=== PATIENT | male | born 1940 | race Caucasian/White ===

== ENCOUNTER 2023-07-14 10:01 | Outpatient (OUT) | payer MEDICARE, SELFPAY ==
[2023-07-14 07:49] LABS: Basophils Absolute Auto 0.1 10^3/uL (0.0-0.1); Basophils Percent Auto 1.2 % (0.2-2.0); Eosinophils Absolute Auto 0.4 10^3/uL (0.0-0.7); Eosinophils Percent Auto 7.3 % (0.9-7.0); Hematocrit 48.8 % (42.0-54.0); Hemoglobin 16.7 g/dL (14.0-18.0); Immature Granulocytes Abs Auto 0.01 10^3/uL (0.00-0.03); Immature Granulocytes Pct Auto 0.2 % (0.0-0.5); Lymphocytes Absolute Auto 1.7 10^3/uL (1.2-3.8); Lymphocytes Percent Auto 33.6 % (20.5-60.0); Mean Corpuscular HGB Conc 34.2 g/dL (29.9-35.2); Mean Corpuscular Hemoglobin 31.6 pg (25.9-34.0); Mean Corpuscular Volume 92.2 fL (80.0-94.0); Mean Platelet Volume 9.9 fL (9.5-13.5); Monocytes Absolute Auto 0.6 10^3/uL (0.3-0.8); Monocytes Percent Auto 11.4 % (1.7-12.0); Neutrophils Absolute Auto 2.3 10^3/uL (1.4-6.5); Neutrophils Percent Auto 46.3 % (43.0-75.0); Platelet Count 163 10^3/uL (150-450); Red Blood Count 5.29 10^6/uL (4.70-6.10); Red Cell Distribution Width 13.3 % (11.0-15.0); White Blood Count 4.9 10^3/uL (4.0-11.0)
[2023-07-14 07:59] LABS: Estimated Average Glucose 103 mg/dL; Glycohemoglobin A1C 5.2 % (4.5-6.2)
[2023-07-14 08:16] LABS: Alanine Aminotransferase 38 U/L (16-63); Albumin Globulin Ratio 1.3; Alkaline Phosphatase 100 U/L (46-116); Anion Gap 11.5; Aspartate Amino Transferase 21 U/L (15-37); BUN Creatinine Ratio 16.5; Bilirubin Total 0.7 mg/dL (0.2-1.0); Calcium 8.4 mg/dL (8.5-10.1); Carbon Dioxide 27.4 mmol/L (21.0-32.0); Chloride 105 mmol/L (98-107); Chol HDL Ratio 5.8; Cholesterol 145 mg/dL (<=200); Estimated GFR (African America >60 (>=60); Estimated GFR (Non-African Ame >60 (>=60); Globulin 3.1 g/dL; Glucose 104 mg/dL (74-106); HDL Cholesterol 25 mg/dL (40-60); Potassium 3.9 mmol/L (3.5-5.1); Sodium 140 mmol/L (136-145); Thyroid Stimulating Hormone 4.319 uIU/mL (0.358-3.740); Total Protein 7.1 g/dL (6.4-8.2); Triglycerides 718 mg/dL (<=150); VLDL CHOLESTEROL 143.6 mg/dL
[2023-07-14 08:45] LABS: LDL Cholesterol Direct 52 mg/dL
== END 2023-07-14 10:02 | disposition home or self-care (01) ==
LOC: LAB 07-20 10:02
PROVIDERS: PCP Family Medicine; Visit Provider Family Medicine
DX: E03.9 Hypothyroidism, unspecified (principal); Z79.899 Other long term (current) drug therapy; R53.83 Other fatigue; E78.1 Pure hyperglyceridemia; E78.5 Hyperlipidemia, unspecified; R73.09 Other abnormal glucose
CPT/HCPCS: 36415; 80053; 80061; 83036; 83721; 84439; 84443; 85025

== ENCOUNTER 2023-09-12 10:38 | Outpatient (OUT) | payer MEDICARE, SELFPAY ==
[2023-09-12 10:57] LABS: Basophils Absolute Auto 0.1 10^3/uL (0.0-0.1); Basophils Percent Auto 0.9 % (0.2-2.0); Eosinophils Absolute Auto 0.3 10^3/uL (0.0-0.7); Eosinophils Percent Auto 5.2 % (0.9-7.0); Hematocrit 46.6 % (42.0-54.0); Hemoglobin 15.7 g/dL (14.0-18.0); Immature Granulocytes Abs Auto 0.03 10^3/uL (0.00-0.03); Immature Granulocytes Pct Auto 0.5 % (0.0-0.5); Lymphocytes Absolute Auto 1.7 10^3/uL (1.2-3.8); Lymphocytes Percent Auto 25.4 % (20.5-60.0); Mean Corpuscular HGB Conc 33.7 g/dL (29.9-35.2); Mean Corpuscular Hemoglobin 31.3 pg (25.9-34.0); Mean Platelet Volume 9.5 fL (9.5-13.5); Monocytes Absolute Auto 0.8 10^3/uL (0.3-0.8); Monocytes Percent Auto 12.5 % (1.7-12.0); Neutrophils Absolute Auto 3.6 10^3/uL (1.4-6.5); Neutrophils Percent Auto 55.5 % (43.0-75.0); Platelet Count 199 10^3/uL (150-450); Red Blood Count 5.01 10^6/uL (4.70-6.10); Red Cell Distribution Width 12.9 % (11.0-15.0); White Blood Count 6.5 10^3/uL (4.0-11.0)
[2023-09-12 11:33] LABS: Alanine Aminotransferase 26 U/L (16-63); Albumin Globulin Ratio 1.1; Albumin Level 3.6 g/dL (3.4-5.0); Alkaline Phosphatase 107 U/L (46-116); Anion Gap 9.8; Aspartate Amino Transferase 16 U/L (15-37); BUN Creatinine Ratio 15.4; Bilirubin Total 0.6 mg/dL (0.2-1.0); Calcium 8.7 mg/dL (8.5-10.1); Carbon Dioxide 28.5 mmol/L (21.0-32.0); Chloride 105 mmol/L (98-107); Estimated GFR (African America >60 (>=60); Estimated GFR (Non-African Ame 59 (>=60); Globulin 3.4 g/dL; Glucose 89 mg/dL (74-106); Potassium 4.3 mmol/L (3.5-5.1); Sodium 139 mmol/L (136-145)
== END 2023-09-12 10:39 | disposition home or self-care (01) ==
LOC: LAB 10:41
PROVIDERS: PCP Family Medicine; Visit Provider Family Medicine
DX: R41.3 Other amnesia (principal); Z23 Encounter for immunization; E78.5 Hyperlipidemia, unspecified; R06.00 Dyspnea, unspecified; E03.9 Hypothyroidism, unspecified; I11.0 Hypertensive heart disease with heart failure
CPT/HCPCS: 36415; 80053; 83880; 85025

== ENCOUNTER 2023-09-26 12:47 | Outpatient (OUT) | payer MEDICARE, SELFPAY ==
--- NOTE | 2023-09-26 13:37 | CA_ITS ---
Patient Name: ESPERANZA POLANCO MR#: [id number] : 1940 Exam Date: 09/26/2023 Ordering Doctor: DR Wicho Dominguez . ECHOCARDIOGRAM REPORT PROCEDURE: CA ECHO DOPPLER COMPLETE INDICATIONS: Dyspnea, hypertension COMPARISON: None. DESCRIPTION: COMPLETE ECHOCARDIOGRAM Real-time transthoracic echocardiography with 2D, M-mode, spectral and color flow Doppler performed. QUALITY: Technical quality was good. LEFT VENTRICLE: Normal chamber size. Proximal septal hypertrophy (sigmoid septum). LV EF: Global left ventricular systolic function is normal; visually estimated ejection fraction is 55 to 60%. No obvious wall motion abnormalities. DIASTOLIC: Normal diastolic function. ATRIAL SEPTUM: Inadequately seen. LEFT ATRIUM: Normal chamber size. RIGHT ATRIUM: Normal chamber size. RIGHT VENTRICLE: Normal chamber size. Normal right ventricular systolic function. TRICUSPID VALVE: Normal mobility and thickness. Mild regurgitation. Doppler studies reveal mildly (35-45) elevated right sided pressures. RVSP 37 mmHg MITRAL VALVE: Normal mobility and thickness. No evidence of mitral valve stenosis. There is no mitral annular calcification. No mitral regurgitation. AORTIC VALVE: Normal trileaflet appearance. No visible sclerosis. Normal leaflet mobility. No evidence of aortic valve stenosis. No aortic regurgitation. AORTIC ROOT: Normal diameter and appearance. PULMONIC VALVE: Normal thickness and mobility. No stenosis. Trivial regurgitation. PERICARDIUM: No evidence of pericardial effusion. IVC: Collapses with inspirations. IVC is normal in size. CONCLUSION: 1. Global left ventricular systolic function is normal; visually estimated ejection fraction is 55 to 60% 2. The right ventricle is normal in size and systolic function 3. Normal diastolic function 4. Mild tricuspid regurgitation 5. Mildly elevated right ventricular systolic pressure Adult Echocardiography Procedure Report Left Ventricle LVEDD (3.7 - 5.6 cm): 3.66 cm LVESD (2.2 - 4.0 cm): 2.95 cm LVIVS thickness (0.6 - 1.2 cm): 1.27 cm LVPW thickness (0.5 - 1.0 cm): 1.00 cm e': 0.07 m/s E - e': 8.56 LVOT Max Gradient: 4.58 mm[Hg] LVOT Area (cm2): 1.07 m/s Peak Velocity (LVOT): 1.07 m/s Mean Velocity (LVOT): LVOT Diameter 2.90 cm Left Ventricular Ejection Fraction: Left Atrium LA Volume Index (2D A2C): 25.99 ml/m2 Left Atrium Systolic Dimension: 2.02 cm Mitral Valve MV E to A Ratio: 0.68 MV Max Gradient: MV Mean Gradient: Mitral Valve A-Wave Peak Velocity: 0.94 m/s Mitral Valve E-Wave Peak Velocity: 0.64 m/s Cardiovascular Orifice Area: Right Ventricle RV Internal Diastolic Dimension: Aorta AO Root Diam: 3.48 cm Ascending Ao Diam: 3.57 cm Aortic Valve AoV Area (Peak Yogi): 5.42 cm2, 5.42 cm2 AoV Area (VTI): Deceleration Moca: Pressure Half-Time: Peak Velocity(Antegrade Flow): 1.30 m/s Peak Gradient(Antegrade Flow): 6.78 mm[Hg] Mean Velocity(Antegrade Flow): Mean Gradient(Antegrade Flow): Velocity Time Integral: Tricuspid Valve Peak Velocity (Regurgitant Flow): 2.41 m/s, 2.91 m/s, 2.29 m/s Peak Velocity: Pulmonic Valve Mean Gradient: Mean Velocity: Peak Velocity: 1.22 m/s Peak Gradient: 5.21 mm[Hg], 6.67 mm[Hg] Right Atrium Right Atrium Systolic Pressure: 48.53 ml, 48.53 ml Dictated by: Dhruv Guo M.D. on 09/28/2023 at 14:11 Approved by: Dhruv Guo M.D. on 09/28/2023 at 14:17
== END 2023-09-26 12:48 | disposition home or self-care (01) ==
LOC: CARD 12:47
PROVIDERS: PCP Family Medicine; Visit Provider Family Medicine
DX: R06.00 Dyspnea, unspecified (principal)
CPT/HCPCS: 93306

== ENCOUNTER 2023-10-09 06:56 | Outpatient (OUT) | payer MEDICARE, SELFPAY ==
--- NOTE | 2023-10-09 06:15 | NM_ITS ---
Patient Name: ESPERANZA POLANCO MR#: [id number] : 1940 Exam Date: 10/09/2023 Ordering Doctor: DR Wicho Dominguez . RADIOLOGY REPORT PROCEDURE: NM OLAF PERF SPECT REST STR COMPARISON: None. INDICATIONS: DYSPNEA TECHNIQUE: Exam Description: Stress/Rest one day protocol gated SPECT Rest Imagin.4 mCi Tc-99m Cardiolite IV on 10/09/2023 Stress Imaging 30.6 mCi Tc-99m Cardiolite IV on 10/09/2023 Exercise Protocol: 0.4 mg Lexiscan given IV Heart Rate (bpm): Rest: 54 Max: 80 PMHR: 58 Blood Pressure: Rest: 170/104 Max: 198/118 Symptoms: Rest and peak stress ECG findings were normal and the exercise portion of the study was normal per attending physician Dr. Johnson . For more details please see separate cardiac stress test report. FINDINGS: QUALITY OF STUDY: Excellent. PERFUSION DEFECT: None. LOCATION: N/A SIZE: N/A. SEVERITY: N/A. TYPE: N/A. WALL MOTION: Normal. LV SIZE: Normal. 84 mL. TID / TCD: None; 0.8 LVEF: Normal. Calculated EF 79%. SUMMARY: Myocardial perfusion imaging study is NORMAL. CONCLUSION: 1. Normal nuclear medicine myocardial perfusion scan. Dictated by: Oswaldo Grigsby M.D. on 10/09/2023 at 15:14 Approved by: Oswaldo Grigsby M.D. on 10/09/2023 at 15:29
[2023-10-09] MEDS: REGADENOSON 0.4 MG/5 ML SYRINGE IV (08:24)
--- NOTE | 2023-10-09 11:20 | P.STRESS_ITS ---
Stress Test Stress Test Requesting physician: Wicho Dominguez Procedure: Lexiscan Cardiolite stress test General Information: Reason for Stress Test: Dyspnea Cardiac History and Risk Factors: History of CAD. Brother has rheumatic heart disease. Resting 12 - Lead Electrocardiogram: Rate & rhythm: Sinus bradycardia at a rate of 53. [place]: Normal T-waves: Normal orientation ST-segments: Slight depression/downsloping in II & aVF, and V5 & V6 Stress Test: Protocol: Lexiscan protocol was initiated with injection of 0.4mg Lexiscan IV push followed by Cardiolite. Blood pressure: Initial: 170/104, Maximum: 198/118 Rate & rhythm: Patient remained in sinus rhythm during the exercise and recovery portions of the study.? The maximum heart rate was 80, which was 58% of the maximum predicted heart rate 136. Occasional PAC & PVC noted. ST-segments & T-waves: There were no T-wave changes and no ST-segment changes when compared to the baseline EKG. Patient response/symptoms: There were no symptoms similar to the chief complain t. Interpretation: Normal Lexiscan Cardiolite stress test. Asymptomatic. Cardiolite imaging interpretation will be reported separately. Clinical correlation required.?
== END 2023-10-09 06:57 | disposition home or self-care (01) ==
LOC: NM 06:56
PROVIDERS: PCP Family Medicine; Visit Provider Family Medicine
DX: R06.00 Dyspnea, unspecified (principal)
CPT/HCPCS: 78452; 93017; A9500; J2785

== ENCOUNTER 2024-05-09 22:23 | Observation (INO) | payer MEDICARE, SELFPAY ==
[2024-05-09] VITALS (12 sets, daily range): BP systolic 173–202; BP diastolic 116–122; PULSE 63–84; TEMP 36.6; O2SAT 95–98; BMI 28.3
--- OUTSIDE RECORDS SUMMARY | 2024-05-09 22:32 | XMS_ITS | CCD ---
Author Organization [facility] Care Team Providers Care Baggagemaster Name Role Phone PHYSICIAN, DEFAULT Unavailable Unavailable PHYSICIAN, DEFAULT Unavailable Unavailable SERINA, DR CALDERÓN Primary Care Unavailable HAY, DR HAMMER Admitting Unavailable HAY, DR HAMMER Attending Unavailable SERINA, DR CALDERÓN Admitting Unavailable SERINA, DR CALDERÓN Attending Unavailable SERINA, DR CALDERÓN Primary Care Unavailable SERINA, DR CALDERÓN Consulting Unavailable ZIEBER, DR BERNIE Jacobs Consulting Unavailable SERINA, DR CALDERÓN Admitting Unavailable SERINA, DR CALDERÓN Attending Unavailable SERINA, DR CALDERÓN Primary Care Unavailable SERINA, DR CALDERÓN Consulting Unavailable SERINA, DR CALDERÓN Primary Care Unavailable SERINA, DR CALDERÓN Admitting Unavailable SERINA, DR CALDERÓN Attending Unavailable SERINA, DR CALDERÓN Consulting Unavailable HOWARD QIU Consulting Unavailable TATO, KAIDEN Consulting Unavailable CEFERINO VALDOVINOS Consulting Unavailable Allergies Allergy Classification Reported Allergen(s) Allergy Type Date of Onset Reaction(s) Facility (1 source) Colestipol Drug Allergy [facility] Repository Problems Problem Classification Problem Date Documented Date Episodic/Chronic Calculus of urinary tract (2 sources) Calculus of kidney; Translations: [Personal history of urinary calculi] Onset: 2 Episodic Cardiac dysrhythmias (1 source) Bradycardia, unspecified; Translations: [BRADYCARDIA UNSPECIFIED] Onset: 2 Episodic Coronary atherosclerosis and other heart disease (2 sources) Atherosclerotic heart disease of jena coronary artery without angina pectoris; 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] Onset: 2 Chronic Disorders of lipid metabolism (1 source) Pure hypercholesterolemia, unspecified; Translations: [PURE HYPERCHOLESTEROLEMIA UNSPEC] Onset: 2 Chronic Essential hypertension (1 source) Essential (primary) hypertension; Translations: [ESSENTIAL PRIMARY HYPERTENSION] Onset: 2 Chronic Genitourinary symptoms and ill-defined conditions (4 sources) Hematuria, unspecified; Translations: [HEMATURIA UNSPECIFIED] Onset: 2 Episodic Hyperplasia of prostate (1 source) Benign prostatic hyperplasia without lower urinary tract symptoms; Translations: [BENIGN PROSTATIC HYPRPLASIA WO LUTS] Onset: 2 Chronic Malaise and fatigue (1 source) Other fatigue; Translations: [OTHER FATIGUE] Onset: 2 Episodic Nonspecific chest pain (4 sources) Chest pain, unspecified; Translations: [Other chest pain] Onset: 2 Episodic Other aftercare (1 source) Other shelter (current) drug therapy; Translations: [OTH INTERMEDIATE CURRENT DRUG THERAPY] Onset: 2 Episodic Other aftercare (1 source) 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; 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] Onset: 2 Episodic Other ear and sense organ disorders (1 source) Unspecified hearing loss, unspecified ear; Translations: [UNS HEARING LOSS UNSPECIFIED EAR] Onset: 2 Chronic Other lower respiratory disease (1 source) Dyspnea, unspecified; Translations: [DYSPNEA UNSPECIFIED] Onset: 2 Episodic Residual codes; unclassified (4 sources) Procedure and treatment not carried out for other reasons; Translations: [PROC AND TX NOT CARRIED OUT OTH REASONS] Onset: 2 Episodic Thyroid disorders (1 source) Hypothyroidism, unspecified; Translations: [HYPOTHYROIDISM UNSPECIFIED] Onset: 2 Chronic Unclassified (1 source) CONTACT W/AND (SUSP) EXPOS COVID-19; Translations: [CONTACT W/AND (SUSP) EXPOS COVID-19] Onset: 2 Results Test Name Value Interpretation Reference Range Facil ity US KIDNEYS BLADDERon 022 US KIDNEYS BLADDER EXAMINATION: US KIDNEYS BLADDER HISTORY: Blood in urine COMPARISON: No relevant comparison available. TECHNIQUE: Ultrasound examination was performed of the kidneys and urinary bladder. FINDINGS: RIGHT KIDNEY: Contain several small nonobstructing stones. Mild cortical thinning. No hydronephrosis or mass. Kidney: 10.2 x 5.2 x 5.4 cm LEFT KIDNEY: Contain several small nonobstructing stones, a few benign-appearing cysts, largest is 3.5 cm. Mild cortical thinning. Kidney: 12.3 x 4.9 x 4.7 cm BLADDER: Enlarged heterogeneous prostate protruding into base of bladder, 8.0 x 4.8 x 5.8 cm (115 cc). No focal bladder wall thickening or stones. URETERAL JETS: Visualized bilaterally. IMPRESSION: 1. Bilateral nonobstructing nephrolithiasis. No appreciable renal mass. 2. Enlarged prostate protruding into base of bladder. No appreciable bladder mass. Electronically authenticated by: BERNIE COLINDRES Date: 2022-09-12 10:13 Normal [facility] PSA, FREE AND TOTAL RATIOon 09-10-2022 % Free PSA 44.1 % Normal [facility] Comment on above: Result Comment: The table below lists the probability of prostate cancer for men with non-suspicious FIDEL results and total PSA between 4 and 10 ng/mL, by patient age (Aida et al, LOLI 1998, 279:1542). % Free PSA 50-64 yr 65-75 yr 0.00-10.00% 56% 55% 10.01-15.00% 24% 35% 15.01-20.00% 17% 23% 20.01-25.00% 10% 20% >25.00% 5% 9% Please note: Aida et al did not make specific recommendations regarding the use of percent free PSA for any other population of men. Performed By: #### C MP, BNP #### [facility] [address] [place] [address] Dr. Yaz Nur Prostate specific Ag [Mass/Vol] 2.7 ng/mL Normal 0.0-4.0 [facility] Comment on above: Result Comment: Cooper MAY methodology. . According to the [place] [employer], Serum PSA should decrease and remain at undetectable levels after radical prostatectomy. The AUA defines biochemical recurrence as an initial PSA value 0.2 ng/mL or greater followed by a subsequent confirmatory PSA value 0.2 ng/mL or greater. Values obtained with different assay methods or kits cannot be used interchangeably. Results cannot be interpreted as absolute evidence of the presence or absence of malignant disease. Performed By: #### C MP, BNP #### [facility] [address], [place] [address] Dr. Yaz Nur PSA, Free 1.19 ng/mL Normal N/A [facility] Comment on above: Result Comment: Cooper MAY methodology. Performed By: #### C MP, BNP #### [facility] [address] [place] [address] Dr. Yaz Nur CBC AUTO DIFFon 09-09-2022 BASO # 0.1 103/ul Normal 0.0-0.1 [facility] Comment on above: Performed By: #### C MP, BNP #### [facility] [address] [place] [address] Dr. Yaz Nur Basophils/100 WBC (Bld) 1.0 % Normal 0.2-2.0 [facility] Comment on above: Performed By: #### C MP, BNP #### [facility] [address] [place] [address] Dr. Yaz Nur EO # 0.5 103/ul Normal 0.0-0.7 [facility] Comment on above: Performed By: #### C MP, BNP #### [facility] [address] [place] [address] Dr. Yaz Nur Eosinophils/100 WBC (Bld) 8.8 % Critically high 0.9-7.0 [facility] Comment on above: Performed By: #### C MP, BNP #### [facility] [address] [place] [address] Dr. Yaz Nur Erythrocyte distribution width (RBC) [Ratio] 13.4 % Normal 11.0-15.0 [facility] Comment on above: Performed By: #### C MP, BNP #### [facility] [address] [place] [address] Dr. Yaz Nur Hematocrit (Bld) [Volume fraction] 46.8 % Normal 42.0-54.0 [facility] Comment on above: Performed By: #### C MP, BNP #### [facility] [address] [place] [address] Dr. Yaz Nur Hemoglobin (Bld) [Mass/Vol] 16.2 g/dL Normal 14.0-18.0 [facility] Comment on above: Performed By: #### C MP, BNP #### [facility] [address] [place] [address] Dr. Yaz Nur IG # 0.01 10e3/ul Normal 0.00-0.03 [facility] Comment on above: Performed By: #### C MP, BNP #### [facility] [address] [place] [address] Dr. Yaz Nur IG % 0.2 % Normal 0.0-0.5 [facility] Comment on above: Performed By: #### C MP, BNP #### [facility] [address] [place] [address] Dr. Yaz Nur LYMPH # 1.5 103/ul Normal 1.2-3.8 [facility] Comment on above: Performed By: #### C MP, BNP #### [facility] [address] [place] [address] Dr. Yaz Nur Lymphocytes/100 WBC (Bld) 29.2 % Normal 20.5-60.0 [facility] Comment on above: Performed By: #### C MP, BNP #### [facility] [address] [place] [address] Dr. Yaz Nur MANUAL DIFF REQ NO Normal [facility] Comment on above: Performed By: #### C MP, BNP #### [facility] [address] [place] [address] Dr. Yaz Nur MCH (RBC) [Entitic mass] 31.4 pg Normal 25.9-34.0 [facility] Comment on above: Performed By: #### C MP, BNP #### [facility] [address] [place] [address] Dr. Yaz Nur MCHC (RBC) [Mass/Vol] 34.6 g/dL Normal 29.9-35.2 [facility] Comment on above: Performed By: #### C MP, BNP #### [facility] [address] [place] [address] Dr. Yaz Nur MCV (RBC) [Entitic vol] 90.7 fL Normal 80.0-94.0 [facility] Comment on above: Performed By: #### C MP, BNP #### [facility] [address] [place] [address] Dr. Yaz Nur MONO # 0.6 103/ul Normal 0.3-0.8 [facility] Comment on above: Performed By: #### C MP, BNP #### [facility] [address] [place] [address] Dr. Yaz Nur Monocytes/100 WBC (Bld) 11.2 % Normal 1.7-12.0 [facility] Comment on above: Performed By: #### C MP, BNP #### [facility] [address] [place] [address] Dr. Yaz Nur NEUT # 2.5 103/ul Normal 1.4-6.5 [facility] Comment on above: Performed By: #### C MP, BNP #### [facility] [address] [place] [address] Dr. Yaz Nur Neutrophils/100 WBC (Bld) 49.6 % Normal 43.0-75.0 [facility] Comment on above: Performed By: #### C MP, BNP #### [facility] [address] [place] [address] Dr. Yaz Nur Platelet mean volume (Bld) [Entitic vol] 9.9 fL Normal 9.5-13.5 [facility] Comment on above: Performed By: #### C MP, BNP #### [facility] [address] [place] [address] Dr. Yaz Nur PLT 157 103/ul Normal 150-450 [facility] Comment on above: Performed By: #### C MP, BNP #### [facility] [address] [place] [address] Dr. Yaz Nur RBC 5.16 106/ul Normal 4.70-6.10 [facility] Comment on above: Performed By: #### C MP, BNP #### [facility] [address] [place] [address] Dr. Yaz Nur WBC 5.1 103/ul Normal 4.0-11.0 [facility] Comment on above: Performed By: #### C MP, BNP #### [facility] [address] [place] [address] Dr. Yaz Nur CULTURE URINEon 09-09-2022 CULTURE URINE Culture Observations : LIGHT GROWTH OF MIXED SKIN COCO. NO POTENTIAL PATHOGENS SEEN. Normal [facility] Comment on above: Performed By: #### C MP, BNP #### [facility] [address] [place] [address] Dr. Yaz Nur PROTIMEon 09-09-2022 INR Coag (PPP) [Relative time] 1.06 {INR} Normal [facility] Comment on above: Performed By: #### C MP, BNP #### [facility] [address] [place] [address] Dr. Yaz Nur INR GUIDELINES SEE BELOW Normal [facility] Comment on above: Result Comment: DAMON RED INR: 2.0 - 3.0 CONDITIONS NOT LISTED BELOW 2.5 - 3.5 FOR PROSTHETIC HEART VALVE REPLACEMENT 2.5 - 3.5 RECURRENT THROMBOSIS Performed By: #### C MP, BNP #### [facility] [address] [place] [address] Dr. Yaz Nur PT Coag (PPP) [Time] 11.4 s Normal 9.0-11.6 [facility] Comment on above: Performed By: #### C MP, BNP #### [facility] [address] [place] [address] Dr. Yaz Nur PTTon 09-09-2022 aPTT Coag (Bld) [Time] 30.0 s Normal 22.3-36.2 [facility] Comment on above: Performed By: #### C MP, BNP #### [facility] [address] [place] [address] Dr. Yaz Nur UA RANDOM W/MICROSCOPICon BACTERIA NONE SEEN Normal NONE SEEN [facility] Comment on above: Performed By: #### C MP, BNP #### [facility] [address] [place] [address] Dr. Yaz Nur Bilirubin Ql (U) Negative Normal NEGATIVE [facility] Comment on above: Performed By: #### C MP, BNP #### [facility] [address] [place] [address] Dr. Yaz Nur CAST NONE SEEN Normal NONE SEEN [facility] Comment on above: Performed By: #### C MP, BNP #### [facility] [address] [place] [address] Dr. Yaz Nur Clarity (U) CLEAR Normal CLEAR [facility] Comment on above: Performed By: #### C MP, BNP #### [facility] [address] [place] [address] Dr. Yaz Nur Color (U) YELLOW Normal YELLOW [facility] Comment on above: Performed By: #### C MP, BNP #### [facility] [address] [place] [address] Dr. Yaz Nur Crystals LM Nom (Urine sed) NONE SEEN Normal NONE SEEN [facility] Comment on above: Performed By: #### C MP, BNP #### [facility] [address] [place] [address] Dr. Yaz Nur Epithelial cells LM Ql (Urine sed) RARE Normal NONE SEEN /RARE [facility] Comment on above: Performed By: #### C MP, BNP #### [facility] [address] [place] [address] Dr. Yaz Nur Glucose Ql (U) Negative Normal NEGATIVE [facility] Comment on above: Performed By: #### C MP, BNP #### [facility] [address] [place] [address] Dr. Yaz Nur Hemoglobin Ql (U) Negative Normal NEGATIVE [facility] Comment on above: Performed By: #### C MP, BNP #### [facility] [address] [place] [address] Dr. Yaz Nur Ketones Ql (U) Negative Normal NEGATIVE [facility] Comment on above: Performed By: #### C MP, BNP #### [facility] [address] [place] [address] Dr. Yaz Nur LEUKOCYTES Negative Normal NEGATIVE [facility] Comment on above: Performed By: #### C MP, BNP #### [facility] [address] [place] [address] Dr. Yaz Nur MUCOUS NONE SEEN Normal NONE SEEN [facility] Comment on above: Performed By: #### C MP, BNP #### [facility] [address] [place] [address] Dr. Yaz Nur Nitrite Ql (U) Negative Normal NEGATIVE [facility] Comment on above: Performed By: #### C MP, BNP #### [facility] [address] [place] [address] Dr. Yaz Nur pH (U) 5.5 [pH] Normal 5-9 [facility] Comment on above: Performed By: #### C MP, BNP #### [facility] [address] [place] [address] Dr. Yaz Nur RBC 0-2 Normal 0-2 [facility] Comment on above: Performed By: #### C MP, BNP #### [facility] [address] [place] [address] Dr. Yaz Nur SPEC GRAVITY >=1.030 Abnormal 1.005-<=1.025 [facility] Comment on above: Performed By: #### C MP, BNP #### [facility] [address] [place] [address] Dr. Yaz Nur UA PROTEIN Negative Normal NEGATIVE/ TRACE [facility] Comment on above: Performed By: #### C MP, BNP #### [facility] [address] [place] [address] Dr. Yza Nur Urobilinogen Qn (U) 0.2 {Joseph'U}/dL Normal 0.2 - 1. 0 [facility] Comment on above: Performed By: #### C MP, BNP #### [facility] [address] [place] [address] Dr. Yaz Nur WBC 0-2 Abnormal NONE SEEN [facility] Comment on above: Performed By: #### C MP, BNP #### [facility] [address] [place] [address] Dr. Yaz Nur BNPon 08-18-2022 Natriuretic peptide B (Bld) [Mass/Vol] 228.0 pg/mL Normal <=1,800.0 [facility] Comment on above: Performed By: #### C MP, BNP #### [facility] [address] [place] [address] Dr. Yaz Nur CARDIAC KANDIS 3-6on 2 CK [Catalytic activity/Vol] 165 U/L Normal 39-308 [facility] Comment on above: Performed By: #### C MREP #### [facility] [address] [place] [address] Dr. Yaz Nur CK.MB [Mass/Vol] 2.85 ng/mL Normal <=3.[address] [facility] Comment on above: Performed By: #### C MREP #### [facility] [address] [place] [address] Dr. Yaz Nur HSTROP 6.7 pg/mL Normal 4.0-76.1 [facility] Comment on above: Result Comment: CUT- OFF POINTS HAVE BEEN ESTABLISHED BASED ON THE FOURTH UNIVERSAL DEFINITIONS OF MYOCARDIAL INFARCTION. THE UPPER REFERENCE LIMIT (URL) OF TROPONIN, DEFINED THE 99TH PERCENTILE OF cTnI DISTRIBUTION IN A REFERENCE POPULATION, HAS BEEN CONFIRMED THE DECISION THRESHOLD FOR CA DIAGNOSIS. Performed By: #### C MREP #### [facility] [address] [place] [address] Dr. Yaz Nur CBC AUTO DIFFon 08-18-2022 BASO # 0.1 103/ul Normal 0.0-0.1 [facility] Comment on above: Performed By: #### C BC #### [facility] [address] [place] [address] Dr. Yaz Nur Basophils/100 WBC (Bld) 1.3 % Normal 0.2-2.0 [facility] Comment on above: Performed By: #### C BC #### [facility] [address] [place] [address] Dr. Yaz Nur EO # 0.6 103/ul Normal 0.0-0.7 [facility] Comment on above: Performed By: #### C BC #### [facility] [address] [place] [address] Dr. Yaz Nur Eosinophils/100 WBC (Bld) 9.9 % Critically high 0.9-7.0 [facility] Comment on above: Performed By: #### C BC #### [facility] [address] [place] [address] Dr. Yaz Nur Erythrocyte distribution width (RBC) [Ratio] 13.2 % Normal 11.0-15.0 [facility] Comment on above: Performed By: #### C BC #### [facility] [address] [place] [address] Dr. Yaz Nur Hematocrit (Bld) [Volume fraction] 47.0 % Normal 42.0-54.0 [facility] Comment on above: Performed By: #### C BC #### [facility] [address] [place] [address] Dr. Yaz Nur Hemoglobin (Bld) [Mass/Vol] 15.8 g/dL Normal 14.0-18.0 [facility] Comment on above: Performed By: #### C BC #### [facility] [address] [place] [address] Dr. Yaz Nur IG # 0.02 10e3/ul Normal 0.00-0.03 [facility] Comment on above: Performed By: #### C BC #### [facility] [address] [place] [address] Dr. Yaz Nur IG % 0.3 % Normal 0.0-0.5 [facility] Comment on above: Performed By: #### C BC #### [facility] [address] [place] [address] Dr. Yaz Nur LYMPH # 1.8 103/ul Normal 1.2-3.8 [facility] Comment on above: Performed By: #### C BC #### [facility] [address] [place] [address] Dr. Yaz Nur Lymphocytes/100 WBC (Bld) 28.1 % Normal 20.5-60.0 [facility] Comment on above: Performed By: #### C BC #### [facility] [address] [place] [address] Dr. Yaz Nur MANUAL DIFF REQ NO Normal [facility] Comment on above: Performed By: #### C BC #### [facility] [address] [place] [address] Dr. Yaz Nur MCH (RBC) [Entitic mass] 31.3 pg Normal 25.9-34.0 [facility] Comment on above: Performed By: #### C BC #### [facility] [address] [place] [address] [address] Yaz Nur MCHC (RBC) [Mass/Vol] 33.6 g/dL Normal 29.9-35.2 [facility] Comment on above: Performed By: #### C BC #### [facility] [address] [address] [address] Yaz Nur MCV (RBC) [Entitic vol] 93.1 fL Normal 80.0-94.0 [facility] Comment on above: Performed By: #### C BC #### [facility] [address] [place] [address] Dr. Yaz Nur MONO # 0.6 103/ul Normal 0.3-0.8 [facility] Comment on above: Performed By: #### C BC #### [facility] [address] [place] [address] Dr. Yaz Nur Monocytes/100 WBC (Bld) 9.7 % Normal 1.7-12.0 [facility] Comment on above: Performed By: #### C BC #### [facility] [address] [place] [address] Dr. Yaz Nur NEUT # 3.2 103/ul Normal 1.4-6.5 [facility] Comment on above: Performed By: #### C BC #### [facility] [address] [place] [address] Dr. Yaz Nur Neutrophils/100 WBC (Bld) 50.7 % Normal 43.0-75.0 [facility] Comment on above: Performed By: #### C BC #### [facility] [address] [address] [address] Yaz Nur Platelet mean volume (Bld) [Entitic vol] 9.9 fL Normal 9.5-13.5 [facility] Comment on above: Performed By: #### C BC #### [facility] [address] [address] [address] Yaz Nur PLT 144 103/ul Critically low 150-450 [facility] Comment on above: Performed By: #### C BC #### [facility] [address] [address] [address] Yaz Nur RBC 5.05 106/ul Normal 4.70-6.10 [facility] Comment on above: Performed By: #### C BC #### [facility] [id number] Yaz Nur WBC 6.4 103/ul Normal 4.0-11.0 [facility] Comment on above: Performed By: #### C BC #### [facility] [id number] Yaz Nur ECHOCARDIO M/2D COMPLETEon 1 ECHOCARDIO M/2D COMPLETE Patient: ESPERANZA POLANCO Exam Date: 08/18/2022 : 1940 Gender:M Ordering : DR STEPHANE SMALLS . Admission #: [id number] Family : Order #: [id number] CLICK HERE TO VIEW EXAM ECHOCARDIOGRAM REPORT PROCEDURE: CARDIO PULMONARY ECHOCARDIO M/2D COMP INDICATIONS: Chest pain COMPARISON: None. DESCRIPTION: COMPLETE ECHOCARDIOGRAM Real-time transthoracic echocardiography with 2D, M-mode, spectral and color flow Doppler performed. QUALITY: Technical quality was good. LEFT VENTRICLE: Normal chamber size. Borderline left ventricular hypertrophy. Global left ventricular systolic function is normal. LV EF: Estimated left ventricular ejection fraction is 60-65%. DIASTOLIC: Diastolic function is indeterminate. ATRIAL SEPTUM: Intact by color Doppler. LEFT ATRIUM: Normal chamber size. RIGHT ATRIUM: Moderate dilatation. RIGHT VENTRICLE: Mildly dilated. Normal right ventricular systolic function. TRICUSPID VALVE: Normal mobility and thickness. No stenosis with mild to moderate regurgitation. No evidence of pulmonary hypertension. RVSP is 30 mmHg. MITRAL VALVE: Normal mobility and thickness. No mitral valve prolapse. No evidence of mitral valve stenosis. There is no mitral annular calcification. No mitral regurgitation. AORTIC VALVE: Normal trileaflet appearance. No visible sclerosis. Normal leaflet mobility. No evidence of aortic valve stenosis. Trivial aortic regurgitation. AORTIC ROOT: Normal diameter (3.2 cm) and appearance. Moderate dilatation of the ascending aorta, measuring 4.3 x 4.8 cm. PULMONIC VALVE: Normal thickness and mobility. No stenosis. Trivial regurgitation. PERICARDIUM: No evidence of pericardial effusion. IVC: Collapses with inspirations. Normal size. PLEURA: CONCLUSION: 1. Left ventricular systolic function is normal. LVEF is 60 to 65%. 2. Mildly dilated right ventricle with normal systolic function. 3. Moderate right atrial dilatation. 4. Mild to moderate tricuspid regurgitation. 5. Normal right-sided pressures. 6. Moderate dilatation of the ascending aorta (up to 4.8 cm). Adult Echocardiography Procedure Report Left Ventricle LVEDD (3.7 - 5.6 cm): 4.42 cm LVESD (2.2 - 4.0 cm): 3.03 cm LVIVS thickness (0.6 - 1.2 cm): 1.08 cm LVPW thickness (0.5 - 1.0 cm): 0.97 cm e': 0.08 m/s E - e': 7.03 LVOT Max Gradient: 3.19 mm[Hg] Peak Velocity (LVOT): 0.89 m/s LVOT Diameter 2.18 cm Left Ventricular Ejection Fraction: 60-65% Left Atrium LA Volume Index (2D A2C): 62.80 ml, 62.80 ml Left Atrium Systolic Dimension: 3.12 cm Mitral Valve MV E to A Ratio: 0.68 Mitral Valve A-Wave Peak Velocity: 0.84 m/s Mitral Valve E-Wave Peak Velocity: 0.57 m/s Right Ventricle RV Internal Diastolic Dimension: 3.80 cm Aorta AO Root Diam: 3.19 cm Ascending Ao Diam: 4.14 cm Aortic Valve AoV Area (Peak Yogi): 3.41 cm2, 3.41 cm2 Peak Velocity(Antegrade Flow): 0.98 m/s Peak Gradient(Antegrade Flow): 3.81 mm[Hg] Mean Velocity(Antegrade Flow): 0.61 m/s Mean Gradient(Antegrade Flow): 1.78 mm[Hg] Velocity Time Integral: 25.03 cm Tricuspid Valve Peak Velocity (Regurgitant Flow): 2.28 m/s, 2.34 m/s, 2.61 m/s Peak Velocity: 0.55 m/s Pulmonic Valve Peak Velocity: 1.09 m/s, 1.07 m/s Peak Gradient: 4.76 mm[Hg], 4.56 mm[Hg] Right Atrium Right Atrium Systolic Pressure: 55.78 ml, 55.78 ml Dictated by: Miguel Jaimes M.D. on 08/22/2022 at 07:44 Approved by: Miguel Jaimes M.D. on 08/22/2022 at 07:53 Normal [facility] PROF 14(COMP METB)on 08-18- 022 Albumin [Mass/Vol] 3.9 g/dL Normal 3.4-5.0 [facility] Comment on above: Performed By: #### C MP, BNP #### [facility] [address] [address] [address] Yaz Nur Albumin/Globulin [Mass ratio] 1.3 {ratio} [facility] Comment on above: Performed By: #### C MP, BNP #### [facility] [address] [place] [address] Dr. Yaz Nur ALP [Catalytic activity/Vol] 94 U/L Normal 46-116 [facility] Comment on above: Performed By: #### C MP, BNP #### [facility] [address] [address] [address] Yaz Nur ALT [Catalytic activity/Vol] 21 U/L Normal 16-63 [facility] Comment on above: Performed By: #### C MP, BNP #### [facility] [address] [address] [address] Yaz Nur Anion gap [Moles/Vol] 8.8 mmol/L Normal [facility] Comment on above: Performed By: #### C MP, BNP #### [facility] [address] [address] [address] Yaz Nur AST [Catalytic activity/Vol] 16 U/L Normal 15-37 [facility] Comment on above: Performed By: #### C MP, BNP #### [facility] [address] [address] [address] Yaz Nur Bilirubin [Mass/Vol] 1.0 mg/dL Normal 0.2-1.0 [facility] Comment on above: Performed By: #### C MP, BNP #### [facility] [address] [address] [address] Yaz Nur Calcium [Mass/Vol] 8.6 mg/dL Normal 8.5-10.1 [facility] Comment on above: Performed By: #### C MP, BNP #### [facility] [address] [place] [address] Dr. Yaz Nur Chloride [Moles/Vol] 106 mmol/L Normal 98-107 [facility] Comment on above: Performed By: #### C MP, BNP #### [facility] [address] [place] [address] Dr. Yaz Nur CO2 [Moles/Vol] 28.5 mmol/L Normal 21.0-32.0 [facility] Comment on above: Performed By: #### C MP, BNP #### [facility] [address] [place] [address] Dr. Yaz Nur Creatinine [Mass/Vol] 1.14 mg/dL Normal 0.70-1.30 [facility] Comment on above: Performed By: #### C MP, BNP #### [facility] [address] [place] [address] Dr. Yaz Nur EGFR-AF FAROESE >60 Normal >=60 [facility] Comment on above: Performed By: #### C MP, BNP #### [facility] [address] [place] [address] Dr. Yaz Nur EGFR-NON AF FAROESE >60 Normal >=60 [facility] Comment on above: Performed By: #### C MP, BNP #### [facility] [address] [place] [address] Dr. Yaz Nur Globulin (S) [Mass/Vol] 2.9 g/dL Normal [facility] Comment on above: Performed By: #### C MP, BNP #### [facility] [address] [place] [address] Dr. Yaz Nur Glucose [Mass/Vol] 82 mg/dL Normal 74-106 [facility] Comment on above: Performed By: #### C MP, BNP #### [facility] [address] [place] [address] Dr. Yaz Nur Potassium [Moles/Vol] 4.3 mmol/L Normal 3.5-5.1 [facility] Comment on above: Performed By: #### C MP, BNP #### [facility] [address] [place] [address] Dr. Yaz Nur Protein [Mass/Vol] 6.8 g/dL Normal 6.4-8.2 [facility] Comment on above: Performed By: #### C MP, BNP #### [facility] [address] [place] [address] Dr. Yaz Nur Sodium [Moles/Vol] 139 mmol/L Normal 136-145 [facility] Comment on above: Performed By: #### C MP, BNP #### [facility] [address] [place] [address] Dr. Yaz Nur Urea nitrogen [Mass/Vol] 15.0 mg/dL Normal 7.0-18.0 [facility] Comment on above: Performed By: #### C MP, BNP #### [facility] [address] [place] [address] Dr. Yaz Nur Urea nitrogen/Creatinine [Mass ratio] 13.2 mg/mg Normal [facility] Comment on above: Performed By: #### C MP, BNP #### [facility] [address] [place] [address] Dr. Yaz Nur BNPon 08-17-2022 Natriuretic peptide B (Bld) [Mass/Vol] 274.0 pg/mL Normal <=1,800.0 [facility] Comment on above: Performed By: #### B MEDICAL RESEARCH ASSISTANT, CMP, HSTROPN #### [facility] [address] [place] [address] Dr. Yaz Nur CARDIAC KANDIS 3-6on 2 CK [Catalytic activity/Vol] 190 U/L Normal 39-308 [facility] Comment on above: Performed By: #### C MP, BNP #### [facility] [address] [place] [address] Dr. Yaz Nur CK.MB [Mass/Vol] 3.22 ng/mL Normal <=3.[address] [facility] Comment on above: Performed By: #### C MP, BNP #### [facility] [address] [place] [address] Dr. Yaz Nur HSTROP 7.3 pg/mL Normal 4.0-76.1 [facility] Comment on above: Result Comment: CUT- OFF POINTS HAVE BEEN ESTABLISHED BASED ON THE FOURTH UNIVERSAL DEFINITIONS OF MYOCARDIAL INFARCTION. THE UPPER REFERENCE LIMIT (URL) OF TROPONIN, DEFINED THE 99TH PERCENTILE OF cTnI DISTRIBUTION IN A REFERENCE POPULATION, HAS BEEN CONFIRMED THE DECISION THRESHOLD FOR CA DIAGNOSIS. Performed By: #### C MP, BNP #### [facility] [address] [place] [address] Dr. Yaz Nru CBC AUTO DIFFon 08-17-2022 BASO # 0.1 103/ul Normal 0.0-0.1 [facility] Comment on above: Performed By: #### C BC #### [facility] [address] [place] [address] Dr. Yaz Nur Basophils/100 WBC (Bld) 1.5 % Normal 0.2-2.0 [facility] Comment on above: Performed By: #### C BC #### [facility] [address] [place] [address] Dr. Yaz Nur EO # 0.6 103/ul Normal 0.0-0.7 [facility] Comment on above: Performed By: #### C BC #### [facility] [address] [place] [address] Dr. Yaz Nur Eosinophils/100 WBC (Bld) 9.1 % Critically high 0.9-7.0 [facility] Comment on above: Performed By: #### C BC #### [facility] [address] [place] [address] Dr. Yaz Nur Erythrocyte distribution width (RBC) [Ratio] 13.2 % Normal 11.0-15.0 [facility] Comment on above: Performed By: #### C BC #### [facility] [address] [place] [address] Dr. Yaz Nur Hematocrit (Bld) [Volume fraction] 47.2 % Normal 42.0-54.0 [facility] Comment on above: Performed By: #### C BC #### [facility] [address] [place] [address] Dr. Yaz Nur Hemoglobin (Bld) [Mass/Vol] 16.2 g/dL Normal 14.0-18.0 [facility] Comment on above: Performed By: #### C BC #### [facility] [address] [place] [address] Dr. Yaz Nur IG # 0.02 10e3/ul Normal 0.00-0.03 [facility] Comment on above: Performed By: #### C BC #### [facility] [address] [place] [address] Dr. Yaz Nur IG % 0.3 % Normal 0.0-0.5 [facility] Comment on above: Performed By: #### C BC #### [facility] [address] [place] [address] Dr. Yaz Nur LYMPH # 1.7 103/ul Normal 1.2-3.8 [facility] Comment on above: Performed By: #### C BC #### [facility] [address] [place] [address] Dr. Yaz Nur Lymphocytes/100 WBC (Bld) 27.1 % Normal 20.5-60.0 [facility] Comment on above: Performed By: #### C BC #### [facility] [address] [place] [address] Dr. Yaz Nur MANUAL DIFF REQ NO Normal [facility] Comment on above: Performed By: #### C BC #### [facility] [address] [place] [address] Dr. Yaz Nur MCH (RBC) [Entitic mass] 31.3 pg Normal 25.9-34.0 [facility] Comment on above: Performed By: #### C BC #### [facility] [address] [place] [address] Dr. Yaz Nur MCHC (RBC) [Mass/Vol] 34.3 g/dL Normal 29.9-35.2 [facility] Comment on above: Performed By: #### C BC #### [facility] [address] [address] [address] Yaz Nur MCV (RBC) [Entitic vol] 91.1 fL Normal 80.0-94.0 [facility] Comment on above: Performed By: #### C BC #### [facility] [address] [address] [address] Yaz Nur MONO # 0.6 103/ul Normal 0.3-0.8 [facility] Comment on above: Performed By: #### C BC #### [facility] [address] [place] [address] Dr. Yaz Nur Monocytes/100 WBC (Bld) 10.2 % Normal 1.7-12.0 [facility] Comment on above: Performed By: #### C BC #### [facility] [address] [place] [address] Dr. Yaz Nur NEUT # 3.2 103/ul Normal 1.4-6.5 [facility] Comment on above: Performed By: #### C BC #### [facility] [address] [place] [address] Dr. Yaz Nur Neutrophils/100 WBC (Bld) 51.8 % Normal 43.0-75.0 [facility] Comment on above: Performed By: #### C BC #### [facility] [address] [place] [address] Dr. Yaz Nur Platelet mean volume (Bld) [Entitic vol] 10.7 fL Normal 9.5-13.5 [facility] Comment on above: Performed By: #### C BC #### [facility] [address] [place] [address] Dr. Yaz Nur PLT 174 103/ul Normal 150-450 [facility] Comment on above: Performed By: #### C BC #### [facility] [address] [place] [address] Dr. Yaz Nur RBC 5.18 106/ul Normal 4.70-6.10 [facility] Comment on above: Performed By: #### C BC #### [facility] [address] [place] [address] Dr. Yaz Nur WBC 6.2 103/ul Normal 4.0-11.0 [facility] Comment on above: Performed By: #### C BC #### [facility] [address] [place] [address] Dr. Yaz Nur Covid-19 PCR ([facility])on SARS-CoV-2 (COVID-19) RNA SHIRLENE+probe Ql (Unsp spec) Not detected Normal NOT DETECTED [facility] Comment on above: Result Comment: When diagnostic testing is negative, the possibility of a false negative should be considered in the context of a patient's recent exposures and the presence of clinical signs and symptoms consistent with SARS-CoV-2. This test is not yet approved or cleared by the [place] FDA. When there are no FDA-approved or cleared tests available, and other criteria are met, FDA can make tests available under an emergency access mechanism called an Emergency Use Authorization (EUA). The EUA for this test is supported by the [place] of Health and Human Service's declaration that circumstances exist to justify the emergency use of in vitro diagnostics for the detection and/or diagnosis of the virus that causes COVID-19. This EUA will remain in effect for the duration of the COVID-19 declaration justifying emergency of IVDs, unless it is terminated or revoked by the FDA (after which the test may no longer be used). Performed By: #### C MP, BNP #### [facility] [address] [place] [address] Dr. Yaz Nur PROF 14(COMP METB)on 022 Albumin [Mass/Vol] 4.3 g/dL Normal 3.4-5.0 [facility] Comment on above: Performed By: #### B MEDICAL RESEARCH ASSISTANT, CMP, HSTROPN #### [facility] [address] [place] [address] Dr. Yaz Nur Albumin/Globulin [Mass ratio] 1.7 {ratio} Normal [facility] Comment on above: Performed By: #### B MEDICAL RESEARCH ASSISTANT, CMP, HSTROPN #### [facility] [address] [address] [address] Yaz Nur ALP [Catalytic activity/Vol] 102 U/L Normal 46-116 [facility] Comment on above: Performed By: #### B MEDICAL RESEARCH ASSISTANT, CMP, HSTROPN #### [facility] [address] [address] [address] Yaz Nur ALT [Catalytic activity/Vol] 27 U/L Normal 16-63 [facility] Comment on above: Performed By: #### B MEDICAL RESEARCH ASSISTANT, CMP, HSTROPN #### [facility] [address] [address] [address] Yaz Nur Anion gap [Moles/Vol] 10.8 mmol/L Normal [facility] Comment on above: Performed By: #### B MEDICAL RESEARCH ASSISTANT, CMP, HSTROPN #### [facility] [address] [place] [address] Dr. Yaz Nur AST [Catalytic activity/Vol] 33 U/L Normal 15-37 [facility] Comment on above: Performed By: #### B MEDICAL RESEARCH ASSISTANT, CMP, HSTROPN #### [facility] [address] [address] [address] Yaz Nur Bilirubin [Mass/Vol] 1.0 mg/dL Normal 0.2-1.0 [facility] Comment on above: Performed By: #### B MEDICAL RESEARCH ASSISTANT, CMP, HSTROPN #### [facility] [address] [address] [address] Yaz Nur Calcium [Mass/Vol] 9.0 mg/dL Normal 8.5-10.1 [facility] Comment on above: Performed By: #### B MEDICAL RESEARCH ASSISTANT, CMP, HSTROPN #### [facility] [address] [address] [address] Yaz Nur Chloride [Moles/Vol] 105 mmol/L Normal 98-107 [facility] Comment on above: Performed By: #### B MEDICAL RESEARCH ASSISTANT, CMP, HSTROPN #### [facility] [address] [address] [address] Yaz Nur CO2 [Moles/Vol] 28.5 mmol/L Normal 21.0-32.0 [facility] Comment on above: Performed By: #### B MEDICAL RESEARCH ASSISTANT, CMP, HSTROPN #### [facility] [address] [place] [address] Dr. Yaz Nur Creatinine [Mass/Vol] 0.92 mg/dL Normal 0.70-1.30 [facility] Comment on above: Performed By: #### B MEDICAL RESEARCH ASSISTANT, CMP, HSTROPN #### [facility] [address] [address] [address] Yaz Nur EGFR-AF FAROESE >60 Normal >=60 [facility] Comment on above: Performed By: #### B MEDICAL RESEARCH ASSISTANT, CMP, HSTROPN #### [facility] [address] [place] [address] Dr. Yaz Nur EGFR-NON AF FAROESE >60 Normal >=60 [facility] Comment on above: Performed By: #### B MEDICAL RESEARCH ASSISTANT, CMP, HSTROPN #### [facility] [address] [place] [address] Dr. Yaz Nur Globulin (S) [Mass/Vol] 2.6 g/dL Normal [facility] Comment on above: Performed By: #### B MEDICAL RESEARCH ASSISTANT, CMP, HSTROPN #### [facility] [address] [place] [address] Dr. Yaz Nur Glucose [Mass/Vol] 108 mg/dL Critically high 74-106 [facility] Comment on above: Performed By: #### B MEDICAL RESEARCH ASSISTANT, CMP, HSTROPN #### [facility] [address] [place] [address] Dr. Yaz Nur Potassium [Moles/Vol] 4.3 mmol/L Normal 3.5-5.1 [facility] Comment on above: Result Comment: spec imen hemolysed Performed By: #### B MEDICAL RESEARCH ASSISTANT, CMP, HSTROPN #### [facility] [address] [place] [address] Dr. Yaz Nur Protein [Mass/Vol] 6.9 g/dL Normal 6.4-8.2 [facility] Comment on above: Performed By: #### B MEDICAL RESEARCH ASSISTANT, CMP, HSTROPN #### [facility] [address] [place] [address] Dr. Yaz Nur Sodium [Moles/Vol] 140 mmol/L Normal 136-145 [facility] Comment on above: Performed By: #### B MEDICAL RESEARCH ASSISTANT, CMP, HSTROPN #### [facility] [address] [place] [address] Dr. Yaz Nur Urea nitrogen [Mass/Vol] 16.0 mg/dL Normal 7.0-18.0 [facility] Comment on above: Performed By: #### B MEDICAL RESEARCH ASSISTANT, CMP, HSTROPN #### [facility] [address] [place] [address] Dr. Yaz Nur Urea nitrogen/Creatinine [Mass ratio] 17.4 mg/mg Normal [facility] Comment on above: Performed By: #### B MEDICAL RESEARCH ASSISTANT, CMP, HSTROPN #### [facility] [address] [place] [address] Dr. Yaz Nur PROTIMEon 08-17-2022 INR Coag (PPP) [Relative time] 1.03 {INR} Normal [facility] Comment on above: Performed By: #### P T, PTT #### [facility] [address] [place] [address] Dr. Yaz Nur INR GUIDELINES SEE BELOW Normal [facility] Comment on above: Result Comment: DAMON RED INR: 2.0 - 3.0 CONDITIONS NOT LISTED BELOW 2.5 - 3.5 FOR PROSTHETIC HEART VALVE REPLACEMENT 2.5 - 3.5 RECURRENT THROMBOSIS Performed By: #### P T, PTT #### [facility] [address] [place] [address] Dr. Yaz Nur PT Coag (PPP) [Time] 11.1 s Normal 9.0-11.6 [facility] Comment on above: Performed By: #### P T, PTT #### [facility] [address] [place] [address] Dr. Yaz Nur PTTon 08-17-2022 aPTT Coag (Bld) [Time] 27.7 s Normal 22.3-36.2 [facility] Comment on above: Performed By: #### P T, PTT #### [facility] [address] [place], [place] [address] Dr. Yaz Nur TROPONIN, HIGH SENSITIVITYon 08-17-2022 HSTROP 7.5 pg/mL Normal 4.0-76.1 [facility] Comment on above: Result Comment: CUT- OFF POINTS HAVE BEEN ESTABLISHED BASED ON THE FOURTH UNIVERSAL DEFINITIONS OF MYOCARDIAL INFARCTION. THE UPPER REFERENCE LIMIT (URL) OF TROPONIN, DEFINED THE 99TH PERCENTILE OF cTnI DISTRIBUTION IN A REFERENCE POPULATION, HAS BEEN CONFIRMED THE DECISION THRESHOLD FOR CA DIAGNOSIS. Performed By: #### B MEDICAL RESEARCH ASSISTANT, CMP, HSTROPN #### [facility] [address] [place], [place] [address] Dr. Yaz Nur XR CHEST 1 Von 08-17-2022 XR CHEST 1 V CXR HISTORY: Complaining of left shoulder pain after vaccine booster 2 weeks ago. COMPARISON: None. TECHNIQUE: 1 view chest submitted for review. FINDINGS: The lungs are adequately expanded without evidence of acute infiltrate or effusion. The cardiac silhouette measures within normal. Pulmonary vascularity is unremarkable. Osseous structures are within normal limits for age although the shoulders are incompletely imaged. IMPRESSION: No plain film evidence for acute cardiopulmonary disease. Electronically authenticated by: CEFERINO VALDOVINOS Date: 2022-08-17 17:22 Normal [facility] Encounters Encounter Date Encounter Type Care Provider Facility Start: 09-12-2022 End: 09-13-[address] STEPHANE SMALLS Facility:[facility] Start: 09-09-2022 End: 09-10-[address] STEPHANE SMALLS Facility:[facility] Start: 08-19-2022 End: 08-19-[address] STEPHANE SMALLS Facility:[facility] Start: 08-17-2022 End: 08-18-[address] STEPHANE SMALLS Facility:[facility] Start: 02-08-2018 End: 02-09-2018 Ambulatory DEFAULT PHYSICIAN Facility:[facility] Payers Date Payer Category Payer Medicare [id number] 1940 Unknown [id number] 1940 Unknown [id number] 1940 Unknown [id number] 1940 Unknown [id number] Unknown Summary Purpose Family History No Family History Records FoundNo Family History Records Found Advance Directives No Advanced Directives Records FoundNo Advanced Directives Records Found Additional Source Comments (unrecognized sect ion and content) No Status Records FoundNo Status Records Found INFORMATION SOURCE (unrecogn ized section and content) DATE CREATED AUTHOR 05/02/2018 [facility] [place] [facility] DATE CREATED AUTHOR AUTHOR'S ORGANIZ ATION 09/16/2022 [facility] FOR RECORDS PERTAINING TO PATIENTS WHO ARE OR HAVE BEEN ENROLLED IN A CHEMICAL DEPENDENCY/SUBSTANCEABUSE PROGRAM, SOME INFORMATION MAY BE OMITTED. This clinical summary was aggregated from multiple sources. Caution should be exercised in using it in the provision of clinical care. This summary normalizes information from multiple sources, and as a consequence, information in this document may materially change the coding, format and clinical context of patient data. In addition, data may be omitted in some cases. CLINICAL DECISIONS SHOULD BE BASED ON THE PRIMARY CLINICAL RECORDS. [employer] provides no warranty or guarantee of the accuracy or completeness of information in this document.
--- NOTE | 2024-05-09 22:43 | ECG_ITS ---
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
--- NOTE | 2024-05-09 22:53 | XR_ITS ---
[facility] [id number] Patient Name: ESPERANZA POLANCO MRN: [id number] date: 1940 Sex: M Assigned Patient Location: ER Current Patient Location: ER Accession/Order Number: [id number] Exam Date: 05/09/2024 23:10 Report Date: 05/10/2024 00:09 At the request of: KENA ARMIJO Procedure: XR chest 1V EXAMINATION:XR chest 1V INDICATION:chest pain COMPARISON:08/17/2022 TECHNIQUE:A single frontal view of the chest is submitted. FINDINGS: Cardiac silhouette is enlarged. The pulmonary vascularity is within normal limits. No acute airspace disease is present in the lungs. There is no costophrenic angle blunting. XR/XR chest 1V IMPRESSION: No definitive acute cardiopulmonary process in the chest. Electronically authenticated by: SAMMY HERMAN Date: 05/10/2024 00:09
--- NOTE | 2024-05-09 22:54 | ED_ITS ---
HPI - Chest Pain General Chief Complaint: Chest Pain Stated Complaint: Chest Pain Time Seen by Provider: 05/09/24 22:44 Source: patient Mode of arrival: walk-in Limitations: no limitations History of Present Illness HPI narrative: past history of MS. presents complaining of chest pain that started about one hour ago. pain radiated to left shoulder. Pain ongoing for about an hour but has now decreased to a pressure discomfort. no dyspnea , nausea or diaphoresis. He only takes ASA daily Related Data Allergies Allergy/AdvReac Type Severity Reaction Status Date / Time No Known Drug Allergies Allergy Verified 05/09/24 22:42 Review of Systems ROS Status of ROS 10 or more systems reviewed and unremark able except as noted in history and below Exam Constitutional Vital Signs, click to edit/add: Last Vital Signs Temp 98 F 05/09/24 22:36 Pulse 69 05/10/24 00:40 Resp 17 05/10/24 00:40 BP 125/86 05/10/24 00:41 Pulse Ox 93 L 05/10/24 00:20 O2 Del Method Room Air 05/09/24 22:36 Common normals: no apparent distress, average body habitus, oriented x3, no limitations, healthy appearing, alert and well nourished [facility] Common normals: normocephalic and head/scalp atraumatic Eye Common normals: PERRL, EOMs intact bilaterally and conjunctivae normal Respiratory Common normals: normal respiratory effort, no retractions, no use of accessory muscles and clear to auscultation bilaterally Cardio Common normals: regular rate, regular rhythm, S1 normal heart sound and S2 normal heart sound GI Common normals: Normal to inspection, nondistended, normoactive bowel sounds present, soft to palpation and non-tender Extremity Common normals: normal to inspection and full ROM Neuro Common normals: oriented x3, CN's II-XII intact bilaterally, moves all extremities and no focal motor deficits Psych Appearance: grossly normal Course Vital Signs Vital signs: Vital Signs Pulse Rate 69 05/09/24 22:33 Respiratory Rate 15 05/09/24 22:33 Temperature 98 F 05/09/24 22:36 Pulse Rate 69 05/10/24 00:40 Respiratory Rate 17 05/10/24 00:40 Blood Pressure 125/86 05/10/24 00:41 Pulse Oximetry 93 L 05/10/24 00:20 Oxygen Delivery Method Room Air 05/09/24 22:36 MDM - Chest Pain MDM Narrative Medical decision making narrative: presents with chest pain radiating to the left arm. Decreased by the time he arrived here. Still has pressure sensation in his chest that resolved after nitro SL. EKG with incomplete RBBB NSR. Discussed with hospitalist and patient accepted for admission. neg troponin Lab Data Labs: Lab Results 05/09/24 Range/Units 23:23 WBC 6.4 (4.0-11.0) 10^3/uL RBC 5.40 (4.70-6.10) 10^6/uL Hgb 16.2 (14.0-18.0) g/dL Hct 49.2 (42.0-54.0) % MCV 91.1 (80.0-94.0) fL MCH 30.0 (25.9-34.0) pg MCHC 32.9 (29.9-35.2) g/dL RDW 13.2 (11.0-15.0) % Plt Count 178 (150-450) 10^3/uL MPV 10.0 (9.5-13.5) fL Neut % (Auto) 68.9 (43.0-75.0) % Lymph % (Auto) 16.6 L (20.5-60.0) % [place] % (Auto) 8.8 (1.7-12.0) % Eos % (Auto) 4.4 (0.9-7.0) % Baso % (Auto) 0.8 (0.2-2.0) % Neut # (Auto) 4.4 (1.4-6.5) 10^3/uL Lymph # (Auto) 1.1 L (1.2-3.8) 10^3/uL [place] # (Auto) 0.6 (0.3-0.8) 10^3/uL Eos # (Auto) 0.3 (0.0-0.7) 10^3/uL Baso # (Auto) 0.1 (0.0-0.1) 10^3/uL Abs Immat Gran (auto) 0.03 (0.00-0.03) 10^3/uL Imm/Tot Granulo (auto) 0.5 (0.0-0.5) % Sodium 143 (136-145) mmol/L Potassium 3.9 (3.5-5.1) mmol/L Chloride 106 (98-107) mmol/L Carbon Dioxide 28.0 (21.0-32.0) mmol/L Anion Gap 12.9 BUN 16.0 (7.0-18.0) mg/dL Creatinine 1.24 (0.70-1.30) mg/dL Est GFR ( Amer) >60 (>=60) Est GFR (Non-Af Amer) 56 L (>=60) BUN/Creatinine Ratio 12.9 Glucose 126 H (74-106) mg/dL Calcium 9.0 (8.5-10.1) mg/dL Troponin I High Sens 11.8 (4.0-76.1) pg/mL NT-Pro-B Natriuret Pep 190.0 (<=1800.0) pg/mL Discharge Plan Discharge Chief Complaint: Chest Pain Clinical Impression: Chest pain, rule out acute myocardial infarction Patient Disposition: Admitted as Observation Print Language: Grenadian Referrals: Wicho Dominguez MD [Primary Care Provider] - 1 week
[2024-05-09 23:29] LABS: Basophils Absolute Auto 0.1 10^3/uL (0.0-0.1); Basophils Percent Auto 0.8 % (0.2-2.0); Eosinophils Absolute Auto 0.3 10^3/uL (0.0-0.7); Eosinophils Percent Auto 4.4 % (0.9-7.0); Hematocrit 49.2 % (42.0-54.0); Hemoglobin 16.2 g/dL (14.0-18.0); Immature Granulocytes Abs Auto 0.03 10^3/uL (0.00-0.03); Immature Granulocytes Pct Auto 0.5 % (0.0-0.5); Lymphocytes Absolute Auto 1.1 10^3/uL (1.2-3.8); Lymphocytes Percent Auto 16.6 % (20.5-60.0); Mean Corpuscular HGB Conc 32.9 g/dL (29.9-35.2); Mean Corpuscular Volume 91.1 fL (80.0-94.0); Monocytes Absolute Auto 0.6 10^3/uL (0.3-0.8); Monocytes Percent Auto 8.8 % (1.7-12.0); Neutrophils Absolute Auto 4.4 10^3/uL (1.4-6.5); Neutrophils Percent Auto 68.9 % (43.0-75.0); Platelet Count 178 10^3/uL (150-450); Red Cell Distribution Width 13.2 % (11.0-15.0); White Blood Count 6.4 10^3/uL (4.0-11.0)
[2024-05-09] MEDS: NITROGLYCERIN 0.4 MG BOTTLE 0.400000000000000022 MG PO (23:33)
[2024-05-09 23:52] LABS: Anion Gap 12.9; BUN Creatinine Ratio 12.9; Chloride 106 mmol/L (98-107); Estimated GFR (African America >60 (>=60); Estimated GFR (Non-African Ame 56 (>=60); Glucose 126 mg/dL (74-106); Potassium 3.9 mmol/L (3.5-5.1); Sodium 143 mmol/L (136-145); Troponin I High Sensitivity 11.8 pg/mL (4.0-76.1)
[2024-05-10] VITALS (27 sets, daily range): BP systolic 123–159; BP diastolic 82–100; PULSE 49–107; O2SAT 93–97; BMI 28.5
[2024-05-10 01:02] LABS: Troponin I High Sensitivity 11.3 pg/mL (4.0-76.1)
--- OUTSIDE RECORDS SUMMARY | 2024-05-10 01:49 | XMS_ITS ---
Patient Summarization (C-CDA 2.1 CCD) Created on: May 10, 2024 SHERRI GERMAN, ESPERANZA Jacobs : 1940 Sex: Male Author Organization Sample organization Care Team Providers Care Sound Technician Supervisor Name Role Phone PHYSICIAN, DEFAULT Unavailable Unavailable PHYSICIAN, DEFAULT Unavailable Unavailable SERINA, DR CALDERÓN Primary Care Unavailable HAY, DR HAMMER Admitting Unavailable HAY, DR HAMMER Attending Unavailable HOY, DR CALDERÓN Admitting Unavailable HOY, DR CALDERÓN Attending Unavailable HOY, DR CALDERÓN Primary Care Unavailable HOY, DR CALDERÓN Consulting Unavailable ZIEBER, DR BERNIE Jacobs Consulting Unavailable HOY, DR CALDERÓN Admitting Unavailable HOY, DR CALDERÓN Attending Unavailable HOY, DR CALDERÓN Primary Care Unavailable HOY, DR CALDERÓN Consulting Unavailable HOY, DR CALDERÓN Primary Care Unavailable HOY, DR CALDERÓN Admitting Unavailable HOY, DR CALDERÓN Attending Unavailable HOY, DR CALDERÓN Consulting Unavailable HOWARD QIU Consulting Unavailable TATO, KAIDEN Consulting Unavailable BONIFACIO, CEFERINO Consulting Unavailable Allergies Allergy Classification Reported Allergen(s) Allergy Type Date of Onset Reaction(s) Facility (1 source) Colestipol Drug Allergy [facility] Repository Encounters Encounter Date Encounter Type Care Provider Facility Start: 09-12-2022 End: 09-13-[address] STEPHANE SMALLS Facility:[facility] Start: 09-09-2022 End: 09-10-[address] STEPHANE SMALLS Facility:[facility] Start: 08-19-2022 End: 08-19-[address] STEPHANE SMALLS Facility:[facility] Start: 08-17-2022 End: 08-18-[address] STEPHANE SMALLS Facility:[facility] Start: 02-08-2018 End: 02-09-2018 Ambulatory DEFAULT PHYSICIAN Facility:[facility] Payers Date Payer Category Payer Medicare [id number] 1940 Unknown [id number] [id number] [id number] 1940 Unknown [id number] [id number] [id number] 1940 Unknown [id number] [id number] [id number] 1940 Unknown [id number] [id number] [id number] Unknown Problems Problem Classification Problem Date Documented Date Episodic/Chronic Calculus of urinary tract (2 sources) Calculus of kidney; Translations: [Personal history of urinary calculi] Onset: 2 Episodic Cardiac dysrhythmias (1 source) Bradycardia, unspecified; Translations: [BRADYCARDIA UNSPECIFIED] Onset: 2 Episodic 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; Translations: [Old [...] 2 Episodic Other aftercare (1 source) Other fdc (current) drug therapy; Translations: [OTH SENIOR LIVING CURRENT DRUG THERAPY] Onset: 2 Episodic Other aftercare (1 source) halfway (current) use of aspirin; Translations: [SENIOR LIVING CURRENT USE OF ASPIRIN] Onset: 2 Episodic [...] by: BERNIE COLINDRES Date: 2022-09-12 10:13 Normal [facility] PSA, FREE AND TOTAL RATIOon 09-10-2022 % Free PSA 44.1 % Normal [facility] Comment on above: Result Comment: The table [...] Performed By: #### C MP, BNP #### [facility] [address] [place] [address] Dr. Yaz Nur Prostate specific Ag [Mass/Vol] 2.7 ng/mL Normal 0.0-4.0 [facility] Comment on above: Result Comment: Cooper MAY methodology. . According to the [place] [employer], Serum PSA should decrease and [...] Performed By: #### C MP, BNP #### [facility] [address] [place] [address] Dr. Yaz Nur PSA, Free 1.19 ng/mL Normal N/A [facility] Comment on above: Result Comment: Cooper MAY methodology. Performed By: #### C MP, BNP #### [facility] [address] [place] [address] Dr. Yaz Nur CBC AUTO DIFFon 09-09-2022 BASO # 0.1 103/ul Normal 0.0-0.1 [facility] Comment on above: Performed By: #### C MP, BNP #### [facility] [address] [place] [address] Dr. Yaz Nur Basophils/100 WBC (Bld) 1.0 % Normal 0.2-2.0 [facility] Comment on above: Performed By: #### C MP, BNP #### [facility] [address] [place] [address] Dr. Yaz Nur EO # 0.5 103/ul Normal 0.0-0.7 [facility] Comment on above: Performed By: #### C MP, BNP #### [facility] [address] [place] [address] Dr. Yaz Nur Eosinophils/100 WBC (Bld) 8.8 % Critically high 0.9-7.0 [facility] Comment on above: Performed By: #### C MP, BNP #### [facility] [address] [place] [address] Dr. Yaz Nur Erythrocyte distribution width (RBC) [Ratio] 13.4 % Normal 11.0-15.0 [facility] Comment on above: Performed By: #### C MP, BNP #### [facility] [address] [place] [address] Dr. Yaz Nur Hematocrit (Bld) [Volume fraction] 46.8 % Normal 42.0-54.0 [facility] Comment on above: Performed By: #### C MP, BNP #### [facility] [address] [place] [address] Dr. Yaz Nur Hemoglobin (Bld) [Mass/Vol] 16.2 g/dL Normal 14.0-18.0 [facility] Comment on above: Performed By: #### C MP, BNP #### [facility] [address] [place] [address] Dr. Yaz Nur IG # 0.01 10e3/ul Normal 0.00-0.03 [facility] Comment on above: Performed By: #### C MP, BNP #### [facility] [address] [place] [address] Dr. Yaz Nur IG % 0.2 % Normal 0.0-0.5 [facility] Comment on above: Performed By: #### C MP, BNP #### [facility] [address] [place] [address] Dr. Yaz Nur LYMPH # 1.5 103/ul Normal 1.2-3.8 [facility] Comment on above: Performed By: #### C MP, BNP #### [facility] [address] [place] [address] Dr. Yaz Nur Lymphocytes/100 WBC (Bld) 29.2 % Normal 20.5-60.0 [facility] Comment on above: Performed By: #### C MP, BNP #### [facility] [address] [place] [address] Dr. Yaz Nur MANUAL DIFF REQ NO Normal [facility] [place] Comment on above: Performed By: #### C MP, BNP #### [facility] [address] [place] [address] Dr. Yaz Nur MCH (RBC) [Entitic mass] 31.4 pg Normal 25.9-34.0 [facility] Comment on above: Performed By: #### C MP, BNP #### [facility] [address] [place] [address] Dr. Yaz Nur MCHC (RBC) [Mass/Vol] 34.6 g/dL Normal 29.9-35.2 [facility] Comment on above: Performed By: #### C MP, BNP #### [facility] [address] [place] [address] Dr. Yaz Nur MCV (RBC) [Entitic vol] 90.7 fL Normal 80.0-94.0 [facility] Comment on above: Performed By: #### C MP, BNP #### [facility] [address] [place] [address] Dr. Yaz Nur MONO # 0.6 103/ul Normal 0.3-0.8 [facility] Comment on above: Performed By: #### C MP, BNP #### [facility] [address] [place] [address] Dr. Yaz Nur Monocytes/100 WBC (Bld) 11.2 % Normal 1.7-12.0 [facility] Comment on above: Performed By: #### C MP, BNP #### [facility] [address] [place] [address] Dr. Yaz Nur NEUT # 2.5 103/ul Normal 1.4-6.5 [facility] Comment on above: Performed By: #### C MP, BNP #### [facility] [address] [place] [address] Dr. Yaz Nur Neutrophils/100 WBC (Bld) 49.6 % Normal 43.0-75.0 [facility] Comment on above: Performed By: #### C MP, BNP #### [facility] [address] [address] [address] Yaz Nur Platelet mean volume (Bld) [Entitic vol] 9.9 fL Normal 9.5-13.5 [facility] Comment on above: Performed By: #### C MP, BNP #### [facility] [address] [address] [address] Yaz Nur PLT 157 103/ul Normal 150-450 [facility] Comment on above: Performed By: #### C MP, BNP #### [facility] [address] [place] [address] Dr. Yaz Nur RBC 5.16 106/ul Normal 4.70-6.10 [facility] Comment on above: Performed By: #### C MP, BNP #### [facility] [address] [place] [address] Dr. Yaz Nur WBC 5.1 103/ul Normal 4.0-11.0 [facility] Comment on above: Performed By: #### C MP, BNP #### [facility] [address] [place] [address] Dr. Yaz Nur CULTURE URINEon 09-09-2022 CULTURE URINE Culture Observations : LIGHT GROWTH OF MIXED SKIN COCO. NO POTENTIAL PATHOGENS SEEN. Normal [facility] Comment on above: Performed By: #### C MP, BNP #### [facility] [address] [place] [address] Dr. Yaz Nur PROTIMEon 09-09-2022 INR Coag (PPP) [Relative time] 1.06 {INR} Normal [facility] Comment on above: Performed By: #### C MP, BNP #### [facility] [address] [place] [address] Dr. Yaz Nur INR GUIDELINES SEE BELOW Normal [facility] Comment on above: Result Comment: DAMON RED INR: 2.0 - 3.0 CONDITIONS NOT LISTED BELOW 2.5 - 3.5 FOR PROSTHETIC HEART VALVE REPLACEMENT 2.5 - 3.5 RECURRENT THROMBOSIS Performed By: #### C MP, BNP #### [facility] [address] [place] [address] Dr. Yaz Nur PT Coag (PPP) [Time] 11.4 s Normal 9.0-11.6 [facility] Comment on above: Performed By: #### C MP, BNP #### [facility] [address] [place] [address] Dr. Yaz Nur PTTon 09-09-2022 aPTT Coag (Bld) [Time] 30.0 s Normal 22.3-36.2 [facility] Comment on above: Performed By: #### C MP, BNP #### [facility] [address] [place] [address] Dr. Yaz Nur UA RANDOM W/MICROSCOPICon BACTERIA NONE SEEN Normal NONE SEEN [facility] Comment on above: Performed By: #### C MP, BNP #### [facility] [address] [place] [address] Dr. Yaz Nur Bilirubin Ql (U) Negative Normal NEGATIVE [facility] Comment on above: Performed By: #### C MP, BNP #### [facility] [address] [place] [address] Dr. Yaz Nur CAST NONE SEEN Normal NONE SEEN [facility] Comment on above: Performed By: #### C MP, BNP #### [facility] [address] [place] [address] Dr. Yaz Nur Clarity (U) CLEAR Normal CLEAR [facility] Comment on above: Performed By: #### C MP, BNP #### [facility] [address] [place] [address] Dr. Yaz Nur Color (U) YELLOW Normal YELLOW [facility] Comment on above: Performed By: #### C MP, BNP #### [facility] [address] [place] [address] Dr. Yaz Nur Crystals LM Nom (Urine sed) NONE SEEN Normal NONE SEEN [facility] Comment on above: Performed By: #### C MP, BNP #### [facility] [address] [place] [address] Dr. Yaz Nur Epithelial cells LM Ql (Urine sed) RARE Normal NONE SEEN /RARE [facility] Comment on above: Performed By: #### C MP, BNP #### [facility] [address] [address] [address] Yaz Nur Glucose Ql (U) Negative Normal NEGATIVE [facility] Comment on above: Performed By: #### C MP, BNP #### [facility] [address] [address] [address] Yaz Nur Hemoglobin Ql (U) Negative Normal NEGATIVE [facility] Comment on above: Performed By: #### C MP, BNP #### [facility] [address] [address] [address] Yaz Nur Ketones Ql (U) Negative Normal NEGATIVE [facility] Comment on above: Performed By: #### C MP, BNP #### [facility] [address] [place] [address] Dr. Yaz Nur LEUKOCYTES Negative Normal NEGATIVE [facility] Comment on above: Performed By: #### C MP, BNP #### [facility] [address] [place] [address] Dr. Yaz Nur MUCOUS NONE SEEN Normal NONE SEEN [facility] Comment on above: Performed By: #### C MP, BNP #### [facility] [address] [place] [address] Dr. Yaz Nur Nitrite Ql (U) Negative Normal NEGATIVE [facility] Comment on above: Performed By: #### C MP, BNP #### [facility] [address] [place] [address] Dr. Yaz Nur pH (U) 5.5 [pH] Normal 5-9 [facility] Comment on above: Performed By: #### C MP, BNP #### [facility] [address] [place] [address] Dr. Yaz Nur RBC 0-2 Normal 0-2 [facility] Comment on above: Performed By: #### C MP, BNP #### [facility] [address] [place] [address] Dr. Yaz Nur SPEC GRAVITY >=1.030 Abnormal 1.005-<=1.025 [facility] [place] Comment on above: Performed By: #### C MP, BNP #### [facility] [address] [place] [address] Dr. Yaz Nur UA PROTEIN Negative Normal NEGATIVE/ TRACE [facility] Comment on above: Performed By: #### C MP, BNP #### [facility] [address] [place] [address] Dr. Yaz Nur Urobilinogen Qn (U) 0.2 {Joseph'U}/dL Normal 0.2 - 1. 0 [facility] Comment on above: Performed By: #### C MP, BNP #### [facility] [address] [place] [address] Dr. Yaz Nur WBC 0-2 Abnormal NONE SEEN [facility] Comment on above: Performed By: #### C MP, BNP #### [facility] [address] [place] [address] Dr. Yaz Nur BNPon 08-18-2022 Natriuretic peptide B (Bld) [Mass/Vol] 228.0 pg/mL Normal <=1,800.0 [facility] Comment on above: Performed By: #### C MP, BNP #### [facility] [address] [place] [address] Dr. Yaz Nur CARDIAC KANDIS 3-6on 2 CK [Catalytic activity/Vol] 165 U/L Normal 39-308 [facility] Comment on above: Performed By: #### C MREP #### [facility] [address] [place] [address] Dr. Yaz Nur CK.MB [Mass/Vol] 2.85 ng/mL Normal <=3.60 [facility] Comment on above: Performed By: #### C MREP #### [facility] [address] [place] [address] Dr. Yaz Nur HSTROP 6.7 pg/mL Normal 4.0-76.1 [facility] Comment on above: Result Comment: CUT- OFF POINTS HAVE BEEN ESTABLISHED BASED ON THE FOURTH UNIVERSAL DEFINITIONS OF MYOCARDIAL INFARCTION. THE UPPER REFERENCE LIMIT (URL) OF TROPONIN, DEFINED THE 99TH PERCENTILE OF cTnI DISTRIBUTION IN A REFERENCE POPULATION, HAS BEEN CONFIRMED THE DECISION THRESHOLD FOR HI DIAGNOSIS. Performed By: #### C MREP #### [facility] [address] [place] [address] Dr. Yaz Nur CBC AUTO DIFFon 08-18-2022 BASO # 0.1 103/ul Normal 0.0-0.1 [facility] Comment on above: Performed By: #### C BC #### [facility] [address] [place] [address] Dr. Yaz Nur Basophils/100 WBC (Bld) 1.3 % Normal 0.2-2.0 [facility] Comment on above: Performed By: #### C BC #### [facility] [address] [place] [address] Dr. Yaz Nur EO # 0.6 103/ul Normal 0.0-0.7 [facility] Comment on above: Performed By: #### C BC #### [facility] [address] [place] [address] Dr. Yaz Nur Eosinophils/100 WBC (Bld) 9.9 % Critically high 0.9-7.0 [facility] Comment on above: Performed By: #### C BC #### [facility] [address] [place] [address] Dr. Yaz Nur Erythrocyte distribution width (RBC) [Ratio] 13.2 % Normal 11.0-15.0 [facility] Comment on above: Performed By: #### C BC #### [facility] [address] [place] [address] Dr. Yaz Nur Hematocrit (Bld) [Volume fraction] 47.0 % Normal 42.0-54.0 [facility] Comment on above: Performed By: #### C BC #### [facility] [address] [place] [address] Dr. Yaz Nur Hemoglobin (Bld) [Mass/Vol] 15.8 g/dL Normal 14.0-18.0 [facility] Comment on above: Performed By: #### C BC #### [facility] [address] [place] [address] Dr. Yaz Nur IG # 0.02 10e3/ul Normal 0.00-0.03 [facility] Comment on above: Performed By: #### C BC #### [facility] [address] [place] [address] Dr. Yaz Nur IG % 0.3 % Normal 0.0-0.5 [facility] Comment on above: Performed By: #### C BC #### [facility] [address] [place] [address] Dr. Yaz Nur LYMPH # 1.8 103/ul Normal 1.2-3.8 [facility] Comment on above: Performed By: #### C BC #### [facility] [address] [place] [address] Dr. Yaz Nur Lymphocytes/100 WBC (Bld) 28.1 % Normal 20.5-60.0 [facility] Comment on above: Performed By: #### C BC #### [facility] [address] [place] [address] Dr. Yaz Nur MANUAL DIFF REQ NO Normal [facility] [place] Comment on above: Performed By: #### C BC #### [facility] [address] [place] [address] Dr. Yaz Nur MCH (RBC) [Entitic mass] 31.3 pg Normal 25.9-34.0 [facility] Comment on above: Performed By: #### C BC #### [facility] [address] [place] [address] Dr. Yaz Nur MCHC (RBC) [Mass/Vol] 33.6 g/dL Normal 29.9-35.2 [facility] Comment on above: Performed By: #### C BC #### [facility] [address] [place] [address] Dr. Yaz Nur MCV (RBC) [Entitic vol] 93.1 fL Normal 80.0-94.0 [facility] Comment on above: Performed By: #### C BC #### [facility] [address] [place] [address] Dr. Yaz Nur MONO # 0.6 103/ul Normal 0.3-0.8 [facility] Comment on above: Performed By: #### C BC #### [facility] [address] [address] [address] Yaz Nur Monocytes/100 WBC (Bld) 9.7 % Normal 1.7-12.0 [facility] Comment on above: Performed By: #### C BC #### [facility] [address] [address] [address] Yaz Nur NEUT # 3.2 103/ul Normal 1.4-6.5 [facility] Comment on above: Performed By: #### C BC #### [facility] [address] [address] [address] Yaz Nur Neutrophils/100 WBC (Bld) 50.7 % Normal 43.0-75.0 [facility] Comment on above: Performed By: #### C BC #### [facility] [address] [place] [address] Dr. Yaz Nur Platelet mean volume (Bld) [Entitic vol] 9.9 fL Normal 9.5-13.5 [facility] Comment on above: Performed By: #### C BC #### [facility] [address] [address] [address] Yaz Nur PLT 144 103/ul Critically low 150-450 [facility] Comment on above: Performed By: #### C BC #### [facility] [address] [place] [address] Dr. Yaz Nur RBC 5.05 106/ul Normal 4.70-6.10 [facility] Comment on above: Performed By: #### C BC #### [facility] [address] [place] [address] Dr. Yaz Nur WBC 6.4 103/ul Normal 4.0-11.0 [facility] Comment on above: Performed By: #### C BC #### [facility] [address] [place] [address] Dr. Yaz Nur ECHOCARDIO M/2D COMPLETEon 1 ECHOCARDIO M/2D COMPLETE Patient: ESPERANZA POLANCO Exam Date: 08/18/2022 : 1940 Gender:M Ordering : DR STEPHANE SMALLS . Admission #: [id number] Family : Order #: [id number] CLICK HERE TO VIEW EXAM ECHOCARDIOGRAM REPORT [...] Jaimes M.D. on 08/22/2022 at 07:53 Normal [facility] PROF 14(COMP METB)on 022 Albumin [Mass/Vol] 3.9 g/dL Normal 3.4-5.0 [facility] Comment on above: Performed By: #### C MP, BNP #### [facility] [address] [place] [address] Dr. Yaz Nur Albumin/Globulin [Mass ratio] 1.3 {ratio} Normal [facility] Comment on above: Performed By: #### C MP, BNP #### [facility] [address] [place] [address] Dr. Yaz Nur ALP [Catalytic activity/Vol] 94 U/L Normal 46-116 [facility] Comment on above: Performed By: #### C MP, BNP #### [facility] [address] [place] [address] Dr. Yaz Nur ALT [Catalytic activity/Vol] 21 U/L Normal 16-63 [facility] Comment on above: Performed By: #### C MP, BNP #### [facility] [address] [place] [address] Dr. Yaz Nur Anion gap [Moles/Vol] 8.8 mmol/L Normal [facility] Comment on above: Performed By: #### C MP, BNP #### [facility] [address] [place] [address] Dr. Yaz Nur AST [Catalytic activity/Vol] 16 U/L Normal 15-37 [facility] Comment on above: Performed By: #### C MP, BNP #### [facility] [address] [place] [address] Dr. Yaz Nur Bilirubin [Mass/Vol] 1.0 mg/dL Normal 0.2-1.0 [facility] Comment on above: Performed By: #### C MP, BNP #### [facility] [address] [place] [address] Dr. Yaz Nur Calcium [Mass/Vol] 8.6 mg/dL Normal 8.5-10.1 [facility] Comment on above: Performed By: #### C MP, BNP #### [facility] [address] [place] [address] Dr. Yaz Nur Chloride [Moles/Vol] 106 mmol/L Normal 98-107 [facility] Comment on above: Performed By: #### C MP, BNP #### [facility] [address] [place] [address] Dr. Yaz Nur CO2 [Moles/Vol] 28.5 mmol/L Normal 21.0-32.0 [facility] Comment on above: Performed By: #### C MP, BNP #### [facility] [address] [place] [address] Dr. Yaz Nur Creatinine [Mass/Vol] 1.14 mg/dL Normal 0.70-1.30 [facility] Comment on above: Performed By: #### C MP, BNP #### [facility] [address] [place] [address] Dr. Yaz Nur EGFR-AF LIBYAN >60 Normal >=60 [facility] Comment on above: Performed By: #### C MP, BNP #### [facility] [address] [place] [address] Dr. Yaz Nur EGFR-NON AF LIBYAN >60 Normal >=60 [facility] Comment on above: Performed By: #### C MP, BNP #### [facility] [address] [place] [address] Dr. Yaz Nur Globulin (S) [Mass/Vol] 2.9 g/dL Normal [facility] Comment on above: Performed By: #### C MP, BNP #### [facility] [address] [place] [address] Dr. Yaz Nur Glucose [Mass/Vol] 82 mg/dL Normal 74-106 [facility] Comment on above: Performed By: #### C MP, BNP #### [facility] [address] [place] [address] Dr. Yaz Nur Potassium [Moles/Vol] 4.3 mmol/L Normal 3.5-5.1 [facility] Comment on above: Performed By: #### C MP, BNP #### [facility] [address] [place] [address] Dr. Yaz Nur Protein [Mass/Vol] 6.8 g/dL Normal 6.4-8.2 [facility] Comment on above: Performed By: #### C MP, BNP #### [facility] [address] [place] [address] Dr. Yaz Nur Sodium [Moles/Vol] 139 mmol/L Normal 136-145 [facility] Comment on above: Performed By: #### C MP, BNP #### [facility] [address] [place] [address] Dr. Yaz Nur Urea nitrogen [Mass/Vol] 15.0 mg/dL Normal 7.0-18.0 [facility] Comment on above: Performed By: #### C MP, BNP #### [facility] [address] [place] [address] Dr. Yaz Nur Urea nitrogen/Creatinine [Mass ratio] 13.2 mg/mg Normal [facility] Comment on above: Performed By: #### C MP, BNP #### [facility] [address] [place] [address] Dr. Yaz Nur BNPon 08-17-2022 Natriuretic peptide B (Bld) [Mass/Vol] 274.0 pg/mL Normal <=1,800.0 [facility] Comment on above: Performed By: #### B PAPER PATTERN FOLDER, CMP, HSTROPN #### [facility] [address] [place] [address] Dr. Yaz Nur CARDIAC KANDIS 3-6on 2 CK [Catalytic activity/Vol] 190 U/L Normal 39-308 [facility] Comment on above: Performed By: #### C MP, BNP #### [facility] [address] [place] [address] Dr. Yaz Nur CK.MB [Mass/Vol] 3.22 ng/mL Normal <=3.60 [facility] Comment on above: Performed By: #### C MP, BNP #### [facility] [address] [place] [address] Dr. Yaz Nur HSTROP 7.3 pg/mL Normal 4.0-76.1 [facility] Comment on above: Result Comment: CUT- OFF POINTS HAVE BEEN ESTABLISHED BASED ON THE FOURTH UNIVERSAL DEFINITIONS OF MYOCARDIAL INFARCTION. THE UPPER REFERENCE LIMIT (URL) OF TROPONIN, DEFINED THE 99TH PERCENTILE OF cTnI DISTRIBUTION IN A REFERENCE POPULATION, HAS BEEN CONFIRMED THE DECISION THRESHOLD FOR HI DIAGNOSIS. Performed By: #### C MP, BNP #### [facility] [address] [place] [address] Dr. Yaz Nur CBC AUTO DIFFon 08-17-2022 BASO # 0.1 103/ul Normal 0.0-0.1 [facility] Comment on above: Performed By: #### C BC #### [facility] [address] [place] [address] Dr. Yaz Nur Basophils/100 WBC (Bld) 1.5 % Normal 0.2-2.0 [facility] Comment on above: Performed By: #### C BC #### [facility] [address] [place] [address] Dr. Yaz Nur EO # 0.6 103/ul Normal 0.0-0.7 [facility] Comment on above: Performed By: #### C BC #### [facility] [address] [place] [address] Dr. Yaz Nur Eosinophils/100 WBC (Bld) 9.1 % Critically high 0.9-7.0 [facility] Comment on above: Performed By: #### C BC #### [facility] [address] [place] [address] Dr. Yaz Nur Erythrocyte distribution width (RBC) [Ratio] 13.2 % Normal 11.0-15.0 [facility] Comment on above: Performed By: #### C BC #### [facility] [address] [place] [address] Dr. Yaz Nur Hematocrit (Bld) [Volume fraction] 47.2 % Normal 42.0-54.0 [facility] Comment on above: Performed By: #### C BC #### [facility] [address] [place] [address] Dr. Yaz Nur Hemoglobin (Bld) [Mass/Vol] 16.2 g/dL Normal 14.0-18.0 [facility] Comment on above: Performed By: #### C BC #### [facility] [address] [place] [address] Dr. Yaz Nur IG # 0.02 10e3/ul Normal 0.00-0.03 [facility] Comment on above: Performed By: #### C BC #### [facility] [address] [place] [address] Dr. Yaz Nur IG % 0.3 % Normal 0.0-0.5 [facility] Comment on above: Performed By: #### C BC #### [facility] [address] [place] [address] Dr. Yaz Nur LYMPH # 1.7 103/ul Normal 1.2-3.8 [facility] Comment on above: Performed By: #### C BC #### [facility] [address] [place] [address] Dr. Yaz Nur Lymphocytes/100 WBC (Bld) 27.1 % Normal 20.5-60.0 [facility] Comment on above: Performed By: #### C BC #### [facility] [address] [place] [address] Dr. Yaz Nur MANUAL DIFF REQ NO Normal [facility] Comment on above: Performed By: #### C BC #### [facility] [address] [place] [address] Dr. Yaz Nur MCH (RBC) [Entitic mass] 31.3 pg Normal 25.9-34.0 [facility] Comment on above: Performed By: #### C BC #### [facility] [address] [place] [address] Dr. Yaz Nur MCHC (RBC) [Mass/Vol] 34.3 g/dL Normal 29.9-35.2 [facility] Comment on above: Performed By: #### C BC #### [facility] [address] [place] [address] Dr. Yaz Nur MCV (RBC) [Entitic vol] 91.1 fL Normal 80.0-94.0 [facility] Comment on above: Performed By: #### C BC #### [facility] [address] [place] [address] Dr. Yaz Nur MONO # 0.6 103/ul Normal 0.3-0.8 [facility] Comment on above: Performed By: #### C BC #### [facility] [address] [place] [address] Dr. Yaz Nur Monocytes/100 WBC (Bld) 10.2 % Normal 1.7-12.0 [facility] Comment on above: Performed By: #### C BC #### [facility] [address] [place] [address] Dr. Yaz Nur NEUT # 3.2 103/ul Normal 1.4-6.5 [facility] Comment on above: Performed By: #### C BC #### [facility] [address] [place] [address] Dr. Yaz Nur Neutrophils/100 WBC (Bld) 51.8 % Normal 43.0-75.0 [facility] Comment on above: Performed By: #### C BC #### [facility] [address] [place] [address] Dr. Yaz Nur Platelet mean volume (Bld) [Entitic vol] 10.7 fL Normal 9.5-13.5 [facility] Comment on above: Performed By: #### C BC #### [facility] [address] [place] [address] Dr. Yaz Nur PLT 174 103/ul Normal 150-450 [facility] Comment on above: Performed By: #### C BC #### [facility] [address] [place] [address] Dr. Yaz Nur RBC 5.18 106/ul Normal 4.70-6.10 [facility] Comment on above: Performed By: #### C BC #### [facility] [address] [place] [address] Dr. Yaz Nur WBC 6.2 103/ul Normal 4.0-11.0 [facility] Comment on above: Performed By: #### C BC #### [facility] [address] [place] [address] Dr. Yaz Nur Covid-19 PCR ([facility])on SARS-CoV-2 (COVID-19) RNA SHIRLENE+probe Ql (Unsp spec) Not detected Normal NOT DETECTED [facility] Comment on above: Result Comment: When diagnostic [...] for this test is supported by the [employer] of Health and Human Service's declaration that [...] Performed By: #### C MP, BNP #### [facility] [address] [place] [address] Dr. Yaz Nur PROF 14(COMP METB)on 022 Albumin [Mass/Vol] 4.3 g/dL Normal 3.4-5.0 [facility] Comment on above: Performed By: #### B PAPER PATTERN FOLDER, CMP, HSTROPN #### [facility] [address] [place] [address] Dr. Yaz Nur Albumin/Globulin [Mass ratio] 1.7 {ratio} Normal [facility] Comment on above: Performed By: #### B PAPER PATTERN FOLDER, CMP, HSTROPN #### [facility] [address] [place] [address] Dr. Yaz Nur ALP [Catalytic activity/Vol] 102 U/L Normal 46-116 [facility] Comment on above: Performed By: #### B PAPER PATTERN FOLDER, CMP, HSTROPN #### [facility] [address] [place] [address] Dr. Yaz Nur ALT [Catalytic activity/Vol] 27 U/L Normal 16-63 [facility] Comment on above: Performed By: #### B PAPER PATTERN FOLDER, CMP, HSTROPN #### [facility] [address] [place] [address] Dr. Yaz Nur Anion gap [Moles/Vol] 10.8 mmol/L Normal [facility] Comment on above: Performed By: #### B PAPER PATTERN FOLDER, CMP, HSTROPN #### [facility] [address] [place] [address] Dr. Yaz Nur AST [Catalytic activity/Vol] 33 U/L Normal 15-37 [facility] Comment on above: Performed By: #### B PAPER PATTERN FOLDER, CMP, HSTROPN #### [facility] [address] [place] [address] Dr. Yaz Nur Bilirubin [Mass/Vol] 1.0 mg/dL Normal 0.2-1.0 [facility] Comment on above: Performed By: #### B PAPER PATTERN FOLDER, CMP, HSTROPN #### [facility] [address] [place] [address] Dr. Yaz Nur Calcium [Mass/Vol] 9.0 mg/dL Normal 8.5-10.1 [facility] Comment on above: Performed By: #### B PAPER PATTERN FOLDER, CMP, HSTROPN #### [facility] [address] [place] [address] Dr. Yaz Nur Chloride [Moles/Vol] 105 mmol/L Normal 98-107 [facility] Comment on above: Performed By: #### B PAPER PATTERN FOLDER, CMP, HSTROPN #### [facility] [address] [place] [address] Dr. Yaz Nur CO2 [Moles/Vol] 28.5 mmol/L Normal 21.0-32.0 [facility] Comment on above: Performed By: #### B PAPER PATTERN FOLDER, CMP, HSTROPN #### [facility] [address] [place] [address] Dr. Yaz Nur Creatinine [Mass/Vol] 0.92 mg/dL Normal 0.70-1.30 [facility] Comment on above: Performed By: #### B PAPER PATTERN FOLDER, CMP, HSTROPN #### [facility] [address] [place] [address] Dr. Yaz Nur EGFR-AF LIBYAN >60 Normal >=60 [facility] Comment on above: Performed By: #### B PAPER PATTERN FOLDER, CMP, HSTROPN #### [facility] [address] [place] [address] Dr. Yaz Nur EGFR-NON AF LIBYAN >60 Normal >=60 [facility] Comment on above: Performed By: #### B PAPER PATTERN FOLDER, CMP, HSTROPN #### [facility] [address] [address] [address] Yaz Nur Globulin (S) [Mass/Vol] 2.6 g/dL Normal [facility] Comment on above: Performed By: #### B PAPER PATTERN FOLDER, CMP, HSTROPN #### [facility] [address] [address] [address] Yaz Nur Glucose [Mass/Vol] 108 mg/dL Critically high 74-106 [facility] Comment on above: Performed By: #### B PAPER PATTERN FOLDER, CMP, HSTROPN #### [facility] [address] [place] [address] Dr. Yaz Nur Potassium [Moles/Vol] 4.3 mmol/L Normal 3.5-5.1 [facility] Comment on above: Result Comment: spec imen hemolysed Performed By: #### B PAPER PATTERN FOLDER, CMP, HSTROPN #### [facility] [address] [place] [address] Dr. Yaz Nur Protein [Mass/Vol] 6.9 g/dL Normal 6.4-8.2 [facility] Comment on above: Performed By: #### B PAPER PATTERN FOLDER, CMP, HSTROPN #### [facility] [address] [place] [address] Dr. Yaz Nur Sodium [Moles/Vol] 140 mmol/L Normal 136-145 [facility] Comment on above: Performed By: #### B PAPER PATTERN FOLDER, CMP, HSTROPN #### [facility] [address] [place] [address] Dr. Yaz Nur Urea nitrogen [Mass/Vol] 16.0 mg/dL Normal 7.0-18.0 [facility] Comment on above: Performed By: #### B PAPER PATTERN FOLDER, CMP, HSTROPN #### [facility] [address] [place] [address] Dr. Yaz Nur Urea nitrogen/Creatinine [Mass ratio] 17.4 mg/mg Normal [facility] Comment on above: Performed By: #### B PAPER PATTERN FOLDER, CMP, HSTROPN #### [facility] [address] [place] [address] Dr. Yaz Nur PROTIMEon 08-17-2022 INR Coag (PPP) [Relative time] 1.03 {INR} Normal [facility] Comment on above: Performed By: #### P T, PTT #### [facility] [address] [place] [address] Dr. Yaz Nur INR GUIDELINES SEE BELOW Normal [facility] Comment on above: Result Comment: DAMON RED INR: 2.0 - 3.0 CONDITIONS NOT LISTED BELOW 2.5 - 3.5 FOR PROSTHETIC HEART VALVE REPLACEMENT 2.5 - 3.5 RECURRENT THROMBOSIS Performed By: #### P T, PTT #### [facility] [address] [place] [address] Dr. Yaz Nur PT Coag (PPP) [Time] 11.1 s Normal 9.0-11.6 [facility] Comment on above: Performed By: #### P T, PTT #### [facility] [address] [place] [address] Dr. Yaz Nur PTTon 08-17-2022 aPTT Coag (Bld) [Time] 27.7 s Normal 22.3-36.2 [facility] Comment on above: Performed By: #### P T, PTT #### [facility] [address] [place] [address] Dr. Yaz Nur TROPONIN, HIGH SENSITIVITYon 08-17-2022 HSTROP 7.5 pg/mL Normal 4.0-76.1 [facility] Comment on above: Result Comment: CUT- OFF POINTS HAVE BEEN ESTABLISHED BASED ON THE FOURTH UNIVERSAL DEFINITIONS OF MYOCARDIAL INFARCTION. THE UPPER REFERENCE LIMIT (URL) OF TROPONIN, DEFINED THE 99TH PERCENTILE OF cTnI DISTRIBUTION IN A REFERENCE POPULATION, HAS BEEN CONFIRMED THE DECISION THRESHOLD FOR HI DIAGNOSIS. Performed By: #### B PAPER PATTERN FOLDER, CMP, HSTROPN #### [facility] [address] [place] [address] Dr. Yaz Nur XR CHEST 1 Von [...] CEFERINO VALDOVINOS Date: 2022-08-17 17:22 Normal [facility] Summary Purpose Family History No Family History Records FoundNo Family History Records Found Advance Directives No Advanced Directives Records FoundNo Advanced Directives Records Found Additional Source Comments (unrecognized sect ion and content) No Status Records FoundNo Status Records Found INFORMATION SOURCE (unrecogn ized section and content) DATE CREATED AUTHOR 05/02/2018 [facility] DATE CREATED AUTHOR AUTHOR'S ORGANIZ ATION 09/16/2022 [facility] FOR RECORDS PERTAINING TO PATIENTS WHO ARE [...] BE BASED ON THE PRIMARY CLINICAL RECORDS. [employer] provides no warranty or guarantee of the accuracy or completeness of information in this document.
[2024-05-10 05:19] LABS: Hematocrit 46.2 % (42.0-54.0); Mean Corpuscular HGB Conc 32.5 g/dL (29.9-35.2); Mean Corpuscular Hemoglobin 29.8 pg (25.9-34.0); Mean Corpuscular Volume 91.7 fL (80.0-94.0); Mean Platelet Volume 10.1 fL (9.5-13.5); Platelet Count 180 10^3/uL (150-450); Red Blood Count 5.04 10^6/uL (4.70-6.10); Red Cell Distribution Width 13.2 % (11.0-15.0); White Blood Count 7.2 10^3/uL (4.0-11.0)
[2024-05-10 05:25] LABS: Estimated Average Glucose 103 mg/dL; Glycohemoglobin A1C 5.2 % (4.5-6.2)
[2024-05-10 05:40] LABS: Anion Gap 12.2; BUN Creatinine Ratio 15.7; Calcium 8.4 mg/dL (8.5-10.1); Carbon Dioxide 24.7 mmol/L (21.0-32.0); Chloride 109 mmol/L (98-107); Chol HDL Ratio 4.3; Cholesterol 125 mg/dL (<=200); Estimated GFR (African America >60 (>=60); Estimated GFR (Non-African Ame 57 (>=60); Glucose 111 mg/dL (74-106); HDL Cholesterol 29 mg/dL (40-60); Potassium 3.9 mmol/L (3.5-5.1); Sodium 142 mmol/L (136-145); Thyroid Stimulating Hormone 2.614 uIU/mL (0.358-3.740); Triglycerides 266 mg/dL (<=150); Troponin I High Sensitivity 11.9 pg/mL (4.0-76.1); VLDL CHOLESTEROL 53.2 mg/dL
--- NOTE | 2024-05-10 06:00 | ECG_ITS ---
The [facility] Test Date: 2024-05-10 Pat Name: ESPERANZA POLANCO Department: Room: 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1940 Requested By: STEPHANE SMALLS Order Number: [id number] Reading MD: STEPHANE SMALLS Measurements Intervals [place] Rate: 54 P: 35 DC: 216 QRS: 20 QRSD: 88 T: 43 QT: 434 QTc: 420 Interpretive Statements 1100 Sinus rhythm 2231 First degree AV block 3113 Cannot rule out anterior myocardial infarction, probably old [address] depression 7300 Indeterminate axis 9150 abnormal ECG Compared to ECG 05/09/2024 22:43:36 First degree AV block now present ST (T wave) deviation now present Incomplete right bundle-branch block no longer present Myocardial infarct finding still present Electronically Signed On 05-12-2024 6:44:43 EDT by STEPHANE SMALLS
--- NOTE | 2024-05-10 08:52 | P.DS_ITS ---
DS: Providers Provider Date of admission: 05/10/24 01:30 Primary care physician: Wicho Dominguez MD Consults: 05/10/24 08:32 Consult to Pharmacy Routine Consulting Provider: Reason for consultation: Please [place] me when Med Rec is Updated Has provider been notified: No Occupational Therapy Eval and Treat Routine Reason for consultation: Only if needed for Rehab Has provider been notified: No Physical Therapy Eval and Treat Routine Reason for consultation: Eval and Treat Has provider been notified: No DS: Diagnosis Discharge Diagnosis (1) Hypertriglyceridemia: (2) Hypercholesterolemia: (3) Coronary artery disease: (4) Chest pain, rule out acute myocardial infarction: Plan Chest pain as result of hypertensive urgency,-chest pain resolved at the time of discharge blood pressure stabilized at the time of discharge Admission status: Patient mated with hypertensive urgency, blood pressure improved, he was placed in observation status. He will be discharged home this morning. Maintain observation status DS: Summary Hospital Course Hospital Course: Patient presented to the emergency room with increasing episodes of left-sided chest pain. The last 1 lasted a couple hours. Some pain radiating to the left shoulder. No dyspnea. In the past his cardiac history was shortness of breath with his coronary artery disease exacerbations, in the ER found to have significant hypertensive urgency with a blood pressure of over 220 systolic. Blood pressure improved, his chest pain resolved, at this point patient is back to his normal self. Will maintain an aspirin a day, give sublingual nitroglyc ayana to take as needed start patient on Imdur daily and see me in the office in 2 days. Medications see list. Time Spent with Patient Time attestation: Total time spent providing and/or coordinating discharge services: Exam Constitutional Vital Signs, click to edit/add: Last Vital Signs Temp 98 F 05/09/24 22:36 Pulse 67 05/10/24 08:20 Resp 13 05/10/24 08:20 BP 123/82 05/10/24 01:49 Pulse Ox 96 05/10/24 08:10 O2 Del Method Room Air 05/10/24 08:32 Documenting provider has reviewed patient's vital signs: yes Common normals: no apparent distress Lymph Lymphatic: no lymphadenopathy noted Chest Common normals: inspection of chest normal Respiratory Common normals: normal respiratory effort and no retractions Cardio Common normals: regular rate and regular rhythm GI Common normals: Normal to inspection, nondistended, normoactive bowel sounds present, soft to palpation and non-tender Extremity Common normals: normal to inspection and no clubbing, cyanosis or edema DS: Data Data Completed and Pending Labs on day of discharge: Labs from last 24 hours 05/10/24 05/10/24 05/09/24 05:04 00:38 23:23 WBC 7.2 6.4 RBC 5.04 5.40 Hgb 15.0 16.2 Hct 46.2 49.2 MCV 91.7 91.1 MCH 29.8 30.0 MCHC 32.5 32.9 RDW 13.2 13.2 Plt Count 180 178 MPV 10.1 10.0 Neut % (Auto) 68.9 Lymph % (Auto) 16.6 L [place] % (Auto) 8.8 Eos % (Auto) 4.4 Baso % (Auto) 0.8 Neut # (Auto) 4.4 Lymph # (Auto) 1.1 L [place] # (Auto) 0.6 Eos # (Auto) 0.3 Baso # (Auto) 0.1 Abs Immat Gran (auto) 0.03 Imm/Tot Granulo (auto) 0.5 Sodium 142 143 Potassium 3.9 3.9 Chloride 109 H 106 Carbon Dioxide 24.7 28.0 Anion Gap 12.2 12.9 BUN 19.0 H 16.0 Creatinine 1.21 1.24 Est GFR ( Amer) >60 >60 Est GFR (Non-Af Amer) 57 L 56 L BUN/Creatinine Ratio 15.7 12.9 Glucose 111 H 126 H Estimat Average Glucose 103 Hemoglobin A1c 5.2 Calcium 8.4 L 9.0 Troponin I High Sens 11.9 11.3 11.8 NT-Pro-B Natriuret Pep 190.0 Triglycerides 266 H Cholesterol 125 LDL Cholesterol, Calc 43.0 VLDL Cholesterol 53.2 HDL Cholesterol 29 L Cholesterol/HDL Ratio 4.3 TSH 2.614 Discharge Plan Discharge Disposition: Home, Self-Care Discharge Medications: New isosorbide mononitrate 30 mg Tablet Extended Release 24 Hr 30 mg PO QD Qty: 30 11RF nitroglycerin 0.4 mg tablet, sublingual 0.4 mg sublingual Q5M PRN (Reason: chest pain) Qty: 20 0RF Rx Instructions: do not exceed 3 doses per episode Continued amlodipine 5 mg tablet 5 mg PO DAILY rosuvastatin 5 mg tablet 5 mg PO DAILY fenofibrate nanocrystallized 145 mg tablet 145 mg PO DAILY thyroid (pork) [[place] Thyroid] 90 mg tablet 90 mg PO DAILY aspirin [Children's Aspirin] 81 mg tablet,chewable 81 mg PO DAILY vitamin E (dl, acetate) 400 unit PO DAILY Activity: increase activity as tolerated Diet: advance to your usual diet Print Language: Yakut Patient Instructions: Isosorbide Mononitrate (By mouth) (Imdur, Imdur ER, Ismo), Chest Pain (DC) Forms: Portal Instructions Follow Up Appointments: Follow up with Dr Dominguez on Sunday
--- NOTE | 2024-05-10 08:52 | PM.HP ---
HPI H&P: HPI History of Present Illness Chief complaint: Chest Pain RULE OUT ACUTE MY OCAEDIAL INFARCTION Narrative: Patient presented to the emergency room with increasing episodes of chest pain. This was left-sided radiating into the left arm up into the neck. No significant dyspnea with it, in the past with his previous coronary artery disease symptoms it was just the shortness of breath heart. Upon presentation to the emergency room he had a blood pressure of over 220 systolic. Patient was transferred to the intensive care unit for chest pain rule out myocardial infarction with hypertensive urgency. I saw patient up on the ICU, he was resting comfortably sitting up in his chair, he has had no further chest pain. He has not been up ambulating yet. 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 He feels like he is back to his baseline currently. Opioid HPI Opioid Management Most Recent Pain and Opioid Data: Last Pain Assessment 05/10/24 08:00 Last ORT Total Score 0 05/10/24 01:49 Last ORT Risk Category Low Risk 05/10/24 01:49 PFSH PFSH Social History Within the past year, how often did you have a drink containing alcohol: never Score interpretation: A score less than 4 is consistent with normal alcohol consumption. 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 [employer] Highest level of school completed/degree received: high school graduate Are you now , , , , never or living with a partner: Little interest or pleasure in doing things: not at all Feeling down, depressed, or hopeless: not at all Feel stressed/tense/nervous/anxious/difficulty sleeping: not at all Do you think of yourself as: straight/heterosexual Gender Identity: male Meds Home Medications and Allergies Home Medications ?Medication ?Instructions ?Recorded ?Confirmed ?Type amlodipine 5 mg tablet 5 mg PO DAILY 05/10/24 05/10/24 History aspirin 81 mg chewable tablet 81 mg PO DAILY 05/10/24 05/10/24 History ([facility] Aspirin) fenofibrate nanocrystallized 145 145 mg PO DAILY 05/10/24 05/10/24 History mg tablet isosorbide mononitrate 30 mg 30 mg PO QD #30 tabs 05/10/24 Rx tablet,extended release 24 hr rosuvastatin 5 mg tablet 5 mg PO DAILY 05/10/24 05/10/24 History thyroid (pork) 90 mg tablet 90 mg PO DAILY 05/10/24 05/10/24 History ([place] Thyroid) vitamin E (dl, acetate) 400 unit PO DAILY 05/10/24 05/10/24 History Allergies Allergy/AdvReac Type Severity Reaction Status Date / Time No Known Drug Allergies Allergy Verified 05/09/24 22:42 Exam Constitutional Vital Signs, click to edit/add: Last Vital Signs Temp 98 F 05/09/24 22:36 Pulse 67 05/10/24 08:20 Resp 13 05/10/24 08:20 BP 123/82 05/10/24 01:49 Pulse Ox 96 05/10/24 08:10 O2 Del Method Room Air 05/10/24 08:32 Documenting provider has reviewed patient's vital signs: yes Common normals: no apparent distress Lymph Lymphatic: no lymphadenopathy noted Chest Common normals: inspection of chest normal Respiratory Common normals: normal respiratory effort and no retractions Cardio Common normals: regular rate and regular rhythm GI Common normals: Normal to inspection, nondistended, normoactive bowel sounds present, soft to palpation and non-tender Extremity Common normals: normal to inspection and no clubbing, cyanosis or edema Results Labs Labs: Short CBC 05/09/24 05/10/24 Range/Units 23:23 05:04 WBC 6.4 7.2 (4.0-11.0) 10^3/uL Hgb 16.2 15.0 (14.0-18.0) g/dL Hct 49.2 46.2 (42.0-54.0) % Plt Count 178 180 (150-450) 10^3/uL BMP 05/09/24 05/10/24 23:23 05:04 Sodium 143 142 Potassium 3.9 3.9 Chloride 106 109 H Carbon Dioxide 28.0 24.7 BUN 16.0 19.0 H Creatinine 1.24 1.21 Glucose 126 H 111 H Calcium 9.0 8.4 L Assessment and Plan Assessment and Plan (1) Chest pain, rule out acute myocardial infarction: Plan Chest pain as result of hypertensive urgency,-cardiac markers were cycled and were negative, BNP was negative, rest of his labs are unremarkable other than the hypertriglyceridemia. Patient feels back to his normal self. At this point we will continue with an aspirin a day, add Imdur, see me in the office in 2 days. Will give further outpatient cardiac testing. If symptoms return he is to return to the emergency room. Will also add sublingual nitroglycerin to the plan. Admission status: Patient mated with hypertensive urgency, blood pressure improved, he was placed in observation status. He will be discharged home this morning. Maintain observation status
--- NOTE | 2024-05-10 09:18 | PC.NURSE ---
pt stated he does not want to take AM meds here, will take them when he gets home. pt aware of new prescription. educated pt on taking bp daily and keeping a log, encouraged to take to dr hammond. pt verbalized understanding.
--- NOTE | 2024-05-10 09:36 | PC.NURSE ---
discharge instructions explained to pt, pt verbalized understanding. pt dressed self, ambulated to exit. discharged to private vehicle.
--- NOTE | 2024-05-12 11:24 | CM.DCFOLLOWU ---
1st attempt 05/12/24
--- NOTE | 2024-05-13 15:44 | CM.DCFOLLOWU ---
Person spoke with:patients How are you feeling? well, he is napping now How is your pain? none Did you understand your discharge instructions? yes Do you have any questions about your discharge instructions? no Were you given any prescriptions at discharge? yes Were you able to get your prescriptions filled? yes Do you understand how to take your medications as ordered? yes Do you have any questions about your follow up appointment and do you plan to keep your follow up appointment? no questions, saw Dr. Dominguez today Is there anything else that you would like to discuss? no Questions/Comments/Concerns/Other: none
== END 2024-05-10 09:32 | disposition home or self-care (01) ==
LOC: ER 05-10 01:21 → ICU 05-10 01:47
PROVIDERS: Registered Nurse; Admitting Provider Family Medicine; Emergency Provider Internal Medicine; PCP Family Medicine; Visit Provider Family Medicine
DX: I16.0 Hypertensive urgency (principal); R07.9 Chest pain, unspecified; E78.1 Pure hyperglyceridemia; E78.00 Pure hypercholesterolemia, unspecified; I25.10 Atherosclerotic heart disease of native coronary artery without angina pectoris; I25.2 Old myocardial infarction; Z79.82 Long term (current) use of aspirin; I45.10 Unspecified right bundle-branch block
CPT/HCPCS: 36415; 71045; 80048; 80061; 83036; 83880; 84443; 84484; 85025; 85027; 93005; 99285; G0378

== ENCOUNTER 2024-07-26 08:13 | Outpatient (OUT) | payer MEDICARE, SELFPAY ==
--- OUTSIDE RECORDS SUMMARY | 2024-07-26 08:15 | XMS_ITS | CCD ---
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; Translations: [Old [...] 2 Episodic Other aftercare (1 source) Other usp (current) drug therapy; Translations: [OTH SENIOR LIVING CURRENT DRUG THERAPY] Onset: 2 Episodic Other aftercare (1 source) intermediate card tender (current) use of aspirin; Translations: [SENIOR LIVING [...] by: BERNIE COLINDRES Date: 2022-09-12 10:13 Normal [facility] PSA, FREE AND TOTAL RATIOon 09-10-2022 % Free PSA 44.1 % Normal [facility] Comment on above: Result Comment: The [...] Performed By: #### C MP, BNP #### [facility] [address] [place] [address] Dr. Yaz Nur Prostate specific Ag [Mass/Vol] 2.7 ng/mL Normal 0.0-4.0 [facility] Comment on above: Result Comment: Cooper MAY methodology. . According to the [place] [employer], Serum PSA should decrease and [...] Performed By: #### C MP, BNP #### [facility] [address] [place], [place] [address] Dr. Yaz Nur PSA, Free 1.19 ng/mL Normal N/A [facility] Comment on above: Result Comment: Cooper MAY methodology. Performed By: #### C MP, BNP #### [facility] [address] [place] [address] Dr. Yaz Nur CBC AUTO DIFFon 09-09-2022 BASO # 0.1 103/ul Normal 0.0-0.1 [facility] Comment on above: Performed By: #### C MP, BNP #### [facility] [address] [place] [address] Dr. Yaz Nur Basophils/100 WBC (Bld) 1.0 % Normal 0.2-2.0 [facility] Comment on above: Performed By: #### C MP, BNP #### [facility] [address] [place] [address] Dr. Yaz Nur EO # 0.5 103/ul Normal 0.0-0.7 [facility] Comment on above: Performed By: #### C MP, BNP #### [facility] [address] [place] [address] Dr. Yaz Nur Eosinophils/100 WBC (Bld) 8.8 % Critically high 0.9-7.0 [facility] Comment on above: Performed By: #### C MP, BNP #### [facility] [address] [place] [address] Dr. Yaz Nur Erythrocyte distribution width (RBC) [Ratio] 13.4 % Normal 11.0-15.0 [facility] Comment on above: Performed By: #### C MP, BNP #### [facility] [address] [place] [address] Dr. Yaz Nur Hematocrit (Bld) [Volume fraction] 46.8 % Normal 42.0-54.0 [facility] Comment on above: Performed By: #### C MP, BNP #### [facility] [address] [place] [address] Dr. Yaz Nur Hemoglobin (Bld) [Mass/Vol] 16.2 g/dL Normal 14.0-18.0 [facility] Comment on above: Performed By: #### C MP, BNP #### [facility] [address] [place] [address] Dr. Yaz Nur IG # 0.01 10e3/ul Normal 0.00-0.03 [facility] Comment on above: Performed By: #### C MP, BNP #### [facility] [address] [place] [address] Dr. Yaz Nur IG % 0.2 % Normal 0.0-0.5 [facility] Comment on above: Performed By: #### C MP, BNP #### [facility] [address] [place] [address] Dr. Yaz Nur LYMPH # 1.5 103/ul Normal 1.2-3.8 [facility] Comment on above: Performed By: #### C MP, BNP #### [facility] [address] [place] [address] Dr. Yaz Nur Lymphocytes/100 WBC (Bld) 29.2 % Normal 20.5-60.0 [facility] Comment on above: Performed By: #### C MP, BNP #### [facility] [address] [place] [address] Dr. Yaz Nur MANUAL DIFF REQ NO Normal [facility] Comment on above: Performed By: #### C MP, BNP #### [facility] [address] [place] [address] Dr. Yaz Nur MCH (RBC) [Entitic mass] 31.4 pg Normal 25.9-34.0 [facility] Comment on above: Performed By: #### C MP, BNP #### [facility] [address] [place] [address] Dr. Yaz Nur MCHC (RBC) [Mass/Vol] 34.6 g/dL Normal 29.9-35.2 [facility] Comment on above: Performed By: #### C MP, BNP #### [facility] [address] [place] [address] Dr. Yaz Nur MCV (RBC) [Entitic vol] 90.7 fL Normal 80.0-94.0 [facility] Comment on above: Performed By: #### C MP, BNP #### [facility] [address] [place] [address] Dr. Yaz Nur MONO # 0.6 103/ul Normal 0.3-0.8 [facility] Comment on above: Performed By: #### C MP, BNP #### [facility] [address] [place] [address] Dr. Yaz Nur Monocytes/100 WBC (Bld) 11.2 % Normal 1.7-12.0 [facility] Comment on above: Performed By: #### C MP, BNP #### [facility] [address] [place] [address] Dr. Yaz Nur NEUT # 2.5 103/ul Normal 1.4-6.5 [facility] Comment on above: Performed By: #### C MP, BNP #### [facility] [address] [place] [address] Dr. Yaz Nur Neutrophils/100 WBC (Bld) 49.6 % Normal 43.0-75.0 [facility] Comment on above: Performed By: #### C MP, BNP #### [facility] [address] [place] [address] Dr. Yaz Nur Platelet mean volume (Bld) [Entitic vol] 9.9 fL Normal 9.5-13.5 [facility] Comment on above: Performed By: #### C MP, BNP #### [facility] [address] [place] [address] Dr. Yaz Nur PLT 157 103/ul Normal 150-450 [facility] Comment on above: Performed By: #### C MP, BNP #### [facility] [address] [place] [address] Dr. Yaz Nur RBC 5.16 106/ul Normal 4.70-6.10 [facility] Comment on above: Performed By: #### C MP, BNP #### [facility] [address] [place] [address] Dr. Yaz Nur WBC 5.1 103/ul Normal 4.0-11.0 [facility] Comment on above: Performed By: #### C MP, BNP #### [facility] [address] [place] [address] Dr. Yaz Nur CULTURE URINEon 09-09-2022 CULTURE URINE Culture Observations : LIGHT GROWTH OF MIXED SKIN COCO. NO POTENTIAL PATHOGENS SEEN. Normal [facility] Comment on above: Performed By: #### C MP, BNP #### [facility] [address] [place] [address] Dr. Yaz Nur PROTIMEon 09-09-2022 INR Coag (PPP) [Relative time] 1.06 {INR} Normal [facility] Comment on above: Performed By: #### C MP, BNP #### [facility] [address] [place] [address] Dr. Yaz Nur INR GUIDELINES SEE BELOW Normal [facility] Comment on above: Result Comment: DAMON RED INR: 2.0 - 3.0 CONDITIONS NOT LISTED BELOW 2.5 - 3.5 FOR PROSTHETIC HEART VALVE REPLACEMENT 2.5 - 3.5 RECURRENT THROMBOSIS Performed By: #### C MP, BNP #### [facility] [address] [place] [address] Dr. Yaz Nur PT Coag (PPP) [Time] 11.4 s Normal 9.0-11.6 [facility] Comment on above: Performed By: #### C MP, BNP #### [facility] [address] [place] [address] Dr. Yaz Nur PTTon 09-09-2022 aPTT Coag (Bld) [Time] 30.0 s Normal 22.3-36.2 [facility] Comment on above: Performed By: #### C MP, BNP #### [facility] [address] [place] [address] Dr. Yaz Nur UA RANDOM W/MICROSCOPICon BACTERIA NONE SEEN Normal NONE SEEN [facility] Comment on above: Performed By: #### C MP, BNP #### [facility] [address] [place] [address] Dr. Yaz Nur Bilirubin Ql (U) Negative Normal NEGATIVE [facility] Comment on above: Performed By: #### C MP, BNP #### [facility] [address] [place] [address] Dr. Yaz Nur CAST NONE SEEN Normal NONE SEEN [facility] Comment on above: Performed By: #### C MP, BNP #### [facility] [address] [place] [address] Dr. Yaz Nur Clarity (U) CLEAR Normal CLEAR [facility] Comment on above: Performed By: #### C MP, BNP #### [facility] [address] [place] [address] Dr. Yaz Nur Color (U) YELLOW Normal YELLOW [facility] Comment on above: Performed By: #### C MP, BNP #### [facility] [address] [place] [address] Dr. Yaz Nur Crystals LM Nom (Urine sed) NONE SEEN Normal NONE SEEN [facility] Comment on above: Performed By: #### C MP, BNP #### [facility] [address] [place] [address] Dr. Yaz Nur Epithelial cells LM Ql (Urine sed) RARE Normal NONE SEEN /RARE [facility] Comment on above: Performed By: #### C MP, BNP #### [facility] [address] [place] [address] Dr. Yaz Nur Glucose Ql (U) Negative Normal NEGATIVE [facility] Comment on above: Performed By: #### C MP, BNP #### [facility] [address] [place] [address] Dr. Yaz Nur Hemoglobin Ql (U) Negative Normal NEGATIVE [facility] Comment on above: Performed By: #### C MP, BNP #### [facility] [address] [place] [address] Dr. Yaz Nru Ketones Ql (U) Negative Normal NEGATIVE [facility] Comment on above: Performed By: #### C MP, BNP #### [facility] [address] [place] [address] Dr. Yaz Nur LEUKOCYTES Negative Normal NEGATIVE [facility] Comment on above: Performed By: #### C MP, BNP #### [facility] [address] [place] [address] Dr. Yaz Nur MUCOUS NONE SEEN Normal NONE SEEN [facility] Comment on above: Performed By: #### C MP, BNP #### [facility] [address] [place] [address] Dr. Yaz Nur Nitrite Ql (U) Negative Normal NEGATIVE [facility] Comment on above: Performed By: #### C MP, BNP #### [facility] [address] [place] [address] Dr. Yaz Nur pH (U) 5.5 [pH] Normal 5-9 [facility] Comment on above: Performed By: #### C MP, BNP #### [facility] [address] [place] [address] Dr. Yaz Nur RBC 0-2 Normal 0-2 [facility] Comment on above: Performed By: #### C MP, BNP #### [facility] [address] [place] [address] Dr. Yaz Nur SPEC GRAVITY >=1.030 Abnormal 1.005-<=1.025 [facility] Comment on above: Performed By: #### C MP, BNP #### [facility] [address] [place] [address] Dr. Yaz Nur UA PROTEIN Negative Normal NEGATIVE/ TRACE [facility] Comment on above: Performed By: #### C MP, BNP #### [facility] [address] [place] [address] Dr. Yaz Nur Urobilinogen Qn (U) 0.2 {Joseph'U}/dL Normal 0.2 - 1. 0 [facility] Comment on above: Performed By: #### C MP, BNP #### [facility] [address] [place] [address] Dr. Yaz Nur WBC 0-2 Abnormal NONE SEEN [facility] Comment on above: Performed By: #### C MP, BNP #### [facility] [address] [place] [address] Dr. Yaz Nur BNPon 08-18-2022 Natriuretic peptide B (Bld) [Mass/Vol] 228.0 pg/mL Normal <=1,800.0 [facility] Comment on above: Performed By: #### C MP, BNP #### [facility] [address] [place] [address] Dr. Yaz Nur CARDIAC KANDIS 3-6on 2 CK [Catalytic activity/Vol] 165 U/L Normal 39-308 [facility] Comment on above: Performed By: #### C MREP #### [facility] [address] [place] [address] Dr. Yaz Nur CK.MB [Mass/Vol] 2.85 ng/mL Normal <=3.60 [facility] Comment on above: Performed By: #### C MREP #### [facility] [address] [place] [address] Dr. Yaz Nur HSTROP 6.7 pg/mL Normal 4.0-76.1 [facility] Comment on above: Result Comment: CUT- OFF POINTS HAVE BEEN ESTABLISHED BASED ON THE FOURTH UNIVERSAL DEFINITIONS OF MYOCARDIAL INFARCTION. THE UPPER REFERENCE LIMIT (URL) OF TROPONIN, DEFINED THE 99TH PERCENTILE OF cTnI DISTRIBUTION IN A REFERENCE POPULATION, HAS BEEN CONFIRMED THE DECISION THRESHOLD FOR AR DIAGNOSIS. Performed By: #### C MREP #### [facility] [address] [place] [address] Dr. Yaz Nur CBC AUTO DIFFon 08-18-2022 BASO # 0.1 103/ul Normal 0.0-0.1 [facility] Comment on above: Performed By: #### C BC #### [facility] [address] [place] [address] Dr. Yaz Nur Basophils/100 WBC (Bld) 1.3 % Normal 0.2-2.0 [facility] Comment on above: Performed By: #### C BC #### [facility] [address] [place] [address] Dr. Yaz Nur EO # 0.6 103/ul Normal 0.0-0.7 [facility] Comment on above: Performed By: #### C BC #### [facility] [address] [place] [address] Dr. Yaz Nur Eosinophils/100 WBC (Bld) 9.9 % Critically high 0.9-7.0 [facility] Comment on above: Performed By: #### C BC #### [facility] [address] [place] [address] Dr. Yaz Nur Erythrocyte distribution width (RBC) [Ratio] 13.2 % Normal 11.0-15.0 [facility] Comment on above: Performed By: #### C BC #### [facility] [address] [place] [address] Dr. Yaz Nur Hematocrit (Bld) [Volume fraction] 47.0 % Normal 42.0-54.0 [facility] Comment on above: Performed By: #### C BC #### [facility] [address] [place] [address] Dr. Yaz Nru Hemoglobin (Bld) [Mass/Vol] 15.8 g/dL Normal 14.0-18.0 [facility] Comment on above: Performed By: #### C BC #### [facility] [address] [place] [address] Dr. Yaz Nur IG # 0.02 10e3/ul Normal 0.00-0.03 [facility] Comment on above: Performed By: #### C BC #### [facility] [address] [place] [address] Dr. Yaz Nur IG % 0.3 % Normal 0.0-0.5 [facility] Comment on above: Performed By: #### C BC #### [facility] [address] [place] [address] Dr. Yaz Nur LYMPH # 1.8 103/ul Normal 1.2-3.8 [facility] Comment on above: Performed By: #### C BC #### [facility] [address] [place] [address] Dr. Yaz Nur Lymphocytes/100 WBC (Bld) 28.1 % Normal 20.5-60.0 [facility] Comment on above: Performed By: #### C BC #### [facility] [address] [place] [address] Dr. Yaz Nur MANUAL DIFF REQ NO Normal [facility] Comment on above: Performed By: #### C BC #### [facility] [address] [place] [address] Dr. Yaz Nur MCH (RBC) [Entitic mass] 31.3 pg Normal 25.9-34.0 [facility] Comment on above: Performed By: #### C BC #### [facility] [address] [place] [address] [address] Yaz Nur MCHC (RBC) [Mass/Vol] 33.6 g/dL Normal 29.9-35.2 [facility] Comment on above: Performed By: #### C BC #### [facility] [address] [place] [address] [address] Yaz Nru MCV (RBC) [Entitic vol] 93.1 fL Normal 80.0-94.0 [facility] Comment on above: Performed By: #### C BC #### [facility] [address] [place] [address] Dr. Yaz Nur MONO # 0.6 103/ul Normal 0.3-0.8 [facility] Comment on above: Performed By: #### C BC #### [facility] [address] [place] [address] Dr. Yaz Nur Monocytes/100 WBC (Bld) 9.7 % Normal 1.7-12.0 [facility] Comment on above: Performed By: #### C BC #### [facility] [address] [place] [address] Dr. Yaz Nur NEUT # 3.2 103/ul Normal 1.4-6.5 [facility] Comment on above: Performed By: #### C BC #### [facility] [address] [place] [address] Dr. Yaz Nur Neutrophils/100 WBC (Bld) 50.7 % Normal 43.0-75.0 [facility] Comment on above: Performed By: #### C BC #### [facility] [address] [place] [address] [address] Yaz Nur Platelet mean volume (Bld) [Entitic vol] 9.9 fL Normal 9.5-13.5 [facility] Comment on above: Performed By: #### C BC #### [facility] [address] [place] [address] [address] Yaz Nur PLT 144 103/ul Critically low 150-450 [facility] Comment on above: Performed By: #### C BC #### [facility] [address] [place] [address] [address] Yaz Nur RBC 5.05 106/ul Normal 4.70-6.10 [facility] Comment on above: Performed By: #### C BC #### [facility] [address] [place] [id number] Yaz Nur WBC 6.4 103/ul Normal 4.0-11.0 [facility] Comment on above: Performed By: #### C BC #### [facility] [address] [place] [id number] Yaz Nur ECHOCARDIO M/2D COMPLETEon 1 ECHOCARDIO M/2D COMPLETE Patient: ESPERANZA POLANCO Exam Date: 08/18/2022 : 1940 Gender:M Ordering : DR STEPHANE SMALLS . Admission #: [id number] Family : Order #: [id number] CLICK HERE TO VIEW EXAM ECHOCARDIOGRAM REPORT [...] Jaimes M.D. on 08/22/2022 at 07:53 Normal [facility] PROF 14(COMP METB)on 08-18- 022 Albumin [Mass/Vol] 3.9 g/dL Normal 3.4-5.0 [facility] Comment on above: Performed By: #### C MP, BNP #### [facility] [address] [place] [address] [address] Yaz Nur Albumin/Globulin [Mass ratio] 1.3 {ratio} [facility] Comment on above: Performed By: #### C MP, BNP #### [facility] [address] [place] [address] Dr. Yaz Nur ALP [Catalytic activity/Vol] 94 U/L Normal 46-116 [facility] Comment on above: Performed By: #### C MP, BNP #### [facility] [address] [place] [address] [address] Yaz Nur ALT [Catalytic activity/Vol] 21 U/L Normal 16-63 [facility] Comment on above: Performed By: #### C MP, BNP #### [facility] [address] [place] [address] [address] Yaz Nur Anion gap [Moles/Vol] 8.8 mmol/L Normal [facility] Comment on above: Performed By: #### C MP, BNP #### [facility] [address] [place] [address] [address] Yaz Nur AST [Catalytic activity/Vol] 16 U/L Normal 15-37 [facility] Comment on above: Performed By: #### C MP, BNP #### [facility] [address] [place] [address] [address] Yaz Nur Bilirubin [Mass/Vol] 1.0 mg/dL Normal 0.2-1.0 [facility] Comment on above: Performed By: #### C MP, BNP #### [facility] [address] [place] [address] [address] Yaz Nur Calcium [Mass/Vol] 8.6 mg/dL Normal 8.5-10.1 [facility] Comment on above: Performed By: #### C MP, BNP #### [facility] [address] [place] [address] Dr. Yaz Nur Chloride [Moles/Vol] 106 mmol/L Normal 98-107 [facility] Comment on above: Performed By: #### C MP, BNP #### [facility] [address] [place] [address] Dr. Yaz Nur CO2 [Moles/Vol] 28.5 mmol/L Normal 21.0-32.0 [facility] Comment on above: Performed By: #### C MP, BNP #### [facility] [address] [place] [address] Dr. Yaz Nur Creatinine [Mass/Vol] 1.14 mg/dL Normal 0.70-1.30 [facility] Comment on above: Performed By: #### C MP, BNP #### [facility] [address] [place] [address] Dr. Yaz Nur EGFR-AF VENEZUELAN >60 Normal >=60 [facility] Comment on above: Performed By: #### C MP, BNP #### [facility] [address] [place] [address] Dr. Yaz Nur EGFR-NON AF VENEZUELAN >60 Normal >=60 [facility] Comment on above: Performed By: #### C MP, BNP #### [facility] [address] [place] [address] Dr. Yaz Nur Globulin (S) [Mass/Vol] 2.9 g/dL Normal [facility] Comment on above: Performed By: #### C MP, BNP #### [facility] [address] [place] [address] Dr. Yaz Nur Glucose [Mass/Vol] 82 mg/dL Normal 74-106 [facility] Comment on above: Performed By: #### C MP, BNP #### [facility] [address] [place] [address] Dr. Yaz Nur Potassium [Moles/Vol] 4.3 mmol/L Normal 3.5-5.1 [facility] Comment on above: Performed By: #### C MP, BNP #### [facility] [address] [place] [address] Dr. Yaz Nur Protein [Mass/Vol] 6.8 g/dL Normal 6.4-8.2 [facility] Comment on above: Performed By: #### C MP, BNP #### [facility] [address] [place] [address] Dr. Yaz Nur Sodium [Moles/Vol] 139 mmol/L Normal 136-145 [facility] Comment on above: Performed By: #### C MP, BNP #### [facility] [address] [place] [address] Dr. Yaz Nur Urea nitrogen [Mass/Vol] 15.0 mg/dL Normal 7.0-18.0 [facility] Comment on above: Performed By: #### C MP, BNP #### [facility] [address] [place] [address] Dr. Yaz Nur Urea nitrogen/Creatinine [Mass ratio] 13.2 mg/mg Normal [facility] Comment on above: Performed By: #### C MP, BNP #### [facility] [address] [place] [address] Dr. Yaz Nur BNPon 08-17-2022 Natriuretic peptide B (Bld) [Mass/Vol] 274.0 pg/mL Normal <=1,800.0 [facility] Comment on above: Performed By: #### B FIELD INSTALLATION TECHNICIAN, CMP, HSTROPN #### [facility] [address] [place] [address] Dr. Yaz Nur CARDIAC KANDIS 3-6on 2 CK [Catalytic activity/Vol] 190 U/L Normal 39-308 [facility] Comment on above: Performed By: #### C MP, BNP #### [facility] [address] [place] [address] Dr. Yaz Nur CK.MB [Mass/Vol] 3.22 ng/mL Normal <=3.60 [facility] Comment on above: Performed By: #### C MP, BNP #### [facility] [address] [place] [address] Dr. Yaz Nur HSTROP 7.3 pg/mL Normal 4.0-76.1 [facility] Comment on above: Result Comment: CUT- OFF POINTS HAVE BEEN ESTABLISHED BASED ON THE FOURTH UNIVERSAL DEFINITIONS OF MYOCARDIAL INFARCTION. THE UPPER REFERENCE LIMIT (URL) OF TROPONIN, DEFINED THE 99TH PERCENTILE OF cTnI DISTRIBUTION IN A REFERENCE POPULATION, HAS BEEN CONFIRMED THE DECISION THRESHOLD FOR AR DIAGNOSIS. Performed By: #### C MP, BNP #### [facility] [address] [place] [address] Dr. Yaz Nur CBC AUTO DIFFon 08-17-2022 BASO # 0.1 103/ul Normal 0.0-0.1 [facility] Comment on above: Performed By: #### C BC #### [facility] [address] [place] [address] Dr. Yaz Nur Basophils/100 WBC (Bld) 1.5 % Normal 0.2-2.0 [facility] Comment on above: Performed By: #### C BC #### [facility] [address] [place] [address] Dr. Yaz Nur EO # 0.6 103/ul Normal 0.0-0.7 [facility] Comment on above: Performed By: #### C BC #### [facility] [address] [place] [address] Dr. Yaz Nur Eosinophils/100 WBC (Bld) 9.1 % Critically high 0.9-7.0 [facility] Comment on above: Performed By: #### C BC #### [facility] [address] [place] [address] Dr. Yaz Nur Erythrocyte distribution width (RBC) [Ratio] 13.2 % Normal 11.0-15.0 [facility] Comment on above: Performed By: #### C BC #### [facility] [address] [place] [address] Dr. Yaz Nur Hematocrit (Bld) [Volume fraction] 47.2 % Normal 42.0-54.0 [facility] Comment on above: Performed By: #### C BC #### [facility] [address] [place] [address] Dr. Yaz Nur Hemoglobin (Bld) [Mass/Vol] 16.2 g/dL Normal 14.0-18.0 [facility] Comment on above: Performed By: #### C BC #### [facility] [address] [place] [address] Dr. Yaz Nur IG # 0.02 10e3/ul Normal 0.00-0.03 [facility] Comment on above: Performed By: #### C BC #### [facility] [address] [place] [address] Dr. Yaz Nur IG % 0.3 % Normal 0.0-0.5 [facility] Comment on above: Performed By: #### C BC #### [facility] [address] [place] [address] Dr. Yaz Nur LYMPH # 1.7 103/ul Normal 1.2-3.8 [facility] Comment on above: Performed By: #### C BC #### [facility] [address] [place] [address] Dr. Yaz Nur Lymphocytes/100 WBC (Bld) 27.1 % Normal 20.5-60.0 [facility] Comment on above: Performed By: #### C BC #### [facility] [address] [place] [address] Dr. Yaz Nur MANUAL DIFF REQ NO Normal [facility] Comment on above: Performed By: #### C BC #### [facility] [address] [place] [address] Dr. Yaz Nur MCH (RBC) [Entitic mass] 31.3 pg Normal 25.9-34.0 [facility] Comment on above: Performed By: #### C BC #### [facility] [address] [place] [address] Dr. Yaz Nur MCHC (RBC) [Mass/Vol] 34.3 g/dL Normal 29.9-35.2 [facility] Comment on above: Performed By: #### C BC #### [facility] [address] [address] [address] Yaz Nur MCV (RBC) [Entitic vol] 91.1 fL Normal 80.0-94.0 [facility] Comment on above: Performed By: #### C BC #### [facility] [address] [address] [address] Yaz Nur MONO # 0.6 103/ul Normal 0.3-0.8 [facility] Comment on above: Performed By: #### C BC #### [facility] [address] [place] [address] Dr. Yaz Nur Monocytes/100 WBC (Bld) 10.2 % Normal 1.7-12.0 [facility] Comment on above: Performed By: #### C BC #### [facility] [address] [place] [address] Dr. Yaz Nur NEUT # 3.2 103/ul Normal 1.4-6.5 [facility] Comment on above: Performed By: #### C BC #### [facility] [address] [place] [address] Dr. Yaz Nur Neutrophils/100 WBC (Bld) 51.8 % Normal 43.0-75.0 [facility] Comment on above: Performed By: #### C BC #### [facility] [address] [place] [address] Dr. Yaz Nur Platelet mean volume (Bld) [Entitic vol] 10.7 fL Normal 9.5-13.5 [facility] Comment on above: Performed By: #### C BC #### [facility] [address] [place] [address] Dr. Yaz Nur PLT 174 103/ul Normal 150-450 [facility] Comment on above: Performed By: #### C BC #### [facility] [address] [place] [address] Dr. Yaz Nur RBC 5.18 106/ul Normal 4.70-6.10 [facility] Comment on above: Performed By: #### C BC #### [facility] [address] [place] [address] Dr. Yaz Nur WBC 6.2 103/ul Normal 4.0-11.0 [facility] Comment on above: Performed By: #### C BC #### [facility] [address] [place] [address] Dr. Yaz Nur Covid-19 PCR ([facility])on SARS-CoV-2 (COVID-19) RNA SHIRLENE+probe Ql (Unsp spec) Not detected Normal NOT DETECTED [facility] Comment on above: Result Comment: When diagnostic [...] for this test is supported by the [place] of Health and Human Service's declaration that [...] Performed By: #### C MP, BNP #### [facility] [address] [place] [address] Dr. Yaz Nur PROF 14(COMP METB)on 022 Albumin [Mass/Vol] 4.3 g/dL Normal 3.4-5.0 [facility] Comment on above: Performed By: #### B FIELD INSTALLATION TECHNICIAN, CMP, HSTROPN #### [facility] [address] [place] [address] Dr. Yaz Nur Albumin/Globulin [Mass ratio] 1.7 {ratio} Normal [facility] Comment on above: Performed By: #### B FIELD INSTALLATION TECHNICIAN, CMP, HSTROPN #### [facility] [address] [address] [address] Yaz Nur ALP [Catalytic activity/Vol] 102 U/L Normal 46-116 [facility] Comment on above: Performed By: #### B FIELD INSTALLATION TECHNICIAN, CMP, HSTROPN #### [facility] [address] [address] [address] Yaz Nur ALT [Catalytic activity/Vol] 27 U/L Normal 16-63 [facility] Comment on above: Performed By: #### B FIELD INSTALLATION TECHNICIAN, CMP, HSTROPN #### [facility] [address] [address] [address] Yaz Nur Anion gap [Moles/Vol] 10.8 mmol/L Normal [facility] Comment on above: Performed By: #### B FIELD INSTALLATION TECHNICIAN, CMP, HSTROPN #### [facility] [address] [place] [address] Dr. Yaz Nur AST [Catalytic activity/Vol] 33 U/L Normal 15-37 [facility] Comment on above: Performed By: #### B FIELD INSTALLATION TECHNICIAN, CMP, HSTROPN #### [facility] [address] [address] [address] Yaz Nur Bilirubin [Mass/Vol] 1.0 mg/dL Normal 0.2-1.0 [facility] Comment on above: Performed By: #### B FIELD INSTALLATION TECHNICIAN, CMP, HSTROPN #### [facility] [address] [address] [address] Yaz Nur Calcium [Mass/Vol] 9.0 mg/dL Normal 8.5-10.1 [facility] Comment on above: Performed By: #### B FIELD INSTALLATION TECHNICIAN, CMP, HSTROPN #### [facility] [address] [address] [address] Yaz Nur Chloride [Moles/Vol] 105 mmol/L Normal 98-107 [facility] Comment on above: Performed By: #### B FIELD INSTALLATION TECHNICIAN, CMP, HSTROPN #### [facility] [address] [address] [address] Yaz Nur CO2 [Moles/Vol] 28.5 mmol/L Normal 21.0-32.0 [facility] Comment on above: Performed By: #### B FIELD INSTALLATION TECHNICIAN, CMP, HSTROPN #### [facility] [address] [place] [address] Dr. Yaz Nur Creatinine [Mass/Vol] 0.92 mg/dL Normal 0.70-1.30 [facility] Comment on above: Performed By: #### B FIELD INSTALLATION TECHNICIAN, CMP, HSTROPN #### [facility] [address] [address] [address] Yaz Nur EGFR-AF VENEZUELAN >60 Normal >=60 [facility] Comment on above: Performed By: #### B FIELD INSTALLATION TECHNICIAN, CMP, HSTROPN #### [facility] [address] [place] [address] Dr. Yaz Nur EGFR-NON AF VENEZUELAN >60 Normal >=60 [facility] Comment on above: Performed By: #### B FIELD INSTALLATION TECHNICIAN, CMP, HSTROPN #### [facility] [address] [place] [address] Dr. Yaz Nur Globulin (S) [Mass/Vol] 2.6 g/dL Normal [facility] Comment on above: Performed By: #### B FIELD INSTALLATION TECHNICIAN, CMP, HSTROPN #### [facility] [address] [place] [address] Dr. Yaz Nur Glucose [Mass/Vol] 108 mg/dL Critically high 74-106 [facility] Comment on above: Performed By: #### B FIELD INSTALLATION TECHNICIAN, CMP, HSTROPN #### [facility] [address] [place] [address] Dr. Yaz Nur Potassium [Moles/Vol] 4.3 mmol/L Normal 3.5-5.1 [facility] Comment on above: Result Comment: spec imen hemolysed Performed By: #### B FIELD INSTALLATION TECHNICIAN, CMP, HSTROPN #### [facility] [address] [place] [address] Dr. Yaz Nur Protein [Mass/Vol] 6.9 g/dL Normal 6.4-8.2 [facility] Comment on above: Performed By: #### B FIELD INSTALLATION TECHNICIAN, CMP, HSTROPN #### [facility] [address] [place] [address] Dr. Yaz Nur Sodium [Moles/Vol] 140 mmol/L Normal 136-145 [facility] Comment on above: Performed By: #### B FIELD INSTALLATION TECHNICIAN, CMP, HSTROPN #### [facility] [address] [place] [address] Dr. Yaz Nur Urea nitrogen [Mass/Vol] 16.0 mg/dL Normal 7.0-18.0 [facility] Comment on above: Performed By: #### B FIELD INSTALLATION TECHNICIAN, CMP, HSTROPN #### [facility] [address] [place] [address] Dr. Yaz Nur Urea nitrogen/Creatinine [Mass ratio] 17.4 mg/mg Normal [facility] Comment on above: Performed By: #### B FIELD INSTALLATION TECHNICIAN, CMP, HSTROPN #### [facility] [address] [place] [address] Dr. Yaz Nur PROTIMEon 08-17-2022 INR Coag (PPP) [Relative time] 1.03 {INR} Normal [facility] Comment on above: Performed By: #### P T, PTT #### [facility] [address] [place] [address] Dr. Yaz Nur INR GUIDELINES SEE BELOW Normal [facility] Comment on above: Result Comment: DAMON RED INR: 2.0 - 3.0 CONDITIONS NOT LISTED BELOW 2.5 - 3.5 FOR PROSTHETIC HEART VALVE REPLACEMENT 2.5 - 3.5 RECURRENT THROMBOSIS Performed By: #### P T, PTT #### [facility] [address] [place] [address] Dr. Yaz Nur PT Coag (PPP) [Time] 11.1 s Normal 9.0-11.6 [facility] Comment on above: Performed By: #### P T, PTT #### [facility] [address] [place] [address] Dr. Yaz Nur PTTon 08-17-2022 aPTT Coag (Bld) [Time] 27.7 s Normal 22.3-36.2 [facility] Comment on above: Performed By: #### P T, PTT #### [facility] [address] [place], [place] [address] Dr. Yaz Nur TROPONIN, HIGH SENSITIVITYon 08-17-2022 HSTROP 7.5 pg/mL Normal 4.0-76.1 [facility] Comment on above: Result Comment: CUT- OFF POINTS HAVE BEEN ESTABLISHED BASED ON THE FOURTH UNIVERSAL DEFINITIONS OF MYOCARDIAL INFARCTION. THE UPPER REFERENCE LIMIT (URL) OF TROPONIN, DEFINED THE 99TH PERCENTILE OF cTnI DISTRIBUTION IN A REFERENCE POPULATION, HAS BEEN CONFIRMED THE DECISION THRESHOLD FOR AR DIAGNOSIS. Performed By: #### B FIELD INSTALLATION TECHNICIAN, CMP, HSTROPN #### [facility] [address] [place], [place] [address] Dr. Yaz Nur XR CHEST 1 Von [...] CEFERINO VALDOVINOS Date: 2022-08-17 17:22 Normal [facility] Encounters Encounter Date Encounter Type Care Provider Facility Start: 09-12-2022 End: 09-13-[address] STEPHANE SMALLS Facility:[facility] Start: 09-09-2022 End: 09-10-[address] STEPHANE SMALLS Facility:[facility] Start: 08-19-2022 End: 08-19-[address] STEPHANE SMALLS Facility:[facility] Start: 08-17-2022 End: 08-18-[address] STEPHANE SMALLS Facility:[facility] Start: 02-08-2018 End: 02-09-2018 Ambulatory DEFAULT PHYSICIAN Facility:[facility] Payers Date Payer Category Payer Medicare [id number] 1940 Unknown [id number] 1940 Unknown [id number] 1940 Unknown [id number] [id number] 1940 Unknown [id number] Unknown Summary Purpose Family History No Family History Records FoundNo Family History Records Found Advance Directives No Advanced Directives Records FoundNo Advanced Directives Records Found Additional Source Comments (unrecognized sect ion and content) No Status Records FoundNo Status Records Found INFORMATION SOURCE (unrecogn ized section and content) DATE CREATED AUTHOR 05/02/2018 [facility] DATE CREATED AUTHOR AUTHOR'S ORGANIZ ATION 09/16/2022 [facility] FOR RECORDS PERTAINING TO PATIENTS [...] BE BASED ON THE PRIMARY CLINICAL RECORDS. [employer] provides no warranty or guarantee of the accuracy or completeness of information in this document.
[2024-07-26 08:42] LABS: Basophils Absolute Auto 0.1 10^3/uL (0.0-0.1); Eosinophils Absolute Auto 0.4 10^3/uL (0.0-0.7); Eosinophils Percent Auto 6.9 % (0.9-7.0); Hematocrit 48.2 % (42.0-54.0); Hemoglobin 16.3 g/dL (14.0-18.0); Immature Granulocytes Abs Auto 0.01 10^3/uL (0.00-0.03); Immature Granulocytes Pct Auto 0.2 % (0.0-0.5); Lymphocytes Absolute Auto 1.5 10^3/uL (1.2-3.8); Lymphocytes Percent Auto 28.7 % (20.5-60.0); Mean Corpuscular HGB Conc 33.8 g/dL (29.9-35.2); Mean Corpuscular Hemoglobin 30.6 pg (25.9-34.0); Mean Corpuscular Volume 90.6 fL (80.0-94.0); Mean Platelet Volume 9.8 fL (9.5-13.5); Monocytes Absolute Auto 0.6 10^3/uL (0.3-0.8); Monocytes Percent Auto 11.3 % (1.7-12.0); Neutrophils Absolute Auto 2.6 10^3/uL (1.4-6.5); Neutrophils Percent Auto 51.9 % (43.0-75.0); Platelet Count 185 10^3/uL (150-450); Red Blood Count 5.32 10^6/uL (4.70-6.10); White Blood Count 5.1 10^3/uL (4.0-11.0)
[2024-07-26 08:50] LABS: Ammonia 11 umol/L (11-32)
[2024-07-26 09:29] LABS: Free T4 0.69 ng/dL (0.76-1.46)
[2024-07-26 09:30] LABS: Alanine Aminotransferase 31 U/L (16-63); Albumin Globulin Ratio 1.3; Albumin Level 3.9 g/dL (3.4-5.0); Alkaline Phosphatase 81 U/L (46-116); Anion Gap 8.6; Aspartate Amino Transferase 28 U/L (15-37); BUN Creatinine Ratio 17.2; Bilirubin Total 0.7 mg/dL (0.2-1.0); Calcium 8.9 mg/dL (8.5-10.1); Carbon Dioxide 30.6 mmol/L (21.0-32.0); Chloride 104 mmol/L (98-107); Estimated GFR (African America >60 (>=60); Estimated GFR (Non-African Ame 60 (>=60); Globulin 3.1 g/dL; Glucose 92 mg/dL (74-106); Potassium 4.2 mmol/L (3.5-5.1); Sodium 139 mmol/L (136-145); Thyroid Stimulating Hormone 2.163 uIU/mL (0.358-3.740)
== END 2024-07-26 08:14 | disposition home or self-care (01) ==
PROVIDERS: PCP Family Medicine; Visit Provider Family Medicine
DX: R41.3 Other amnesia (principal); I10 Essential (primary) hypertension; E03.9 Hypothyroidism, unspecified; R06.02 Shortness of breath; R53.83 Other fatigue
CPT/HCPCS: 36415; 80053; 82140; 83880; 84439; 84443; 85025

== ENCOUNTER 2024-08-04 07:29 | Outpatient (OUT) | payer MEDICARE, SELFPAY ==
--- NOTE | 2024-08-04 07:32 | MR_ITS ---
[facility] [place] [id number] Patient Name: ESPERANZA POLANCO MRN: [id number] date: 1940 Sex: M Assigned Patient Location: MRI Current Patient Location: MRI Accession/Order Number: [id number] Exam Date: 08/04/2024 07:50 Report Date: 08/04/2024 09:03 At the request of: STEPHANE SMALLS Procedure: MR head/brain wo con MR head/brain wo con, 08/04/2024 7:50 AM EDT INDICATION: Memory Loss, R41.3 COMPARISON: There is no appropriate prior study for comparison. TECHNIQUE: Multiplanar, multisequential MRI images of brain were obtained without injection of contrast. FINDINGS: The cerebral sulci as well as ventricular system are enlarged consistent with mild ex vacuo cerebral volume loss. There is no restricted diffusion. Hyperintensities on T2 and FLAIR images in the lim radiata and centrum semiovale with sparing of U fibers are nonspecific, statistically most likely consistent with microvascular ischemic changes. There is no intracranial mass, mass effect, midline shift, intra or extra-axial fluid collection or large hemorrhage. Normal flow-void in the intracranial vessels is noted. The visualized portions of orbits, mastoid air cells are unremarkable. Scattered mucosal thickening within the paranasal sinuses. MR/MR head/brain wo con IMPRESSION: No acute intracranial process is noted. Mild microvascular ischemic changes. No finding to suggest a typical neurodegenerative process. Electronically authenticated by: HELGA DELGADO Date: 08/04/2024 09:03
--- OUTSIDE RECORDS SUMMARY | 2024-08-04 07:32 | XMS_ITS | CCD ---
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 [address] [place] [address] Dr. Yaz Nur Prostate specific Ag [Mass/Vol] 2.7 ng/mL Normal 0.0-4.0 [facility] Comment on above: Result Comment: Cooper MAY methodology. . According to the [employer] [employer], Serum PSA should decrease and [...] Performed By: #### C MP, BNP #### [facility] [address] [place], [place] [address] Dr. Yaz Nur PSA, Free 1.19 ng/mL Normal N/A [facility] Comment on above: Result Comment: Cooper MAY methodology. Performed By: #### C MP, BNP #### [facility] [address] [place] [address] Dr. Yaz Nur CBC AUTO DIFFon 09-09-2022 BASO # 0.1 103/ul Normal 0.0-0.1 [facility] Comment on above: Performed By: #### C MP, BNP #### [facility] [address] [place] [address] Dr. Yaz Nur Basophils/100 WBC (Bld) 1.0 % Normal 0.2-2.0 [facility] Comment on above: Performed By: #### C MP, BNP #### [facility] [address] [place] [address] Dr. Yaz Nur EO # 0.5 103/ul Normal 0.0-0.7 [facility] Comment on above: Performed By: #### C MP, BNP #### [facility] [address] [place] [address] Dr. Yaz Nur Eosinophils/100 WBC (Bld) 8.8 % Critically high 0.9-7.0 [facility] Comment on above: Performed By: #### C MP, BNP #### [facility] [address] [place] [address] Dr. Yaz Nur Erythrocyte distribution width (RBC) [Ratio] 13.4 % Normal 11.0-15.0 [facility] Comment on above: Performed By: #### C MP, BNP #### [facility] [address] [place] [address] Dr. Yaz Nur Hematocrit (Bld) [Volume fraction] 46.8 % Normal 42.0-54.0 [facility] Comment on above: Performed By: #### C MP, BNP #### [facility] [address] [place] [address] Dr. Yaz Nur Hemoglobin (Bld) [Mass/Vol] 16.2 g/dL Normal 14.0-18.0 [facility] Comment on above: Performed By: #### C MP, BNP #### [facility] [address] [place] [address] Dr. Yaz Nur IG # 0.01 10e3/ul Normal 0.00-0.03 [facility] Comment on above: Performed By: #### C MP, BNP #### [facility] [address] [place] [address] Dr. Yaz Nur IG % 0.2 % Normal 0.0-0.5 [facility] Comment on above: Performed By: #### C MP, BNP #### [facility] [address] [place] [address] Dr. Yaz Nur LYMPH # 1.5 103/ul Normal 1.2-3.8 [facility] Comment on above: Performed By: #### C MP, BNP #### [facility] [address] [place] [address] Dr. Yaz Nur Lymphocytes/100 WBC (Bld) 29.2 % Normal 20.5-60.0 [facility] Comment on above: Performed By: #### C MP, BNP #### [facility] [address] [place] [address] Dr. Yaz Nur MANUAL DIFF REQ NO Normal [facility] Comment on above: Performed By: #### C MP, BNP #### [facility] [address] [place] [address] Dr. Yaz Nur MCH (RBC) [Entitic mass] 31.4 pg Normal 25.9-34.0 [facility] Comment on above: Performed By: #### C MP, BNP #### [facility] [address] [place] [address] Dr. Yaz Nur MCHC (RBC) [Mass/Vol] 34.6 g/dL Normal 29.9-35.2 [facility] Comment on above: Performed By: #### C MP, BNP #### [facility] [address] [place] [address] Dr. Yaz Nur MCV (RBC) [Entitic vol] 90.7 fL Normal 80.0-94.0 [facility] Comment on above: Performed By: #### C MP, BNP #### [facility] [address] [place] [address] Dr. Yaz Nur MONO # 0.6 103/ul Normal 0.3-0.8 [facility] Comment on above: Performed By: #### C MP, BNP #### [facility] [address] [place] [address] Dr. Yaz Nur Monocytes/100 WBC (Bld) 11.2 % Normal 1.7-12.0 [facility] Comment on above: Performed By: #### C MP, BNP #### [facility] [address] [place] [address] Dr. Yaz uNr NEUT # 2.5 103/ul Normal 1.4-6.5 [facility] Comment on above: Performed By: #### C MP, BNP #### [facility] [address] [place] [address] Dr. Yaz Nur Neutrophils/100 WBC (Bld) 49.6 % Normal 43.0-75.0 [facility] Comment on above: Performed By: #### C MP, BNP #### [facility] [address] [place] [address] Dr. Yaz Nur Platelet mean volume (Bld) [Entitic vol] 9.9 fL Normal 9.5-13.5 [facility] Comment on above: Performed By: #### C MP, BNP #### [facility] [address] [place] [address] Dr. Yaz Nur PLT 157 103/ul Normal 150-450 [facility] Comment on above: Performed By: #### C MP, BNP #### [facility] [address] [place] [address] Dr. Yaz Nur RBC 5.16 106/ul Normal 4.70-6.10 [facility] Comment on above: Performed By: #### C MP, BNP #### [facility] [address] [place] [address] Dr. Yaz Nur WBC 5.1 103/ul Normal 4.0-11.0 [facility] Comment on above: Performed By: #### C MP, BNP #### [facility] [address] [place] [address] Dr. Yaz Nur CULTURE URINEon 09-09-2022 CULTURE URINE Culture Observations : LIGHT GROWTH OF MIXED SKIN COCO. NO POTENTIAL PATHOGENS SEEN. Normal [facility] Comment on above: Performed By: #### C MP, BNP #### [facility] [address] [place] [address] Dr. Yaz Nur PROTIMEon 09-09-2022 INR Coag (PPP) [Relative time] 1.06 {INR} Normal [facility] Comment on above: Performed By: #### C MP, BNP #### [facility] [address] [place] [address] Dr. Yaz Nur INR GUIDELINES SEE BELOW Normal [facility] Comment on above: Result Comment: DAMON RED INR: 2.0 - 3.0 CONDITIONS NOT LISTED BELOW 2.5 - 3.5 FOR PROSTHETIC HEART VALVE REPLACEMENT 2.5 - 3.5 RECURRENT THROMBOSIS Performed By: #### C MP, BNP #### [facility] [address] [place] [address] Dr. Yaz Nur PT Coag (PPP) [Time] 11.4 s Normal 9.0-11.6 [facility] Comment on above: Performed By: #### C MP, BNP #### [facility] [address] [place] [address] Dr. Yaz Nur PTTon 09-09-2022 aPTT Coag (Bld) [Time] 30.0 s Normal 22.3-36.2 [facility] Comment on above: Performed By: #### C MP, BNP #### [facility] [address] [place] [address] Dr. Yaz Nur UA RANDOM W/MICROSCOPICon BACTERIA NONE SEEN Normal NONE SEEN [facility] Comment on above: Performed By: #### C MP, BNP #### [facility] [address] [place] [address] Dr. Yaz Nur Bilirubin Ql (U) Negative Normal NEGATIVE [facility] Comment on above: Performed By: #### C MP, BNP #### [facility] [address] [place] [address] Dr. Yaz Nur CAST NONE SEEN Normal NONE SEEN [facility] Comment on above: Performed By: #### C MP, BNP #### [facility] [address] [place] [address] Dr. Yaz Nur Clarity (U) CLEAR Normal CLEAR [facility] Comment on above: Performed By: #### C MP, BNP #### [facility] [address] [place] [address] Dr. Yaz Nur Color (U) YELLOW Normal YELLOW [facility] Comment on above: Performed By: #### C MP, BNP #### [facility] [address] [place] [address] Dr. Yaz Nur Crystals LM Nom (Urine sed) NONE SEEN Normal NONE SEEN [facility] Comment on above: Performed By: #### C MP, BNP #### [facility] [address] [place] [address] Dr. Yaz Nur Epithelial cells LM Ql (Urine sed) RARE Normal NONE SEEN /RARE [facility] Comment on above: Performed By: #### C MP, BNP #### [facility] [address] [place] [address] Dr. Yaz Nur Glucose Ql (U) Negative Normal NEGATIVE [facility] Comment on above: Performed By: #### C MP, BNP #### [facility] [address] [place] [address] Dr. Yaz Nur Hemoglobin Ql (U) Negative Normal NEGATIVE [facility] Comment on above: Performed By: #### C MP, BNP #### [facility] [address] [place] [address] Dr. Yaz Nur Ketones Ql (U) Negative Normal NEGATIVE [facility] Comment on above: Performed By: #### C MP, BNP #### [facility] [address] [place] [address] Dr. Yaz Nur LEUKOCYTES Negative Normal NEGATIVE [facility] Comment on above: Performed By: #### C MP, BNP #### [facility] [address] [place] [address] Dr. Yaz Nur MUCOUS NONE SEEN Normal NONE SEEN [facility] Comment on above: Performed By: #### C MP, BNP #### [facility] [address] [place] [address] Dr. Yaz Nur Nitrite Ql (U) Negative Normal NEGATIVE [facility] Comment on above: Performed By: #### C MP, BNP #### [facility] [address] [place] [address] Dr. Yaz Nur pH (U) 5.5 [pH] Normal 5-9 [facility] Comment on above: Performed By: #### C MP, BNP #### [facility] [address] [place] [address] Dr. Yaz Nur RBC 0-2 Normal 0-2 [facility] Comment on above: Performed By: #### C MP, BNP #### [facility] [address] [place] [address] Dr. Yaz Nur SPEC GRAVITY >=1.030 Abnormal 1.005-<=1.025 [facility] Comment on above: Performed By: #### C MP, BNP #### [facility] [address] [place] [address] Dr. Yaz Nur UA PROTEIN Negative Normal NEGATIVE/ TRACE [facility] Comment on above: Performed By: #### C MP, BNP #### [facility] [address] [place] [address] Dr. Yaz Nur Urobilinogen Qn (U) 0.2 {Joseph'U}/dL Normal 0.2 - 1. 0 [facility] Comment on above: Performed By: #### C MP, BNP #### [facility] [address] [place] [address] Dr. Yaz Nur WBC 0-2 Abnormal NONE SEEN [facility] Comment on above: Performed By: #### C MP, BNP #### [facility] [address] [place] [address] Dr. Yaz Nur BNPon 08-18-2022 Natriuretic peptide B (Bld) [Mass/Vol] 228.0 pg/mL Normal <=1,800.0 [facility] Comment on above: Performed By: #### C MP, BNP #### [facility] [address] [place] [address] Dr. Yaz Nur CARDIAC KANDIS 3-6on 2 CK [Catalytic activity/Vol] 165 U/L Normal 39-308 [facility] Comment on above: Performed By: #### C MREP #### [facility] [address] [place] [address] Dr. Yaz Nur CK.MB [Mass/Vol] 2.85 ng/mL Normal <=3.60 [facility] Comment on above: Performed By: #### C MREP #### [facility] [address] [place] [address] Dr. Yaz Nur HSTROP 6.7 pg/mL Normal 4.0-76.1 [facility] Comment on above: Result Comment: CUT- OFF POINTS HAVE BEEN ESTABLISHED BASED ON THE FOURTH UNIVERSAL DEFINITIONS OF MYOCARDIAL INFARCTION. THE UPPER REFERENCE LIMIT (URL) OF TROPONIN, DEFINED THE 99TH PERCENTILE OF cTnI DISTRIBUTION IN A REFERENCE POPULATION, HAS BEEN CONFIRMED THE DECISION THRESHOLD FOR VT DIAGNOSIS. Performed By: #### C MREP #### [facility] [address] [place] [address] Dr. Yaz Nur CBC AUTO DIFFon 08-18-2022 BASO # 0.1 103/ul Normal 0.0-0.1 [facility] Comment on above: Performed By: #### C BC #### [facility] [address] [place] [address] Dr. Yaz Nur Basophils/100 WBC (Bld) 1.3 % Normal 0.2-2.0 [facility] Comment on above: Performed By: #### C BC #### [facility] [address] [place] [address] Dr. Yaz Nur EO # 0.6 103/ul Normal 0.0-0.7 [facility] Comment on above: Performed By: #### C BC #### [facility] [address] [place] [address] Dr. Yaz Nur Eosinophils/100 WBC (Bld) 9.9 % Critically high 0.9-7.0 [facility] Comment on above: Performed By: #### C BC #### [facility] [address] [place] [address] Dr. Yaz Nur Erythrocyte distribution width (RBC) [Ratio] 13.2 % Normal 11.0-15.0 [facility] Comment on above: Performed By: #### C BC #### [facility] [address] [place] [address] Dr. Yaz Nur Hematocrit (Bld) [Volume fraction] 47.0 % Normal 42.0-54.0 [facility] Comment on above: Performed By: #### C BC #### [facility] [address] [place] [address] Dr. Yaz Nur Hemoglobin (Bld) [Mass/Vol] 15.8 g/dL Normal 14.0-18.0 [facility] Comment on above: Performed By: #### C BC #### [facility] [address] [place] [address] Dr. Yaz Nur IG # 0.02 10e3/ul Normal 0.00-0.03 [facility] Comment on above: Performed By: #### C BC #### [facility] [address] [place] [address] Dr. Yaz Nur IG % 0.3 % Normal 0.0-0.5 [facility] Comment on above: Performed By: #### C BC #### [facility] [address] [place] [address] Dr. Yaz Nur LYMPH # 1.8 103/ul Normal 1.2-3.8 [facility] Comment on above: Performed By: #### C BC #### [facility] [address] [place] [address] Dr. Yaz Nur Lymphocytes/100 WBC (Bld) 28.1 % Normal 20.5-60.0 [facility] Comment on above: Performed By: #### C BC #### [facility] [address] [place] [address] Dr. Yaz Nur MANUAL DIFF REQ NO Normal [facility] Comment on above: Performed By: #### C BC #### [facility] [address] [place] [address] Dr. Yaz Nur MCH (RBC) [Entitic mass] 31.3 pg Normal 25.9-34.0 [facility] Comment on above: Performed By: #### C BC #### [facility] [address] [place] [address] [address] Yaz Nur MCHC (RBC) [Mass/Vol] 33.6 g/dL Normal 29.9-35.2 [facility] Comment on above: Performed By: #### C BC #### [facility] [address] [place] [address] [address] Yaz Nur MCV (RBC) [Entitic vol] 93.1 fL Normal 80.0-94.0 [facility] Comment on above: Performed By: #### C BC #### [facility] [address] [place] [address] Dr. Yaz Nur MONO # 0.6 103/ul Normal 0.3-0.8 [facility] Comment on above: Performed By: #### C BC #### [facility] [address] [place] [address] Dr. Yaz Nur Monocytes/100 WBC (Bld) 9.7 % Normal 1.7-12.0 [facility] Comment on above: Performed By: #### C BC #### [facility] [address] [place] [address] Dr. Yaz Nur NEUT # 3.2 103/ul Normal 1.4-6.5 [facility] Comment on above: Performed By: #### C BC #### [facility] [address] [place] [address] Dr. Yaz Nur Neutrophils/100 WBC (Bld) 50.7 % Normal 43.0-75.0 [facility] Comment on above: Performed By: #### C BC #### [facility] [address] [place] [address] [address] Yaz Nur Platelet mean volume (Bld) [Entitic vol] 9.9 fL Normal 9.5-13.5 [facility] Comment on above: Performed By: #### C BC #### [facility] [address] [place] [address] [address] Yaz Nur PLT 144 103/ul Critically low 150-450 [facility] Comment on above: Performed By: #### C BC #### [facility] [address] [place] [address] [address] Yaz Nur RBC 5.05 106/ul Normal 4.70-6.10 [facility] Comment on above: Performed By: #### C BC #### [facility] [address] [id number] [address] Yaz Nur WBC 6.4 103/ul Normal 4.0-11.0 [facility] Comment on above: Performed By: #### C BC #### [facility] [address] [id number] [address] Yaz Nur ECHOCARDIO M/2D COMPLETEon 1 ECHOCARDIO M/2D COMPLETE Patient: ESPERANZA POLANCO Exam Date: 08/18/2022 : 1940 Gender:M Ordering : DR STEPHANE SMALLS . Admission #: [id number] Family : Order #: [id number] CLICK HERE TO VIEW EXAM ECHOCARDIOGRAM REPORT [...] Jaimes M.D. on 08/22/2022 at 07:53 Normal [facility] PROF 14(COMP METB)on 08-18- 022 Albumin [Mass/Vol] 3.9 g/dL Normal 3.4-5.0 [facility] Comment on above: Performed By: #### C MP, BNP #### [facility] [address] [address] [address] Yaz Nur Albumin/Globulin [Mass ratio] 1.3 {ratio} [facility] Comment on above: Performed By: #### C MP, BNP #### [facility] [address] [place] [address] Dr. Yaz Nur ALP [Catalytic activity/Vol] 94 U/L Normal 46-116 [facility] Comment on above: Performed By: #### C MP, BNP #### [facility] [address] [address] [address] Yaz Nur ALT [Catalytic activity/Vol] 21 U/L Normal 16-63 [facility] Comment on above: Performed By: #### C MP, BNP #### [facility] [address] [address] [address] Yaz Nur Anion gap [Moles/Vol] 8.8 mmol/L Normal [facility] Comment on above: Performed By: #### C MP, BNP #### [facility] [address] [address] [address] Yaz Nur AST [Catalytic activity/Vol] 16 U/L Normal 15-37 [facility] Comment on above: Performed By: #### C MP, BNP #### [facility] [address] [address] [address] Yaz Nur Bilirubin [Mass/Vol] 1.0 mg/dL Normal 0.2-1.0 [facility] Comment on above: Performed By: #### C MP, BNP #### [facility] [address] [address] [address] Yaz Nur Calcium [Mass/Vol] 8.6 mg/dL Normal 8.5-10.1 [facility] Comment on above: Performed By: #### C MP, BNP #### [facility] [address] [place] [address] Dr. Yaz Nur Chloride [Moles/Vol] 106 mmol/L Normal 98-107 [facility] Comment on above: Performed By: #### C MP, BNP #### [facility] [address] [place] [address] Dr. Yaz Nur CO2 [Moles/Vol] 28.5 mmol/L Normal 21.0-32.0 [facility] Comment on above: Performed By: #### C MP, BNP #### [facility] [address] [place] [address] Dr. Yaz Nur Creatinine [Mass/Vol] 1.14 mg/dL Normal 0.70-1.30 [facility] Comment on above: Performed By: #### C MP, BNP #### [facility] [address] [place] [address] Dr. Yaz Nur EGFR-AF GUATEMALAN >60 Normal >=60 [facility] Comment on above: Performed By: #### C MP, BNP #### [facility] [address] [place] [address] Dr. Yaz Nur EGFR-NON AF GUATEMALAN >60 Normal >=60 [facility] Comment on above: Performed By: #### C MP, BNP #### [facility] [address] [place] [address] Dr. Yaz Nur Globulin (S) [Mass/Vol] 2.9 g/dL Normal [facility] Comment on above: Performed By: #### C MP, BNP #### [facility] [address] [place] [address] Dr. Yaz Nur Glucose [Mass/Vol] 82 mg/dL Normal 74-106 [facility] Comment on above: Performed By: #### C MP, BNP #### [facility] [address] [place] [address] Dr. Yaz Nur Potassium [Moles/Vol] 4.3 mmol/L Normal 3.5-5.1 [facility] Comment on above: Performed By: #### C MP, BNP #### [facility] [address] [place] [address] Dr. Yaz Nur Protein [Mass/Vol] 6.8 g/dL Normal 6.4-8.2 The [facility] Comment on above: Performed By: #### C MP, BNP #### [facility] [address] [place] [address] Dr. Yaz Nur Sodium [Moles/Vol] 139 mmol/L Normal 136-145 [facility] Comment on above: Performed By: #### C MP, BNP #### [facility] [address] [place] [address] Dr. Yaz Nur Urea nitrogen [Mass/Vol] 15.0 mg/dL Normal 7.0-18.0 [facility] Comment on above: Performed By: #### C MP, BNP #### [facility] [address] [place] [address] Dr. Yaz Nur Urea nitrogen/Creatinine [Mass ratio] 13.2 mg/mg Normal [facility] Comment on above: Performed By: #### C MP, BNP #### [facility] [address] [place] [address] Dr. Yaz Nur BNPon 08-17-2022 Natriuretic peptide B (Bld) [Mass/Vol] 274.0 pg/mL Normal <=1,800.0 [facility] Comment on above: Performed By: #### B DELIVERY ARCHITECT, CMP, HSTROPN #### [facility] [address] [place] [address] Dr. Yaz Nur CARDIAC KANDIS 3-6on 2 CK [Catalytic activity/Vol] 190 U/L Normal 39-308 [facility] Comment on above: Performed By: #### C MP, BNP #### [facility] [address] [place] [address] Dr. Yaz Nur CK.MB [Mass/Vol] 3.22 ng/mL Normal <=3.60 [facility] Comment on above: Performed By: #### C MP, BNP #### [facility] [address] [place] [address] Dr. Yaz Nur HSTROP 7.3 pg/mL Normal 4.0-76.1 [facility] Comment on above: Result Comment: CUT- OFF POINTS HAVE BEEN ESTABLISHED BASED ON THE FOURTH UNIVERSAL DEFINITIONS OF MYOCARDIAL INFARCTION. THE UPPER REFERENCE LIMIT (URL) OF TROPONIN, DEFINED THE 99TH PERCENTILE OF cTnI DISTRIBUTION IN A REFERENCE POPULATION, HAS BEEN CONFIRMED THE DECISION THRESHOLD FOR [place] DIAGNOSIS. Performed By: #### C MP, BNP #### [facility] [address] [place] [address] Dr. Yaz Nur CBC AUTO DIFFon 08-17-2022 BASO # 0.1 103/ul Normal 0.0-0.1 [facility] Comment on above: Performed By: #### C BC #### [facility] [address] [place] [address] Dr. Yaz Nur Basophils/100 WBC (Bld) 1.5 % Normal 0.2-2.0 [facility] Comment on above: Performed By: #### C BC #### [facility] [address] [place] [address] Dr. Yaz Nur EO # 0.6 103/ul Normal 0.0-0.7 [facility] Comment on above: Performed By: #### C BC #### [facility] [address] [place] [address] Dr. Yaz Nur Eosinophils/100 WBC (Bld) 9.1 % Critically high 0.9-7.0 [facility] Comment on above: Performed By: #### C BC #### [facility] [address] [place] [address] Dr. Yaz Nur Erythrocyte distribution width (RBC) [Ratio] 13.2 % Normal 11.0-15.0 [facility] Comment on above: Performed By: #### C BC #### [facility] [address] [place] [address] Dr. Yaz Nur Hematocrit (Bld) [Volume fraction] 47.2 % Normal 42.0-54.0 [facility] Comment on above: Performed By: #### C BC #### [facility] [address] [place] [address] Dr. Yaz Nur Hemoglobin (Bld) [Mass/Vol] 16.2 g/dL Normal 14.0-18.0 [facility] Comment on above: Performed By: #### C BC #### [facility] [address] [place] [address] Dr. Yaz Nur IG # 0.02 10e3/ul Normal 0.00-0.03 [facility] Comment on above: Performed By: #### C BC #### [facility] [address] [place] [address] Dr. Yaz Nur IG % 0.3 % Normal 0.0-0.5 [facility] Comment on above: Performed By: #### C BC #### [facility] [address] [place] [address] Dr. Yaz Nur LYMPH # 1.7 103/ul Normal 1.2-3.8 [facility] Comment on above: Performed By: #### C BC #### [facility] [address] [place] [address] Dr. Yaz Nur Lymphocytes/100 WBC (Bld) 27.1 % Normal 20.5-60.0 [facility] Comment on above: Performed By: #### C BC #### [facility] [address] [place] [address] Dr. Yaz Nur MANUAL DIFF REQ NO Normal [facility] Comment on above: Performed By: #### C BC #### [facility] [address] [place] [address] Dr. Yaz Nur MCH (RBC) [Entitic mass] 31.3 pg Normal 25.9-34.0 [facility] Comment on above: Performed By: #### C BC #### [facility] [address] [place] [address] Dr. Yaz Nur MCHC (RBC) [Mass/Vol] 34.3 g/dL Normal 29.9-35.2 [facility] Comment on above: Performed By: #### C BC #### [facility] [address] [address] [address] Yaz Nur MCV (RBC) [Entitic vol] 91.1 fL Normal 80.0-94.0 [facility] Comment on above: Performed By: #### C BC #### [facility] [address] [address] [address] Yaz Nur MONO # 0.6 103/ul Normal 0.3-0.8 [facility] Comment on above: Performed By: #### C BC #### [facility] [address] [place] [address] Dr. Yaz Nur Monocytes/100 WBC (Bld) 10.2 % Normal 1.7-12.0 [facility] Comment on above: Performed By: #### C BC #### [facility] [address] [place] [address] Dr. Yaz Nur NEUT # 3.2 103/ul Normal 1.4-6.5 [facility] Comment on above: Performed By: #### C BC #### [facility] [address] [place] [address] Dr. Yaz Nur Neutrophils/100 WBC (Bld) 51.8 % Normal 43.0-75.0 [facility] Comment on above: Performed By: #### C BC #### [facility] [address] [place] [address] Dr. Yaz Nur Platelet mean volume (Bld) [Entitic vol] 10.7 fL Normal 9.5-13.5 [facility] Comment on above: Performed By: #### C BC #### [facility] [address] [place] [address] Dr. Yaz Nur PLT 174 103/ul Normal 150-450 [facility] Comment on above: Performed By: #### C BC #### [facility] [address] [place] [address] Dr. Yaz Nur RBC 5.18 106/ul Normal 4.70-6.10 [facility] Comment on above: Performed By: #### C BC #### [facility] [address] [place] [address] Dr. Yaz Nur WBC 6.2 103/ul Normal 4.0-11.0 [facility] Comment on above: Performed By: #### C BC #### [facility] [address] [place] [address] Dr. Yaz Nur Covid-19 PCR ([facility])on SARS-CoV-2 (COVID-19) RNA SHIRLENE+probe Ql (Unsp spec) Not detected Normal NOT DETECTED [facility] Comment on above: Result Comment: When [...] for this test is supported by the [place] of Health and Human Service's declaration that [...] Performed By: #### C MP, BNP #### [facility] [address] [place] [address] Dr. Yaz Nur PROF 14(COMP METB)on 022 Albumin [Mass/Vol] 4.3 g/dL Normal 3.4-5.0 [facility] Comment on above: Performed By: #### B DELIVERY ARCHITECT, CMP, HSTROPN #### [facility] [address] [place] [address] Dr. Yaz Nur Albumin/Globulin [Mass ratio] 1.7 {ratio} Normal [facility] Comment on above: Performed By: #### B DELIVERY ARCHITECT, CMP, HSTROPN #### [facility] [address] [address] [address] Yaz Nur ALP [Catalytic activity/Vol] 102 U/L Normal 46-116 [facility] Comment on above: Performed By: #### B DELIVERY ARCHITECT, CMP, HSTROPN #### [facility] [address] [address] [address] Yaz Nur ALT [Catalytic activity/Vol] 27 U/L Normal 16-63 [facility] Comment on above: Performed By: #### B DELIVERY ARCHITECT, CMP, HSTROPN #### [facility] [address] [address] [address] Yaz Nur Anion gap [Moles/Vol] 10.8 mmol/L Normal [facility] Comment on above: Performed By: #### B DELIVERY ARCHITECT, CMP, HSTROPN #### [facility] [address] [place] [address] Dr. Yaz Nur AST [Catalytic activity/Vol] 33 U/L Normal 15-37 [facility] Comment on above: Performed By: #### B DELIVERY ARCHITECT, CMP, HSTROPN #### [facility] [address] [address] [address] Yaz Nur Bilirubin [Mass/Vol] 1.0 mg/dL Normal 0.2-1.0 [facility] Comment on above: Performed By: #### B DELIVERY ARCHITECT, CMP, HSTROPN #### [facility] [address] [address] [address] Yaz Nur Calcium [Mass/Vol] 9.0 mg/dL Normal 8.5-10.1 [facility] Comment on above: Performed By: #### B DELIVERY ARCHITECT, CMP, HSTROPN #### [facility] [address] [address] [address] Yaz Nur Chloride [Moles/Vol] 105 mmol/L Normal 98-107 [facility] Comment on above: Performed By: #### B DELIVERY ARCHITECT, CMP, HSTROPN #### [facility] [address] [address] [address] Yaz Nur CO2 [Moles/Vol] 28.5 mmol/L Normal 21.0-32.0 [facility] Comment on above: Performed By: #### B DELIVERY ARCHITECT, CMP, HSTROPN #### [facility] [address] [place] [address] Dr. Yaz Nur Creatinine [Mass/Vol] 0.92 mg/dL Normal 0.70-1.30 [facility] Comment on above: Performed By: #### B DELIVERY ARCHITECT, CMP, HSTROPN #### [facility] [address] [address] [address] Yaz Nur EGFR-AF GUATEMALAN >60 Normal >=60 [facility] Comment on above: Performed By: #### B DELIVERY ARCHITECT, CMP, HSTROPN #### [facility] [address] [place] [address] Dr. Yaz Nur EGFR-NON AF GUATEMALAN >60 Normal >=60 [facility] Comment on above: Performed By: #### B DELIVERY ARCHITECT, CMP, HSTROPN #### [facility] [address] [place] [address] Dr. Yaz Nur Globulin (S) [Mass/Vol] 2.6 g/dL Normal [facility] Comment on above: Performed By: #### B DELIVERY ARCHITECT, CMP, HSTROPN #### [facility] [address] [place] [address] Dr. Yaz Nur Glucose [Mass/Vol] 108 mg/dL Critically high 74-106 [facility] Comment on above: Performed By: #### B DELIVERY ARCHITECT, CMP, HSTROPN #### [facility] [address] [place] [address] Dr. Yaz Nur Potassium [Moles/Vol] 4.3 mmol/L Normal 3.5-5.1 [facility] Comment on above: Result Comment: spec imen hemolysed Performed By: #### B DELIVERY ARCHITECT, CMP, HSTROPN #### [facility] [address] [place] [address] Dr. Yza Nur Protein [Mass/Vol] 6.9 g/dL Normal 6.4-8.2 [facility] Comment on above: Performed By: #### B DELIVERY ARCHITECT, CMP, HSTROPN #### [facility] [address] [place] [address] Dr. Yaz Nur Sodium [Moles/Vol] 140 mmol/L Normal 136-145 [facility] Comment on above: Performed By: #### B DELIVERY ARCHITECT, CMP, HSTROPN #### [facility] [address] [place] [address] Dr. Yaz Nur Urea nitrogen [Mass/Vol] 16.0 mg/dL Normal 7.0-18.0 [facility] Comment on above: Performed By: #### B DELIVERY ARCHITECT, CMP, HSTROPN #### [facility] [address] [place] [address] Dr. Yaz Nur Urea nitrogen/Creatinine [Mass ratio] 17.4 mg/mg Normal [facility] Comment on above: Performed By: #### B DELIVERY ARCHITECT, CMP, HSTROPN #### [facility] [address] [place] [address] Dr. Yaz Nur PROTIMEon 08-17-2022 INR Coag (PPP) [Relative time] 1.03 {INR} Normal [facility] Comment on above: Performed By: #### P T, PTT #### [facility] [address] [place] [address] Dr. Yaz Nur INR GUIDELINES SEE BELOW Normal [facility] Comment on above: Result Comment: DAMON RED INR: 2.0 - 3.0 CONDITIONS NOT LISTED BELOW 2.5 - 3.5 FOR PROSTHETIC HEART VALVE REPLACEMENT 2.5 - 3.5 RECURRENT THROMBOSIS Performed By: #### P T, PTT #### [facility] [address] [place] [address] Dr. Yaz Nur PT Coag (PPP) [Time] 11.1 s Normal 9.0-11.6 [facility] Comment on above: Performed By: #### P T, PTT #### [facility] [address] [place] [address] Dr. Yaz Nur PTTon 08-17-2022 aPTT Coag (Bld) [Time] 27.7 s Normal 22.3-36.2 [facility] Comment on above: Performed By: #### P T, PTT #### [facility] [address] [place], [place] [address] Dr. Yaz Nur TROPONIN, HIGH SENSITIVITYon 08-17-2022 HSTROP 7.5 pg/mL Normal 4.0-76.1 [facility] Comment on above: Result Comment: CUT- OFF POINTS HAVE BEEN ESTABLISHED BASED ON THE FOURTH UNIVERSAL DEFINITIONS OF MYOCARDIAL INFARCTION. THE UPPER REFERENCE LIMIT (URL) OF TROPONIN, DEFINED THE 99TH PERCENTILE OF cTnI DISTRIBUTION IN A REFERENCE POPULATION, HAS BEEN CONFIRMED THE DECISION THRESHOLD FOR [place] DIAGNOSIS. Performed By: #### B DELIVERY ARCHITECT, CMP, HSTROPN #### [facility] [address] [place], [place] [address] Dr. Yaz Nur XR CHEST 1 Von [...] CEFERINO VALDOVINOS Date: 2022-08-17 17:22 Normal [facility] Encounters Encounter Date Encounter Type Care Provider Facility Start: 09-12-2022 End: 09-13-[address] STEPHANE SMALLS Facility:[facility] Start: 09-09-2022 End: 09-10-[address] STEPHANE SMALLS Facility:[facility] Start: 08-19-2022 End: 08-19-[address] STEPHANE SMALLS Facility:[facility] Start: 08-17-2022 End: 08-18-[address] STEPHANE SMALLS Facility:[facility] Start: 02-08-2018 End: 02-09-2018 Ambulatory DEFAULT PHYSICIAN Facility:[facility] Payers Date Payer Category Payer Medicare [id number] 1940 Unknown [id number] 1940 Unknown [id number] 1940 Unknown [id number] 1940 Unknown [id number] Unknown Summary Purpose Family History No Family History Records FoundNo Family History Records Found Advance Directives No Advanced Directives Records FoundNo Advanced Directives Records Found Additional Source Comments (unrecognized sect ion and content) No Status Records FoundNo Status Records Found INFORMATION SOURCE (unrecogn ized section and content) DATE CREATED AUTHOR 05/02/2018 [facility] DATE CREATED AUTHOR AUTHOR'S ORGANIZ ATION 09/16/2022 [facility] FOR RECORDS PERTAINING TO PATIENTS WHO [...] BE BASED ON THE PRIMARY CLINICAL RECORDS. [employer] provides no warranty or guarantee of the accuracy or completeness of information in this document.
== END 2024-08-04 07:30 | disposition home or self-care (01) ==
LOC: MRI 07:30
PROVIDERS: PCP Family Medicine; Visit Provider Family Medicine
DX: R41.3 Other amnesia (principal)
CPT/HCPCS: 70551

== ENCOUNTER 2024-09-28 22:40 | Observation (INO) | payer MEDICARE, SELFPAY ==
[2024-09-28] VITALS (12 sets, daily range): BP systolic 90–165; BP diastolic 70–108; PULSE 94–114; TEMP 36.5; O2SAT 96–97; BMI 28.1
--- OUTSIDE RECORDS SUMMARY | 2024-09-28 22:45 | XMS_ITS | CCD ---
Author Organization [facility] Care Team Providers Care Body Man Name Role Phone PHYSICIAN, DEFAULT Unavailable Unavailable PHYSICIAN, DEFAULT Unavailable Unavailable SERINA, DR CALDERÓN Primary Care Unavailable HAY, DR HAMMER Admitting Unavailable HAY, DR HAMMER Attending Unavailable SERINA, DR CALDERÓN Admitting Unavailable SERINA, DR CALDERÓN Attending Unavailable SERINA, DR CALDERÓN Primary Care Unavailable SERINA, DR CALDERNÓ Consulting Unavailable ZIEBER, DR BERNIE Jacobs Consulting [...] (1 source) Colestipol Drug Allergy [facility] Repository Problems Problem Classification Problem Date Documented Date Episodic/Chronic Calculus of urinary tract (2 sources) Calculus of kidney; Translations: [Personal history of urinary calculi] Onset: 2 Episodic Cardiac dysrhythmias (1 source) Bradycardia, unspecified; Translations: [BRADYCARDIA UNSPECIFIED] Onset: 2 Episodic Coronary atherosclerosis and other heart disease (2 sources) Atherosclerotic heart disease of citizen [place] coronary artery without angina pectoris; Translations: [Old [...] 2 Episodic Other aftercare (1 source) Other long term care pharmacist (current) drug therapy; Translations: [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 Yaz Nur Prostate specific Ag [Mass/Vol] 2.7 ng/mL Normal 0.0-4.0 [facility] Comment on above: Result Comment: Cooper MAY methodology. . According to the [place] [employer], Serum PSA should decrease and [...] By: #### C MP, BNP #### [facility] [address] [place], [place] [address] Dr. Yaz Nur PSA, Free 1.19 ng/mL Normal N/A [facility] Comment on above: Result Comment: Cooper MAY methodology. Performed By: #### C MP, BNP #### [facility] [address] [place] [address] Dr. Yaz Nur CBC AUTO DIFFon 09-09-2022 BASO # 0.1 103/ul Normal 0.0-0.1 [facility] Comment on above: Performed By: #### C MP, BNP #### [facility] [address] [place] [address] Dr. Yaz Nur Basophils/100 WBC (Bld) 1.0 % Normal 0.2-2.0 [facility] Comment on above: Performed By: #### C MP, BNP #### [facility] [address] [place] [address] Dr. Yaz Nur EO # 0.5 103/ul Normal 0.0-0.7 [facility] Comment on above: Performed By: #### C MP, BNP #### [facility] [address] [place] [address] Dr. Yaz Nur Eosinophils/100 WBC (Bld) 8.8 % Critically high 0.9-7.0 [facility] Comment on above: Performed By: #### C MP, BNP #### [facility] [address] [place] [address] Dr. Yaz Nur Erythrocyte distribution width (RBC) [Ratio] 13.4 % Normal 11.0-15.0 [facility] Comment on above: Performed By: #### C MP, BNP #### [facility] [address] [place] [address] Dr. Yaz Nur Hematocrit (Bld) [Volume fraction] 46.8 % Normal 42.0-54.0 [facility] Comment on above: Performed By: #### C MP, BNP #### [facility] [address] [place] [address] Dr. Yaz Nur Hemoglobin (Bld) [Mass/Vol] 16.2 g/dL Normal 14.0-18.0 [facility] Comment on above: Performed By: #### C MP, BNP #### [facility] [address] [place] [address] Dr. Yaz Nur IG # 0.01 10e3/ul Normal 0.00-0.03 [facility] Comment on above: Performed By: #### C MP, BNP #### [facility] [address] [place] [address] Dr. Yaz Nur IG % 0.2 % Normal 0.0-0.5 [facility] Comment on above: Performed By: #### C MP, BNP #### [facility] [address] [place] [address] Dr. Yaz Nur LYMPH # 1.5 103/ul Normal 1.2-3.8 [facility] Comment on above: Performed By: #### C MP, BNP #### [facility] [address] [place] [address] Dr. Yaz Nur Lymphocytes/100 WBC (Bld) 29.2 % Normal 20.5-60.0 [facility] Comment on above: Performed By: #### C MP, BNP #### [facility] [address] [place] [address] Dr. Yaz Nur MANUAL DIFF REQ NO Normal [facility] Comment on above: Performed By: #### C MP, BNP #### [facility] [address] [place] [address] Dr. Yaz Nur MCH (RBC) [Entitic mass] 31.4 pg Normal 25.9-34.0 [facility] Comment on above: Performed By: #### C MP, BNP #### [facility] [address] [place] [address] Dr. Yaz Nur MCHC (RBC) [Mass/Vol] 34.6 g/dL Normal 29.9-35.2 [facility] Comment on above: Performed By: #### C MP, BNP #### [facility] [address] [place] [address] Dr. Yaz Nur MCV (RBC) [Entitic vol] 90.7 fL Normal 80.0-94.0 [facility] Comment on above: Performed By: #### C MP, BNP #### [facility] [address] [place] [address] Dr. Yaz Nur MONO # 0.6 103/ul Normal 0.3-0.8 [facility] Comment on above: Performed By: #### C MP, BNP #### [facility] [address] [place] [address] Dr. Yaz Nur Monocytes/100 WBC (Bld) 11.2 % Normal 1.7-12.0 [facility] Comment on above: Performed By: #### C MP, BNP #### [facility] [address] [place] [address] Dr. Yaz Nur NEUT # 2.5 103/ul Normal 1.4-6.5 [facility] Comment on above: Performed By: #### C MP, BNP #### [facility] [address] [place] [address] Dr. Yaz Nur Neutrophils/100 WBC (Bld) 49.6 % Normal 43.0-75.0 [facility] Comment on above: Performed By: #### C MP, BNP #### [facility] [address] [place] [address] Dr. Yaz Nur Platelet mean volume (Bld) [Entitic vol] 9.9 fL Normal 9.5-13.5 [facility] Comment on above: Performed By: #### C MP, BNP #### [facility] [address] [place] [address] Dr. Yaz Nur PLT 157 103/ul Normal 150-450 [facility] Comment on above: Performed By: #### C MP, BNP #### [facility] [address] [place] [address] Dr. Yaz Nur RBC 5.16 106/ul Normal 4.70-6.10 [facility] Comment on above: Performed By: #### C MP, BNP #### [facility] [address] [place] [address] Dr. Yaz Nur WBC 5.1 103/ul Normal 4.0-11.0 [facility] Comment on above: Performed By: #### C MP, BNP #### [facility] [address] [place] [address] Dr. Yaz Nur CULTURE URINEon 09-09-2022 CULTURE URINE Culture Observations : LIGHT GROWTH OF MIXED SKIN COCO. NO POTENTIAL PATHOGENS SEEN. Normal [facility] Comment on above: Performed By: #### C MP, BNP #### [facility] [address] [place] [address] Dr. Yaz Nur PROTIMEon 09-09-2022 INR Coag (PPP) [Relative time] 1.06 {INR} Normal [facility] Comment on above: Performed By: #### C MP, BNP #### [facility] [address] [place] [address] Dr. Yaz Nur INR GUIDELINES SEE BELOW Normal [facility] Comment on above: Result Comment: DAMON RED INR: 2.0 - 3.0 CONDITIONS NOT LISTED BELOW 2.5 - 3.5 FOR PROSTHETIC HEART VALVE REPLACEMENT 2.5 - 3.5 RECURRENT THROMBOSIS Performed By: #### C MP, BNP #### [facility] [address] [place] [address] Dr. Yaz Nur PT Coag (PPP) [Time] 11.4 s Normal 9.0-11.6 [facility] Comment on above: Performed By: #### C MP, BNP #### [facility] [address] [place] [address] Dr. Yaz Nur PTTon 09-09-2022 aPTT Coag (Bld) [Time] 30.0 s Normal 22.3-36.2 [facility] Comment on above: Performed By: #### C MP, BNP #### [facility] [address] [place] [address] Dr. Yaz Nur UA RANDOM W/MICROSCOPICon BACTERIA NONE SEEN Normal NONE SEEN [facility] Comment on above: Performed By: #### C MP, BNP #### [facility] [address] [place] [address] Dr. Yaz Nur Bilirubin Ql (U) Negative Normal NEGATIVE [facility] Comment on above: Performed By: #### C MP, BNP #### [facility] [address] [place] [address] Dr. Yaz Nur CAST NONE SEEN Normal NONE SEEN [facility] Comment on above: Performed By: #### C MP, BNP #### [facility] [address] [place] [address] Dr. Yaz Nur Clarity (U) CLEAR Normal CLEAR [facility] Comment on above: Performed By: #### C MP, BNP #### [facility] [address] [place] [address] Dr. Yaz Nur Color (U) YELLOW Normal YELLOW [facility] Comment on above: Performed By: #### C MP, BNP #### [facility] [address] [place] [address] Dr. Yaz Nur Crystals LM Nom (Urine sed) NONE SEEN Normal NONE SEEN [facility] Comment on above: Performed By: #### C MP, BNP #### [facility] [address] [place] [address] Dr. Yaz Nur Epithelial cells LM Ql (Urine sed) RARE Normal NONE SEEN /RARE [facility] Comment on above: Performed By: #### C MP, BNP #### [facility] [address] [place] [address] Dr. Yaz Nur Glucose Ql (U) Negative Normal NEGATIVE [facility] Comment on above: Performed By: #### C MP, BNP #### [facility] [address] [place] [address] Dr. Yaz Nur Hemoglobin Ql (U) Negative Normal NEGATIVE [facility] Comment on above: Performed By: #### C MP, BNP #### [facility] [address] [place] [address] Dr. Yaz Nur Ketones Ql (U) Negative Normal NEGATIVE [facility] Comment on above: Performed By: #### C MP, BNP #### [facility] [address] [place] [address] Dr. Yaz Nur LEUKOCYTES Negative Normal NEGATIVE [facility] Comment on above: Performed By: #### C MP, BNP #### [facility] [address] [place] [address] Dr. Yaz Nur MUCOUS NONE SEEN Normal NONE SEEN [facility] Comment on above: Performed By: #### C MP, BNP #### [facility] [address] [place] [address] Dr. Yaz Nur Nitrite Ql (U) Negative Normal NEGATIVE [facility] Comment on above: Performed By: #### C MP, BNP #### [facility] [address] [place] [address] Dr. Yaz Nur pH (U) 5.5 [pH] Normal 5-9 [facility] Comment on above: Performed By: #### C MP, BNP #### [facility] [address] [place] [address] Dr. Yaz Nur RBC 0-2 Normal 0-2 [facility] Comment on above: Performed By: #### C MP, BNP #### [facility] [address] [place] [address] Dr. Yaz Nur SPEC GRAVITY >=1.030 Abnormal 1.005-<=1.025 [facility] Comment on above: Performed By: #### C MP, BNP #### [facility] [address] [place] [address] Dr. Yaz Nur UA PROTEIN Negative Normal NEGATIVE/ TRACE [facility] Comment on above: Performed By: #### C MP, BNP #### [facility] [address] [place] [address] Dr. Yaz Nur Urobilinogen Qn (U) 0.2 {Joseph'U}/dL Normal 0.2 - 1. 0 [facility] Comment on above: Performed By: #### C MP, BNP #### [facility] [address] [place] [address] Dr. Yaz Nur WBC 0-2 Abnormal NONE SEEN [facility] Comment on above: Performed By: #### C MP, BNP #### [facility] [address] [place] [address] Dr. Yaz Nur BNPon 08-18-2022 Natriuretic peptide B (Bld) [Mass/Vol] 228.0 pg/mL Normal <=1,800.0 [facility] Comment on above: Performed By: #### C MP, BNP #### [facility] [address] [place] [address] Dr. Yaz Nur CARDIAC KANDIS 3-6on 2 CK [Catalytic activity/Vol] 165 U/L Normal 39-308 [facility] Comment on above: Performed By: #### C MREP #### [facility] [address] [place] [address] Dr. Yaz Nur CK.MB [Mass/Vol] 2.85 ng/mL Normal <=3.60 [facility] Comment on above: Performed By: #### C MREP #### [facility] [address] [place] [address] Dr. Yaz Nur HSTROP 6.7 pg/mL Normal 4.0-76.1 [facility] Comment on above: Result Comment: CUT- OFF POINTS HAVE BEEN ESTABLISHED BASED ON THE FOURTH UNIVERSAL DEFINITIONS OF MYOCARDIAL INFARCTION. THE UPPER REFERENCE LIMIT (URL) OF TROPONIN, DEFINED THE 99TH PERCENTILE OF cTnI DISTRIBUTION IN A REFERENCE POPULATION, HAS BEEN CONFIRMED THE DECISION THRESHOLD FOR LA DIAGNOSIS. Performed By: #### C MREP #### [facility] [address] [place] [address] Dr. Yaz Nur CBC AUTO DIFFon 08-18-2022 BASO # 0.1 103/ul Normal 0.0-0.1 [facility] Comment on above: Performed By: #### C BC #### [facility] [address] [place] [address] Dr. aYz Nur Basophils/100 WBC (Bld) 1.3 % Normal 0.2-2.0 [facility] Comment on above: Performed By: #### C BC #### [facility] [address] [place] [address] Dr. Yaz Nur EO # 0.6 103/ul Normal 0.0-0.7 [facility] Comment on above: Performed By: #### C BC #### [facility] [address] [place] [address] Dr. Yaz Nur Eosinophils/100 WBC (Bld) 9.9 % Critically high 0.9-7.0 [facility] Comment on above: Performed By: #### C BC #### [facility] [address] [place] [address] Dr. Yaz Nur Erythrocyte distribution width (RBC) [Ratio] 13.2 % Normal 11.0-15.0 [facility] Comment on above: Performed By: #### C BC #### [facility] [address] [place] [address] Dr. Yaz Nur Hematocrit (Bld) [Volume fraction] 47.0 % Normal 42.0-54.0 [facility] Comment on above: Performed By: #### C BC #### [facility] [address] [place] [address] Dr. Yaz Nur Hemoglobin (Bld) [Mass/Vol] 15.8 g/dL Normal 14.0-18.0 [facility] Comment on above: Performed By: #### C BC #### [facility] [address] [place] [address] Dr. Yaz Nur IG # 0.02 10e3/ul Normal 0.00-0.03 [facility] Comment on above: Performed By: #### C BC #### [facility] [address] [place] [address] Dr. Yaz Nur IG % 0.3 % Normal 0.0-0.5 [facility] Comment on above: Performed By: #### C BC #### [facility] [address] [place] [address] Dr. Yaz Nur LYMPH # 1.8 103/ul Normal 1.2-3.8 [facility] Comment on above: Performed By: #### C BC #### [facility] [address] [place] [address] Dr. Yaz Nur Lymphocytes/100 WBC (Bld) 28.1 % Normal 20.5-60.0 [facility] Comment on above: Performed By: #### C BC #### [facility] [address] [place] [address] Dr. Yaz Nur MANUAL DIFF REQ NO Normal [facility] Comment on above: Performed By: #### C BC #### [facility] [address] [place] [address] Dr. Yaz Nur MCH (RBC) [Entitic mass] 31.3 pg Normal 25.9-34.0 [facility] Comment on above: Performed By: #### C BC #### [facility] [address] [place] [address] [address] Yaz Nur MCHC (RBC) [Mass/Vol] 33.6 g/dL Normal 29.9-35.2 [facility] Comment on above: Performed By: #### C BC #### [facility] [address] [place] [address] [address] Yaz Nur MCV (RBC) [Entitic vol] 93.1 fL Normal 80.0-94.0 [facility] Comment on above: Performed By: #### C BC #### [facility] [address] [place] [address] Dr. Yaz Nur MONO # 0.6 103/ul Normal 0.3-0.8 [facility] Comment on above: Performed By: #### C BC #### [facility] [address] [place] [address] Dr. Yaz Nur Monocytes/100 WBC (Bld) 9.7 % Normal 1.7-12.0 [facility] Comment on above: Performed By: #### C BC #### [facility] [address] [place] [address] Dr. Yaz Nur NEUT # 3.2 103/ul Normal 1.4-6.5 [facility] Comment on above: Performed By: #### C BC #### [facility] [address] [place] [address] Dr. Yaz Nur Neutrophils/100 WBC (Bld) 50.7 % Normal 43.0-75.0 [facility] Comment on above: Performed By: #### C BC #### [facility] [address] [place] [address] [address] Yaz Nur Platelet mean volume (Bld) [Entitic vol] 9.9 fL Normal 9.5-13.5 [facility] Comment on above: Performed By: #### C BC #### [facility] [address] [place] [address] [address] Yaz Nur PLT 144 103/ul Critically low 150-450 [facility] Comment on above: Performed By: #### C BC #### [facility] [address] [place] [address] [address] Yaz Nur RBC 5.05 106/ul Normal 4.70-6.10 [facility] Comment on above: Performed By: #### C BC #### [facility] [address] [id number] Yaz Nur WBC 6.4 103/ul Normal 4.0-11.0 [facility] Comment on above: Performed By: #### C BC #### [facility] [id number] Yza Nur ECHOCARDIO M/2D COMPLETEon 1 ECHOCARDIO M/2D COMPLETE Patient: ESPERANZA POLANCO Exam Date: 08/18/2022 : 1940 Gender:M Ordering : DR STEPHANE SMALLS . Admission #: [id number] Family : Order #: [id number] CLICK HERE TO VIEW EXAM ECHOCARDIOGRAM REPORT [...] Jaimes M.D. on 08/22/2022 at 07:53 Normal [facility] PROF 14(COMP METB)on 08-18- 022 Albumin [Mass/Vol] 3.9 g/dL Normal 3.4-5.0 [facility] Comment on above: Performed By: #### C MP, BNP #### [facility] [address] [place] [address] [address] Yaz Nur Albumin/Globulin [Mass ratio] 1.3 {ratio} [facility] Comment on above: Performed By: #### C MP, BNP #### [facility] [address] [place] [address] Dr. Yaz Nur ALP [Catalytic activity/Vol] 94 U/L Normal 46-116 [facility] Comment on above: Performed By: #### C MP, BNP #### [facility] [address] [place] [address] [address] Yaz Nur ALT [Catalytic activity/Vol] 21 U/L Normal 16-63 [facility] Comment on above: Performed By: #### C MP, BNP #### [facility] [address] [place] [address] [address] Yaz Nur Anion gap [Moles/Vol] 8.8 mmol/L Normal [facility] Comment on above: Performed By: #### C MP, BNP #### [facility] [address] [place] [address] [address] Yaz Nur AST [Catalytic activity/Vol] 16 U/L Normal 15-37 [facility] Comment on above: Performed By: #### C MP, BNP #### [facility] [address] [address] [address] Yaz Nur Bilirubin [Mass/Vol] 1.0 mg/dL Normal 0.2-1.0 [facility] Comment on above: Performed By: #### C MP, BNP #### [facility] [address] [address] [address] Yaz Nur Calcium [Mass/Vol] 8.6 mg/dL Normal 8.5-10.1 [facility] Comment on above: Performed By: #### C MP, BNP #### [facility] [address] [place] [address] Dr. Yaz Nur Chloride [Moles/Vol] 106 mmol/L Normal 98-107 [facility] Comment on above: Performed By: #### C MP, BNP #### [facility] [address] [place] [address] Dr. Yaz Nur CO2 [Moles/Vol] 28.5 mmol/L Normal 21.0-32.0 [facility] Comment on above: Performed By: #### C MP, BNP #### [facility] [address] [place] [address] Dr. Yaz Nur Creatinine [Mass/Vol] 1.14 mg/dL Normal 0.70-1.30 [facility] Comment on above: Performed By: #### C MP, BNP #### [facility] [address] [place] [address] Dr. Yaz Nur EGFR-AF SYRIAN >60 Normal >=60 [facility] Comment on above: Performed By: #### C MP, BNP #### [facility] [address] [place] [address] Dr. Yaz Nur EGFR-NON AF SYRIAN >60 Normal >=60 [facility] Comment on above: Performed By: #### C MP, BNP #### [facility] [address] [place] [address] Dr. Yaz Nur Globulin (S) [Mass/Vol] 2.9 g/dL Normal [facility] Comment on above: Performed By: #### C MP, BNP #### [facility] [address] [place] [address] Dr. Yaz Nur Glucose [Mass/Vol] 82 mg/dL Normal 74-106 [facility] Comment on above: Performed By: #### C MP, BNP #### [facility] [address] [place] [address] Dr. Yaz Nur Potassium [Moles/Vol] 4.3 mmol/L Normal 3.5-5.1 [facility] Comment on above: Performed By: #### C MP, BNP #### [facility] [address] [place] [address] Dr. Yaz Nur Protein [Mass/Vol] 6.8 g/dL Normal 6.4-8.2 [facility] Comment on above: Performed By: #### C MP, BNP #### [facility] [address] [place] [address] Dr. Yaz Nur Sodium [Moles/Vol] 139 mmol/L Normal 136-145 [facility] Comment on above: Performed By: #### C MP, BNP #### [facility] [address] [place] [address] Dr. Yaz Nur Urea nitrogen [Mass/Vol] 15.0 mg/dL Normal 7.0-18.0 [facility] Comment on above: Performed By: #### C MP, BNP #### [facility] [address] [place] [address] Dr. Yaz Nur Urea nitrogen/Creatinine [Mass ratio] 13.2 mg/mg Normal [facility] Comment on above: Performed By: #### C MP, BNP #### [facility] [address] [place] [address] Dr. Yaz Nur BNPon 08-17-2022 Natriuretic peptide B (Bld) [Mass/Vol] 274.0 pg/mL Normal <=1,800.0 [facility] Comment on above: Performed By: #### B CATHEAD WORKER, CMP, HSTROPN #### [facility] [address] [place] [address] Dr. Yaz Nur CARDIAC KANDIS 3-6on 2 CK [Catalytic activity/Vol] 190 U/L Normal 39-308 [facility] Comment on above: Performed By: #### C MP, BNP #### [facility] [address] [place] [address] Dr. Yaz Nur CK.MB [Mass/Vol] 3.22 ng/mL Normal <=3.60 [facility] Comment on above: Performed By: #### C MP, BNP #### [facility] [address] [place] [address] Dr. Yaz Nur HSTROP 7.3 pg/mL Normal 4.0-76.1 [facility] Comment on above: Result Comment: CUT- OFF POINTS HAVE BEEN ESTABLISHED BASED ON THE FOURTH UNIVERSAL DEFINITIONS OF MYOCARDIAL INFARCTION. THE UPPER REFERENCE LIMIT (URL) OF TROPONIN, DEFINED THE 99TH PERCENTILE OF cTnI DISTRIBUTION IN A REFERENCE POPULATION, HAS BEEN CONFIRMED THE DECISION THRESHOLD FOR LA DIAGNOSIS. Performed By: #### C MP, BNP #### [facility] [address] [place] [address] Dr. Yaz Nur CBC AUTO DIFFon 08-17-2022 BASO # 0.1 103/ul Normal 0.0-0.1 [facility] Comment on above: Performed By: #### C BC #### [facility] [address] [place] [address] Dr. Yaz Nur Basophils/100 WBC (Bld) 1.5 % Normal 0.2-2.0 [facility] Comment on above: Performed By: #### C BC #### [facility] [address] [place] [address] Dr. Yaz Nur EO # 0.6 103/ul Normal 0.0-0.7 [facility] Comment on above: Performed By: #### C BC #### [facility] [address] [place] [address] Dr. Yaz Nur Eosinophils/100 WBC (Bld) 9.1 % Critically high 0.9-7.0 [facility] Comment on above: Performed By: #### C BC #### [facility] [address] [place] [address] Dr. Yaz Nur Erythrocyte distribution width (RBC) [Ratio] 13.2 % Normal 11.0-15.0 [facility] Comment on above: Performed By: #### C BC #### [facility] [address] [place] [address] Dr. Yaz Nur Hematocrit (Bld) [Volume fraction] 47.2 % Normal 42.0-54.0 [facility] Comment on above: Performed By: #### C BC #### [facility] [address] [place] [address] Dr. Yaz Nur Hemoglobin (Bld) [Mass/Vol] 16.2 g/dL Normal 14.0-18.0 [facility] Comment on above: Performed By: #### C BC #### [facility] [address] [place] [address] Dr. Yaz Nur IG # 0.02 10e3/ul Normal 0.00-0.03 [facility] Comment on above: Performed By: #### C BC #### [facility] [address] [place] [address] Dr. Yaz Nur IG % 0.3 % Normal 0.0-0.5 [facility] Comment on above: Performed By: #### C BC #### [facility] [address] [place] [address] Dr. Yaz Nur LYMPH # 1.7 103/ul Normal 1.2-3.8 [facility] Comment on above: Performed By: #### C BC #### [facility] [address] [place] [address] Dr. Yaz Nur Lymphocytes/100 WBC (Bld) 27.1 % Normal 20.5-60.0 [facility] Comment on above: Performed By: #### C BC #### [facility] [address] [place] [address] Dr. Yaz Nur MANUAL DIFF REQ NO Normal [facility] Comment on above: Performed By: #### C BC #### [facility] [address] [place] [address] Dr. Yaz Nur MCH (RBC) [Entitic mass] 31.3 pg Normal 25.9-34.0 [facility] Comment on above: Performed By: #### C BC #### [facility] [address] [place] [address] Dr. Yaz Nur MCHC (RBC) [Mass/Vol] 34.3 g/dL Normal 29.9-35.2 [facility] Comment on above: Performed By: #### C BC #### [facility] [address] [address] [address] Yaz Nur MCV (RBC) [Entitic vol] 91.1 fL Normal 80.0-94.0 [facility] Comment on above: Performed By: #### C BC #### [facility] [address] [address] [address] Yaz Nur MONO # 0.6 103/ul Normal 0.3-0.8 [facility] Comment on above: Performed By: #### C BC #### [facility] [address] [place] [address] Dr. Yaz Nur Monocytes/100 WBC (Bld) 10.2 % Normal 1.7-12.0 [facility] Comment on above: Performed By: #### C BC #### [facility] [address] [place] [address] Dr. Yaz Nur NEUT # 3.2 103/ul Normal 1.4-6.5 [facility] Comment on above: Performed By: #### C BC #### [facility] [address] [place] [address] Dr. Yaz Nur Neutrophils/100 WBC (Bld) 51.8 % Normal 43.0-75.0 [facility] Comment on above: Performed By: #### C BC #### [facility] [address] [place] [address] Dr. Yaz Nur Platelet mean volume (Bld) [Entitic vol] 10.7 fL Normal 9.5-13.5 [facility] Comment on above: Performed By: #### C BC #### [facility] [address] [place] [address] Dr. Yaz Nur PLT 174 103/ul Normal 150-450 [facility] Comment on above: Performed By: #### C BC #### [facility] [address] [place] [address] Dr. Yaz Nur RBC 5.18 106/ul Normal 4.70-6.10 [facility] Comment on above: Performed By: #### C BC #### [facility] [address] [place] [address] Dr. Yaz Nur WBC 6.2 103/ul Normal 4.0-11.0 [facility] Comment on above: Performed By: #### C BC #### [facility] [address] [place] [address] Dr. Yaz Nur Covid-19 PCR ([facility])on SARS-CoV-2 (COVID-19) RNA SHIRLENE+probe Ql (Unsp spec) Not detected Normal NOT DETECTED [facility] Comment on above: Result Comment: When [...] for this test is supported by the Director Underwriter Sales of Health and Human Service's declaration that [...] By: #### C MP, BNP #### [facility] [address] [place] [address] Dr. Yaz Nur PROF 14(COMP METB)on 022 Albumin [Mass/Vol] 4.3 g/dL Normal 3.4-5.0 [facility] Comment on above: Performed By: #### B CATHEAD WORKER, CMP, HSTROPN #### [facility] [address] [place] [address] Dr. Yaz Nur Albumin/Globulin [Mass ratio] 1.7 {ratio} Normal [facility] Comment on above: Performed By: #### B CATHEAD WORKER, CMP, HSTROPN #### [facility] [address] [address] [address] Yaz Nur ALP [Catalytic activity/Vol] 102 U/L Normal 46-116 [facility] Comment on above: Performed By: #### B CATHEAD WORKER, CMP, HSTROPN #### [facility] [address] [address] [address] Yaz Nur ALT [Catalytic activity/Vol] 27 U/L Normal 16-63 [facility] Comment on above: Performed By: #### B CATHEAD WORKER, CMP, HSTROPN #### [facility] [address] [address] [address] Yaz Nur Anion gap [Moles/Vol] 10.8 mmol/L Normal [facility] Comment on above: Performed By: #### B CATHEAD WORKER, CMP, HSTROPN #### [facility] [address] [place] [address] Dr. Yaz Nur AST [Catalytic activity/Vol] 33 U/L Normal 15-37 [facility] Comment on above: Performed By: #### B CATHEAD WORKER, CMP, HSTROPN #### [facility] [address] [address] [address] Yaz Nur Bilirubin [Mass/Vol] 1.0 mg/dL Normal 0.2-1.0 [facility] Comment on above: Performed By: #### B CATHEAD WORKER, CMP, HSTROPN #### [facility] [address] [address] [address] Yaz Nur Calcium [Mass/Vol] 9.0 mg/dL Normal 8.5-10.1 [facility] Comment on above: Performed By: #### B CATHEAD WORKER, CMP, HSTROPN #### [facility] [address] [address] [address] Yaz Nur Chloride [Moles/Vol] 105 mmol/L Normal 98-107 [facility] Comment on above: Performed By: #### B CATHEAD WORKER, CMP, HSTROPN #### [facility] [address] [address] [address] Yaz Nur CO2 [Moles/Vol] 28.5 mmol/L Normal 21.0-32.0 [facility] Comment on above: Performed By: #### B CATHEAD WORKER, CMP, HSTROPN #### [facility] [address] [place] [address] Dr. Yaz Nur Creatinine [Mass/Vol] 0.92 mg/dL Normal 0.70-1.30 [facility] Comment on above: Performed By: #### B CATHEAD WORKER, CMP, HSTROPN #### [facility] [address] [address] [address] Yaz Nur EGFR-AF SYRIAN >60 Normal >=60 [facility] Comment on above: Performed By: #### B CATHEAD WORKER, CMP, HSTROPN #### [facility] [address] [place] [address] Dr. Yaz Nur EGFR-NON AF SYRIAN >60 Normal >=60 [facility] Comment on above: Performed By: #### B CATHEAD WORKER, CMP, HSTROPN #### [facility] [address] [place] [address] Dr. Yaz Nur Globulin (S) [Mass/Vol] 2.6 g/dL Normal [facility] Comment on above: Performed By: #### B CATHEAD WORKER, CMP, HSTROPN #### [facility] [address] [place] [address] Dr. Yaz Nur Glucose [Mass/Vol] 108 mg/dL Critically high 74-106 [facility] Comment on above: Performed By: #### B CATHEAD WORKER, CMP, HSTROPN #### [facility] [address] [place] [address] Dr. Yaz Nur Potassium [Moles/Vol] 4.3 mmol/L Normal 3.5-5.1 [facility] Comment on above: Result Comment: spec imen hemolysed Performed By: #### B CATHEAD WORKER, CMP, HSTROPN #### [facility] [address] [place] [address] Dr. Yaz Nur Protein [Mass/Vol] 6.9 g/dL Normal 6.4-8.2 [facility] Comment on above: Performed By: #### B CATHEAD WORKER, CMP, HSTROPN #### [facility] [address] [place] [address] Dr. Yaz Nur Sodium [Moles/Vol] 140 mmol/L Normal 136-145 [facility] Comment on above: Performed By: #### B CATHEAD WORKER, CMP, HSTROPN #### [facility] [address] [place] [address] Dr. Yaz Nur Urea nitrogen [Mass/Vol] 16.0 mg/dL Normal 7.0-18.0 [facility] Comment on above: Performed By: #### B CATHEAD WORKER, CMP, HSTROPN #### [facility] [address] [place] [address] Dr. Yaz Nur Urea nitrogen/Creatinine [Mass ratio] 17.4 mg/mg Normal [facility] Comment on above: Performed By: #### B CATHEAD WORKER, CMP, HSTROPN #### [facility] [address] [place] [address] Dr. Yaz Nur PROTIMEon 08-17-2022 INR Coag (PPP) [Relative time] 1.03 {INR} Normal [facility] Comment on above: Performed By: #### P T, PTT #### [facility] [address] [place] [address] Dr. Yaz Nur INR GUIDELINES SEE BELOW Normal [facility] Comment on above: Result Comment: DAMON RED INR: 2.0 - 3.0 CONDITIONS NOT LISTED BELOW 2.5 - 3.5 FOR PROSTHETIC HEART VALVE REPLACEMENT 2.5 - 3.5 RECURRENT THROMBOSIS Performed By: #### P T, PTT #### [facility] [address] [place] [address] Dr. Yaz Nur PT Coag (PPP) [Time] 11.1 s Normal 9.0-11.6 [facility] Comment on above: Performed By: #### P T, PTT #### [facility] [address] [place] [address] Dr. Yaz Nur PTTon 08-17-2022 aPTT Coag (Bld) [Time] 27.7 s Normal 22.3-36.2 [facility] Comment on above: Performed By: #### P T, PTT #### [facility] [address] [place], [place] [address] Dr. Yaz Nur TROPONIN, HIGH SENSITIVITYon 08-17-2022 HSTROP 7.5 pg/mL Normal 4.0-76.1 [facility] Comment on above: Result Comment: CUT- OFF POINTS HAVE BEEN ESTABLISHED BASED ON THE FOURTH UNIVERSAL DEFINITIONS OF MYOCARDIAL INFARCTION. THE UPPER REFERENCE LIMIT (URL) OF TROPONIN, DEFINED THE 99TH PERCENTILE OF cTnI DISTRIBUTION IN A REFERENCE POPULATION, HAS BEEN CONFIRMED THE DECISION THRESHOLD FOR LA DIAGNOSIS. Performed By: #### B CATHEAD WORKER, CMP, HSTROPN #### [facility] [address] [place], [place] [address] Dr. Yaz Nur XR CHEST 1 Von [...] VALDOVINOS Date: 2022-08-17 17:22 Normal [facility] Encounters Encounter Date Encounter Type Care Provider Facility Start: 09-12-2022 End: 09-13-[address] STEPHANE SMALLS Facility:[facility] Start: 09-09-2022 End: 09-10-[address] STEPHANE SMALLS Facility:[facility] Start: 08-19-2022 End: 08-19-[address] STEPHANE SMALLS Facility:[facility] Start: 08-17-2022 End: 08-18-[address] STEPHANE SMALLS Facility:[facility] Start: 02-08-2018 End: 02-09-2018 Ambulatory DEFAULT PHYSICIAN Facility:[facility] Payers Date Payer Category Payer Medicare [id number] 1940 Unknown [id number] 1940 Unknown [id number] 1940 Unknown [id number] 1940 Unknown [id number] Unknown Summary Purpose Family History No Family History Records FoundNo Family History Records Found Advance Directives No Advanced Directives Records FoundNo Advanced Directives Records Found Additional Source Comments (unrecognized sect ion and content) No Status Records FoundNo Status Records Found INFORMATION SOURCE (unrecogn ized section and content) DATE CREATED AUTHOR 05/02/2018 [facility] DATE CREATED AUTHOR AUTHOR'S ORGANIZ ATION 09/16/2022 [facility] FOR RECORDS PERTAINING TO PATIENTS [...] BE BASED ON THE PRIMARY CLINICAL RECORDS. [employer] provides no warranty or guarantee of the accuracy or completeness of information in this document.
--- NOTE | 2024-09-28 22:49 | ECG_ITS ---
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1940 Requested By: STEPHANE SMALLS Order Number: [id number] Reading MD: STEPHANE SMALLS Measurements Intervals [place] Rate: 115 P: 227 [place]: 234 QRS: 264 QRSD: 82 T: 57 QT: 312 QTc: 380 Interpretive Statements 1220 Rapid atrial rhythm 2231 First degree AV block 3113 Cannot rule out anterior myocardial infarction, probably old [address] depression - high lateral ischmeia 7300 Indeterminate axis 9150 abnormal ECG Compared to ECG 05/10/2024 04:34:23 Sinus rhythm no longer present Myocardial infarct finding still present ST (T wave) deviation still present Electronically Signed On 09-29-2024 7:27:53 EST by STEPHANE SMALLS
--- NOTE | 2024-09-28 23:22 | XR_ITS ---
[address] [address] Patient Name: ESPERANZA POLANCO MRN: [id number] date: 1940 Sex: M Assigned Patient Location: ER Current Patient Location: ER Accession/Order Number: [id number] Exam Date: 09/28/2024 23:27 Report Date: 09/28/2024 23:58 At the request of: KENA ARMIJO Procedure: XR chest 1V EXAMINATION: XR chest 1V, , 09/28/2024 11:27 PM EST INDICATION: chest pain HISTORY: Ordering Provider Reason for Exam: chest pain Technologist Note: Additional: COMPARISON: XR chest 1V Study Date: 05/09/2024 TECHNIQUE: Chest x-ray: One view. FINDINGS: Increased markings are seen in the infrahilar left lower lung, which may represent an infiltrate. A lateral view of the chest would be helpful for better evaluation. No significant pleural effusion or obvious pneumothorax is seen. Heart is normal in size. Bony thorax is unremarkable. XR/XR chest 1V IMPRESSION: Increased markings are seen in the infrahilar left lower lung, which may represent an infiltrate. A lateral view of the chest would be helpful for better evaluation. Electronically authenticated by: ANNE-MARIE FALCON Date: 09/28/2024 23:58
--- NOTE | 2024-09-28 23:23 | ED_ITS ---
HPI - Chest Pain General Chief Complaint: Chest Pain Stated Complaint: chest pain Time Seen by Provider: 09/28/24 23:04 Source: patient Mode of arrival: walk-in Limitations: no limitations History of Present Illness HPI narrative: past history of CAD presents complaining of acute onset of chest pain radiating to his left shoulder and associated with belching. No dyspnea or vomiting Risk Factors Thoracic aortic dissection risk factors: longstanding hypertension Related Data Home Medications ?Medication ?Instructions ?Recorded ?Confirmed amlodipine 5 mg tablet 5 mg PO DAILY 05/10/24 09/28/24 aspirin 81 mg chewable tablet 81 mg PO DAILY 05/10/24 09/28/24 (Children's Aspirin) fenofibrate nanocrystallized 145 145 mg PO DAILY 05/10/24 09/28/24 mg tablet rosuvastatin 5 mg tablet 5 mg PO DAILY 05/10/24 09/28/24 thyroid (pork) 90 mg tablet 90 mg PO DAILY 05/10/24 09/28/24 ([facility] Thyroid) vitamin E (dl, acetate) 400 unit PO DAILY 05/10/24 09/28/24 Previous Rx's ?Medication ?Instructions ?Recorded isosorbide mononitrate 30 mg 30 mg PO QD #30 tabs 05/10/24 tablet,extended release 24 hr nitroglycerin 0.4 mg sublingual 0.4 mg sublingual Q5M PRN chest 05/10/24 tablet pain #20 tabs Allergies Allergy/AdvReac Type Severity Reaction Status Date / Time No Known Drug Allergies Allergy Verified 09/28/24 22:46 Review of Systems ROS Status of ROS 10 or more systems reviewed and unremark able except as noted in history and below [facility] Medical History (Updated 09/29/24 @ 02:11 by Abhijit Neri MD) Chest pain, rule out acute myocardial infarction ?R07.9 - Chest pain, unspecified (ICD-10) Social History Within the past year, how often did you have a drink containing alcohol: never Score interpretation: A score less than 4 is consistent with normal alcohol consumption. 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 Highest level of school completed/degree received: high school graduate Are you now , , , , never or living with a partner: Little interest or pleasure in doing things: not at all Feeling down, depressed, or hopeless: not at all Feel stressed/tense/nervous/anxious/difficulty sleeping: not at all Do you think of yourself as: straight/heterosexual Gender Identity: male Exam Constitutional Vital Signs, click to edit/add: Last Vital Signs Temp 97.7 F 09/28/24 22:42 Pulse 74 09/29/24 01:10 Resp 17 09/29/24 01:10 BP 105/76 09/29/24 01:00 Pulse Ox 96 09/28/24 22:51 O2 Del Method Room Air 09/28/24 22:42 Common normals: no apparent distress, average body habitus, oriented x3, no limitations, healthy appearing, alert and well nourished HENMO Common normals: normocephalic and head/scalp atraumatic Eye Common normals: PERRL, EOMs intact bilaterally and conjunctivae normal Respiratory Common normals: normal respiratory effort, no retractions, no use of accessory muscles and clear to auscultation bilaterally Cardio Common normals: regular rate, regular rhythm, S1 normal heart sound and S2 normal heart sound GI Common normals: Normal to inspection, nondistended, normoactive bowel sounds present, soft to palpation and non-tender Extremity Common normals: normal to inspection and full ROM Neuro Common normals: oriented x3, CN's II-XII intact bilaterally, moves all extremities and no focal motor deficits Psych Appearance: grossly normal Course Vital Signs Vital signs: Vital Signs Temperature 97.7 F 09/28/24 22:42 Pulse Rate 94 H 09/28/24 22:42 Respiratory Rate 18 09/28/24 22:42 Blood Pressure 165/108 H 09/28/24 22:42 Pulse Oximetry 97 09/28/24 22:42 Oxygen Delivery Method Room Air 09/28/24 22:42 Temperature 97.7 F 09/28/24 22:42 Pulse Rate 74 09/29/24 01:10 Respiratory Rate 17 09/29/24 01:10 Blood Pressure 105/76 09/29/24 01:00 Pulse Oximetry 96 09/28/24 22:51 Oxygen Delivery Method Room Air 09/28/24 22:42 MDM - Chest Pain MDM Narrative Medical decision making narrative: patient has a past history of CAD and hypertension. Presents with chest pain radiating to his left shoulder and left upper abdomen. No dyspnea or nausea/vomiting. d-dimer positive. CTA chest neg for PE but did demonstrate thyroid nodule. Serial troponin neg. First EKG with atrial tachycardia. Repeat EKG after he was filling better demonstrated NSR with first degree AV block and LAD patient and family informed of the thyroid nodule and need to followup with the family doctor regarding the nodule. Discussed with the hospitalist and patient accepted for obs admission for chest pain. Lab Data Labs: Lab Results 09/28/24 09/29/24 Range/Units 22:51 01:20 WBC 10.1 (4.0-11.0) 10^3/uL RBC 5.67 (4.70-6.10) 10^6/uL Hgb 17.4 (14.0-18.0) g/dL Hct 50.8 (42.0-54.0) % MCV 89.6 (80.0-94.0) fL MCH 30.7 (25.9-34.0) pg MCHC 34.3 (29.9-35.2) g/dL RDW 13.0 (11.0-15.0) % Plt Count 232 (150-450) 10^3/uL MPV 10.3 (9.5-13.5) fL Neut % (Auto) 75.2 H (43.0-75.0) % Lymph % (Auto) 15.2 L (20.5-60.0) % [place] % (Auto) 7.2 (1.7-12.0) % Eos % (Auto) 1.3 (0.9-7.0) % Baso % (Auto) 0.8 (0.2-2.0) % Neut # (Auto) 7.6 H (1.4-6.5) 10^3/uL Lymph # (Auto) 1.5 (1.2-3.8) 10^3/uL [place] # (Auto) 0.7 (0.3-0.8) 10^3/uL Eos # (Auto) 0.1 (0.0-0.7) 10^3/uL Baso # (Auto) 0.1 (0.0-0.1) 10^3/uL Abs Immat Gran (auto) 0.03 (0.00-0.03) 10^3/uL Imm/Tot Granulo (auto) 0.3 (0.0-0.5) % D-Dimer 0.95 H* (<=0.59) mg/L FEU Sodium 143 (136-145) mmol/L Potassium 4.1 (3.5-5.1) mmol/L Chloride 105 (98-107) mmol/L Carbon Dioxide 23.4 (21.0-32.0) mmol/L Anion Gap 18.7 BUN 18.0 (7.0-18.0) mg/dL Creatinine 1.50 H (0.70-1.30) mg/dL Est GFR ( Amer) 54 L (>=60 mL/min/1.73m^2) Est GFR (Non-Af Amer) 44 L (>=60 mL/min/1.73m^2) BUN/Creatinine Ratio 12.0 Glucose 139 H (74-106) mg/dL Calcium 9.6 (8.5-10.1) mg/dL Troponin I High Sens 15.8 17.6 (4.0-76.1) pg/mL Imaging Data Chest x-ray: Radiologist's impression: ITS Impressions Chest X-Ray 09/28/24 23:22 IMPRESSION: Increased markings are seen in the infrahilar left lower lung, which may represent an infiltrate. A lateral view of the chest would be helpful for better evaluation. Electronically authenticated by: ANNE-MARIE FALCON Date: 09/28/2024 23:58 Chest CTA 09/28/24 23:49 IMPRESSION: No CT evidence for pulmonary embolism. Large hiatal hernia Electronically authenticated by: ANNE-MARIE [employer] Pharm[employer]MONROE Date: 09/29/2024 00:46 Discharge Plan Discharge Chief Complaint: Chest Pain Clinical Impression: Chest pain Patient Disposition: Admitted as Observation
[2024-09-28 23:28] LABS: Basophils Absolute Auto 0.1 10^3/uL (0.0-0.1); Basophils Percent Auto 0.8 % (0.2-2.0); Eosinophils Absolute Auto 0.1 10^3/uL (0.0-0.7); Eosinophils Percent Auto 1.3 % (0.9-7.0); Hematocrit 50.8 % (42.0-54.0); Hemoglobin 17.4 g/dL (14.0-18.0); Immature Granulocytes Abs Auto 0.03 10^3/uL (0.00-0.03); Immature Granulocytes Pct Auto 0.3 % (0.0-0.5); Lymphocytes Absolute Auto 1.5 10^3/uL (1.2-3.8); Lymphocytes Percent Auto 15.2 % (20.5-60.0); Mean Corpuscular HGB Conc 34.3 g/dL (29.9-35.2); Mean Corpuscular Hemoglobin 30.7 pg (25.9-34.0); Mean Corpuscular Volume 89.6 fL (80.0-94.0); Mean Platelet Volume 10.3 fL (9.5-13.5); Monocytes Absolute Auto 0.7 10^3/uL (0.3-0.8); Monocytes Percent Auto 7.2 % (1.7-12.0); Neutrophils Absolute Auto 7.6 10^3/uL (1.4-6.5); Neutrophils Percent Auto 75.2 % (43.0-75.0); Platelet Count 232 10^3/uL (150-450); Red Blood Count 5.67 10^6/uL (4.70-6.10); White Blood Count 10.1 10^3/uL (4.0-11.0)
[2024-09-28 23:46] LABS: Anion Gap 18.7; Calcium 9.6 mg/dL (8.5-10.1); Carbon Dioxide 23.4 mmol/L (21.0-32.0); Chloride 105 mmol/L (98-107); Estimated GFR (African America 54 (>=60 mL/min/1.73m^2); Estimated GFR (Non-African Ame 44 (>=60 mL/min/1.73m^2); Glucose 139 mg/dL (74-106); Potassium 4.1 mmol/L (3.5-5.1); Sodium 143 mmol/L (136-145); Troponin I High Sensitivity 15.8 pg/mL (4.0-76.1)
[2024-09-28 23:48] LABS: D Dimer 0.95 mg/L FEU (<=0.59)
--- NOTE | 2024-09-28 23:49 | CT_ITS ---
[facility] [id number] Patient Name: ESPERANZA POLANCO MRN: [id number] date: 1940 Sex: M Assigned Patient Location: ER Current Patient Location: ER Accession/Order Number: [id number] Exam Date: 09/28/2024 23:59 Report Date: 09/29/2024 00:46 At the request of: KENA ARMIJO Procedure: CT angio chest EXAM: CT angio chest HISTORY: elevated D-Dimer COMPARISON: None. TECHNIQUE: Multiple axial images of the chest are obtained following rapid IV contrast administration. FINDINGS: There is adequate contrast opacification of the pulmonary arteries. No abrupt cut off or significant filling defect is seen to suggest CT evidence for pulmonary embolism. The pulmonary arteries are normal in caliber. The ascending and descending thoracic aorta measure 4.1 cm and 3 cm in maximal AP diameter, respectively. There is no evidence for thoracic aortic dissection. The heart size is normal. There is no evidence for pericardial effusion. Significant coronary arterial calcification is seen. There is no evidence for pleural effusion or pneumothorax. The lungs appear clear. No focal consolidation is seen. Large hiatal hernia is seen. No significant enlarged hilar, mediastinal or axillary adenopathy seen. Enlarged and heterogeneous right posterior thyroid nodule is seen measuring approximately 3.3 x 2.5 cm.. The visualized chest wall appears unremarkable. No acute abnormality is seen in the visualized upper abdomen. Partially visualized small gallstone may be seen. No destructive osseous lesion is seen. CT/CT angio chest IMPRESSION: No CT evidence for pulmonary embolism. Large hiatal hernia Electronically authenticated by: ANNE-MARIE FALCON Date: 09/29/2024 00:46
[2024-09-29] VITALS (36 sets, daily range): BP systolic 103–120; BP diastolic 68–87; PULSE 51–94; TEMP 36.6–36.7; O2SAT 94–96; BMI 27.9
--- NOTE | 2024-09-29 01:24 | ECG_ITS ---
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[id number] Requested By: STEPHANE SMALLS Order Number: [id number] Reading MD: STEPHANE SMALLS Measurements Intervals Graham Rate: 84 P: 30 RI: 212 QRS: -89 QRSD: 86 T: 60 QT: 372 QTc: 413 Interpretive Statements 1100 Sinus rhythm 1570 with occasional ventricular premature complexes 2231 First degree AV block 3113 Cannot rule out anterior myocardial infarction, probably old 7200 Abnormal left axis deviation 9150 abnormal ECG Compared to ECG 09/28/2024 22:48:42 Ventricular premature complex(es) now present Left-axis deviation now present ST (T wave) deviation no longer present Indeterminate axis no longer present Myocardial infarct finding still present Electronically Signed On 09-29-2024 7:27:59 EST by STEPHANE SMALLS
[2024-09-29 01:56] LABS: Troponin I High Sensitivity 17.6 pg/mL (4.0-76.1)
--- OUTSIDE RECORDS SUMMARY | 2024-09-29 03:27 | XMS_ITS | CCD ---
Author Organization [facility] Care Team Providers Care Environmental Engineering Assistant Name Role Phone PHYSICIAN, DEFAULT Unavailable Unavailable [...] disease (2 sources) Atherosclerotic heart disease of [place] coronary artery without angina pectoris; Translations: [Old [...] aftercare (1 source) Other long term care administrator (current) drug therapy; Translations: [OTH CONFLICTS ANALYST CURRENT DRUG THERAPY] Onset: 2 Episodic Other aftercare (1 source) meterman (current) use of aspirin; Translations: [CONFLICTS ANALYST CURRENT USE OF ASPIRIN] Onset: 2 Episodic [...] by: BERNIE COLINDRES Date: 2022-09-12 10:13 Normal [facility] PSA, FREE AND TOTAL RATIOon 09-10-2022 % Free PSA 44.1 % Normal [facility] Comment on above: Result Comment: The [...] BNP #### [facility] [address] [place] [address] Dr. Yaz Nur Prostate specific Ag [Mass/Vol] 2.7 ng/mL Normal 0.0-4.0 [facility] Comment on above: Result Comment: Cooper MAY methodology. . According to the [employer] [employer], Serum PSA should decrease and [...] #### [facility] [address] [place], [place] [address] Dr. Yaz Nur PSA, Free 1.19 ng/mL Normal N/A [facility] Comment on above: Result Comment: Cooper MAY methodology. Performed By: #### C MP, BNP #### [facility] [address] [place] [address] Dr. Yaz Nur CBC AUTO DIFFon 09-09-2022 BASO # 0.1 103/ul Normal 0.0-0.1 [facility] Comment on above: Performed By: #### C MP, BNP #### [facility] [address] [place] [address] Dr. Yaz Nur Basophils/100 WBC (Bld) 1.0 % Normal 0.2-2.0 [facility] Comment on above: Performed By: #### C MP, BNP #### [facility] [address] [place] [address] Dr. Yaz Nur EO # 0.5 103/ul Normal 0.0-0.7 [facility] Comment on above: Performed By: #### C MP, BNP #### [facility] [address] [place] [address] Dr. Yaz Nur Eosinophils/100 WBC (Bld) 8.8 % Critically high 0.9-7.0 [facility] Comment on above: Performed By: #### C MP, BNP #### [facility] [address] [place] [address] Dr. Yaz Nur Erythrocyte distribution width (RBC) [Ratio] 13.4 % Normal 11.0-15.0 [facility] Comment on above: Performed By: #### C MP, BNP #### [facility] [address] [place] [address] Dr. Yaz Nur Hematocrit (Bld) [Volume fraction] 46.8 % Normal 42.0-54.0 [facility] Comment on above: Performed By: #### C MP, BNP #### [facility] [address] [place] [address] Dr. Yaz Nur Hemoglobin (Bld) [Mass/Vol] 16.2 g/dL Normal 14.0-18.0 [facility] Comment on above: Performed By: #### C MP, BNP #### [facility] [address] [place] [address] Dr. Yaz Nur IG # 0.01 10e3/ul Normal 0.00-0.03 [facility] Comment on above: Performed By: #### C MP, BNP #### [facility] [address] [place] [address] Dr. Yaz Nur IG % 0.2 % Normal 0.0-0.5 [facility] Comment on above: Performed By: #### C MP, BNP #### [facility] [address] [place] [address] Dr. Yaz Nur LYMPH # 1.5 103/ul Normal 1.2-3.8 [facility] Comment on above: Performed By: #### C MP, BNP #### [facility] [address] [place] [address] Dr. Yaz Nur Lymphocytes/100 WBC (Bld) 29.2 % Normal 20.5-60.0 [facility] Comment on above: Performed By: #### C MP, BNP #### [facility] [address] [place] [address] Dr. Yaz Nur MANUAL DIFF REQ NO Normal [facility] Comment on above: Performed By: #### C MP, BNP #### [facility] [address] [place] [address] Dr. Yaz Nur MCH (RBC) [Entitic mass] 31.4 pg Normal 25.9-34.0 [facility] Comment on above: Performed By: #### C MP, BNP #### [facility] [address] [place] [address] Dr. Yaz Nur MCHC (RBC) [Mass/Vol] 34.6 g/dL Normal 29.9-35.2 [facility] Comment on above: Performed By: #### C MP, BNP #### [facility] [address] [place] [address] Dr. Yaz Nur MCV (RBC) [Entitic vol] 90.7 fL Normal 80.0-94.0 [facility] Comment on above: Performed By: #### C MP, BNP #### [facility] [address] [place] [address] Dr. Yaz Nur MONO # 0.6 103/ul Normal 0.3-0.8 [facility] Comment on above: Performed By: #### C MP, BNP #### [facility] [address] [place] [address] Dr. Yaz Nur Monocytes/100 WBC (Bld) 11.2 % Normal 1.7-12.0 [facility] Comment on above: Performed By: #### C MP, BNP #### [facility] [address] [place] [address] Dr. Yaz Nur NEUT # 2.5 103/ul Normal 1.4-6.5 [facility] Comment on above: Performed By: #### C MP, BNP #### [facility] [address] [place] [address] Dr. Yaz Nur Neutrophils/100 WBC (Bld) 49.6 % Normal 43.0-75.0 [facility] Comment on above: Performed By: #### C MP, BNP #### [facility] [address] [place] [address] Dr. Yaz Nur Platelet mean volume (Bld) [Entitic vol] 9.9 fL Normal 9.5-13.5 [facility] Comment on above: Performed By: #### C MP, BNP #### [facility] [address] [place] [address] Dr. Yaz Nur PLT 157 103/ul Normal 150-450 [facility] Comment on above: Performed By: #### C MP, BNP #### [facility] [address] [place] [address] Dr. Yaz Nur RBC 5.16 106/ul Normal 4.70-6.10 [facility] Comment on above: Performed By: #### C MP, BNP #### [facility] [address] [place] [address] Dr. Yaz Nur WBC 5.1 103/ul Normal 4.0-11.0 [facility] Comment on above: Performed By: #### C MP, BNP #### [facility] [address] [place] [address] Dr. Yaz Nur CULTURE URINEon 09-09-2022 CULTURE URINE Culture Observations : LIGHT GROWTH OF MIXED SKIN COCO. NO POTENTIAL PATHOGENS SEEN. Normal [facility] Comment on above: Performed By: #### C MP, BNP #### [facility] [address] [place] [address] Dr. Yaz Nur PROTIMEon 09-09-2022 INR Coag (PPP) [Relative time] 1.06 {INR} Normal [facility] Comment on above: Performed By: #### C MP, BNP #### [facility] [address] [place] [address] Dr. Yaz Nur INR GUIDELINES SEE BELOW Normal [facility] Comment on above: Result Comment: DAMON RED INR: 2.0 - 3.0 CONDITIONS NOT LISTED BELOW 2.5 - 3.5 FOR PROSTHETIC HEART VALVE REPLACEMENT 2.5 - 3.5 RECURRENT THROMBOSIS Performed By: #### C MP, BNP #### [facility] [address] [place] [address] Dr. Yaz Nur PT Coag (PPP) [Time] 11.4 s Normal 9.0-11.6 [facility] Comment on above: Performed By: #### C MP, BNP #### [facility] [address] [place] [address] Dr. Yaz Nur PTTon 09-09-2022 aPTT Coag (Bld) [Time] 30.0 s Normal 22.3-36.2 [facility] Comment on above: Performed By: #### C MP, BNP #### [facility] [address] [place] [address] Dr. Yaz Nur UA RANDOM W/MICROSCOPICon BACTERIA NONE SEEN Normal NONE SEEN [facility] Comment on above: Performed By: #### C MP, BNP #### [facility] [address] [place] [address] Dr. Yaz Nur Bilirubin Ql (U) Negative Normal NEGATIVE [facility] Comment on above: Performed By: #### C MP, BNP #### [facility] [address] [place] [address] Dr. Yaz Nur CAST NONE SEEN Normal NONE SEEN [facility] Comment on above: Performed By: #### C MP, BNP #### [facility] [address] [place] [address] Dr. Yaz Nur Clarity (U) CLEAR Normal CLEAR [facility] Comment on above: Performed By: #### C MP, BNP #### [facility] [address] [place] [address] Dr. Yaz Nur Color (U) YELLOW Normal YELLOW [facility] Comment on above: Performed By: #### C MP, BNP #### [facility] [address] [place] [address] Dr. Yaz Nur Crystals LM Nom (Urine sed) NONE SEEN Normal NONE SEEN [facility] Comment on above: Performed By: #### C MP, BNP #### [facility] [address] [place] [address] Dr. Yaz Nur Epithelial cells LM Ql (Urine sed) RARE Normal NONE SEEN /RARE [facility] Comment on above: Performed By: #### C MP, BNP #### [facility] [address] [place] [address] Dr. Yaz Nur Glucose Ql (U) Negative Normal NEGATIVE [facility] Comment on above: Performed By: #### C MP, BNP #### [facility] [address] [place] [address] Dr. Yaz Nur Hemoglobin Ql (U) Negative Normal NEGATIVE [facility] Comment on above: Performed By: #### C MP, BNP #### [facility] [address] [place] [address] Dr. Yaz Nur Ketones Ql (U) Negative Normal NEGATIVE [facility] Comment on above: Performed By: #### C MP, BNP #### [facility] [address] [place] [address] Dr. Yaz Nur LEUKOCYTES Negative Normal NEGATIVE [facility] Comment on above: Performed By: #### C MP, BNP #### [facility] [address] [place] [address] Dr. Yaz Nur MUCOUS NONE SEEN Normal NONE SEEN [facility] Comment on above: Performed By: #### C MP, BNP #### [facility] [address] [place] [address] Dr. Yaz Nur Nitrite Ql (U) Negative Normal NEGATIVE [facility] Comment on above: Performed By: #### C MP, BNP #### [facility] [address] [place] [address] Dr. Yaz Nur pH (U) 5.5 [pH] Normal 5-9 [facility] Comment on above: Performed By: #### C MP, BNP #### [facility] [address] [place] [address] Dr. Yaz Nur RBC 0-2 Normal 0-2 [facility] Comment on above: Performed By: #### C MP, BNP #### [facility] [address] [place] [address] Dr. Yaz Nur SPEC GRAVITY >=1.030 Abnormal 1.005-<=1.025 [facility] Comment on above: Performed By: #### C MP, BNP #### [facility] [address] [place] [address] Dr. Yaz Nur UA PROTEIN Negative Normal NEGATIVE/ TRACE [facility] Comment on above: Performed By: #### C MP, BNP #### [facility] [address] [place] [address] Dr. Yaz Nur Urobilinogen Qn (U) 0.2 {Joseph'U}/dL Normal 0.2 - 1. 0 [facility] Comment on above: Performed By: #### C MP, BNP #### [facility] [address] [place] [address] Dr. Yaz Nur WBC 0-2 Abnormal NONE SEEN [facility] Comment on above: Performed By: #### C MP, BNP #### [facility] [address] [place] [address] Dr. Yaz Nur BNPon 08-18-2022 Natriuretic peptide B (Bld) [Mass/Vol] 228.0 pg/mL Normal <=1,800.0 [facility] Comment on above: Performed By: #### C MP, BNP #### [facility] [address] [place] [address] Dr. Yaz Nur CARDIAC KANDIS 3-6on 2 CK [Catalytic activity/Vol] 165 U/L Normal 39-308 [facility] Comment on above: Performed By: #### C MREP #### [facility] [address] [place] [address] Dr. Yaz Nur CK.MB [Mass/Vol] 2.85 ng/mL Normal <=3.[address] [facility] Comment on above: Performed By: #### C MREP #### [facility] [address] [place] [address] Dr. Yaz Nur HSTROP 6.7 pg/mL Normal 4.0-76.1 [facility] Comment on above: Result Comment: CUT- OFF POINTS HAVE BEEN ESTABLISHED BASED ON THE FOURTH UNIVERSAL DEFINITIONS OF MYOCARDIAL INFARCTION. THE UPPER REFERENCE LIMIT (URL) OF TROPONIN, DEFINED THE 99TH PERCENTILE OF cTnI DISTRIBUTION IN A REFERENCE POPULATION, HAS BEEN CONFIRMED THE DECISION THRESHOLD FOR [place] DIAGNOSIS. Performed By: #### C MREP #### [facility] [address] [place] [address] Dr. Yaz Nur CBC AUTO DIFFon 08-18-2022 BASO # 0.1 103/ul Normal 0.0-0.1 [facility] Comment on above: Performed By: #### C BC #### [facility] [address] [place] [address] Dr. Yaz Nur Basophils/100 WBC (Bld) 1.3 % Normal 0.2-2.0 [facility] Comment on above: Performed By: #### C BC #### [facility] [address] [place] [address] Dr. Yaz Nur EO # 0.6 103/ul Normal 0.0-0.7 [facility] Comment on above: Performed By: #### C BC #### [facility] [address] [place] [address] Dr. Yaz Nur Eosinophils/100 WBC (Bld) 9.9 % Critically high 0.9-7.0 [facility] Comment on above: Performed By: #### C BC #### [facility] [address] [place] [address] Dr. Yaz Nur Erythrocyte distribution width (RBC) [Ratio] 13.2 % Normal 11.0-15.0 [facility] Comment on above: Performed By: #### C BC #### [facility] [address] [place] [address] Dr. Yaz Nur Hematocrit (Bld) [Volume fraction] 47.0 % Normal 42.0-54.0 [facility] Comment on above: Performed By: #### C BC #### [facility] [address] [place] [address] Dr. Yaz Nur Hemoglobin (Bld) [Mass/Vol] 15.8 g/dL Normal 14.0-18.0 [facility] Comment on above: Performed By: #### C BC #### [facility] [address] [place] [address] Dr. Yaz Nur IG # 0.02 10e3/ul Normal 0.00-0.03 [facility] Comment on above: Performed By: #### C BC #### [facility] [address] [place] [address] Dr. Yaz Nur IG % 0.3 % Normal 0.0-0.5 [facility] Comment on above: Performed By: #### C BC #### [facility] [address] [place] [address] Dr. Yaz Nur LYMPH # 1.8 103/ul Normal 1.2-3.8 [facility] Comment on above: Performed By: #### C BC #### [facility] [address] [place] [address] Dr. Yaz Nur Lymphocytes/100 WBC (Bld) 28.1 % Normal 20.5-60.0 [facility] Comment on above: Performed By: #### C BC #### [facility] [address] [place] [address] Dr. Yaz Nur MANUAL DIFF REQ NO Normal [facility] Comment on above: Performed By: #### C BC #### [facility] [address] [place] [address] Dr. Yaz Nur MCH (RBC) [Entitic mass] 31.3 pg Normal 25.9-34.0 [facility] Comment on above: Performed By: #### C BC #### [facility] [address] [place] [address] [address] Yaz uNr MCHC (RBC) [Mass/Vol] 33.6 g/dL Normal 29.9-35.2 [facility] Comment on above: Performed By: #### C BC #### [facility] [address] [address] [address] aYz Nur MCV (RBC) [Entitic vol] 93.1 fL Normal 80.0-94.0 [facility] Comment on above: Performed By: #### C BC #### [facility] [address] [place] [address] Dr. Yaz Nur MONO # 0.6 103/ul Normal 0.3-0.8 [facility] Comment on above: Performed By: #### C BC #### [facility] [address] [place] [address] Dr. Yaz Nur Monocytes/100 WBC (Bld) 9.7 % Normal 1.7-12.0 [facility] Comment on above: Performed By: #### C BC #### [facility] [address] [place] [address] Dr. Yaz Nur NEUT # 3.2 103/ul Normal 1.4-6.5 [facility] Comment on above: Performed By: #### C BC #### [facility] [address] [place] [address] Dr. Yaz Nur Neutrophils/100 WBC (Bld) 50.7 % Normal 43.0-75.0 [facility] Comment on above: Performed By: #### C BC #### [facility] [address] [address] [address] Yaz Nur Platelet mean volume (Bld) [Entitic vol] 9.9 fL Normal 9.5-13.5 [facility] Comment on above: Performed By: #### C BC #### [facility] [address] [address] [address] Yaz Nur PLT 144 103/ul Critically low 150-450 [facility] Comment on above: Performed By: #### C BC #### [facility] [address] [address] [address] Yaz Nur RBC 5.05 106/ul Normal 4.70-6.10 [facility] Comment on above: Performed By: #### C BC #### [facility] [id number] Yaz Nur WBC 6.4 103/ul Normal 4.0-11.0 [facility] Comment on above: Performed By: #### C BC #### [facility] [id number] Yaz Nur ECHOCARDIO M/2D COMPLETEon 1 ECHOCARDIO M/2D COMPLETE Patient: ESPERANZA POLANCO Exam Date: 08/18/2022 : 1940 Gender:M Ordering : DR STEPHANE SMALLS . Admission #: [id number] Family : Order #: [id number] CLICK HERE TO VIEW EXAM ECHOCARDIOGRAM REPORT [...] Jaimes M.D. on 08/22/2022 at 07:53 Normal [facility] PROF 14(COMP METB)on 08-18- 022 Albumin [Mass/Vol] 3.9 g/dL Normal 3.4-5.0 [facility] Comment on above: Performed By: #### C MP, BNP #### [facility] [address] [address] [address] Yaz Nur Albumin/Globulin [Mass ratio] 1.3 {ratio} [facility] Comment on above: Performed By: #### C MP, BNP #### [facility] [address] [place] [address] Dr. Yaz Nur ALP [Catalytic activity/Vol] 94 U/L Normal 46-116 [facility] Comment on above: Performed By: #### C MP, BNP #### [facility] [address] [address] [address] Yaz Nur ALT [Catalytic activity/Vol] 21 U/L Normal 16-63 [facility] Comment on above: Performed By: #### C MP, BNP #### [facility] [address] [address] [address] Yaz Nur Anion gap [Moles/Vol] 8.8 mmol/L Normal [facility] Comment on above: Performed By: #### C MP, BNP #### [facility] [address] [address] [address] Yaz Nur AST [Catalytic activity/Vol] 16 U/L Normal 15-37 [facility] Comment on above: Performed By: #### C MP, BNP #### [facility] [address] [address] [address] Yaz Nur Bilirubin [Mass/Vol] 1.0 mg/dL Normal 0.2-1.0 [facility] Comment on above: Performed By: #### C MP, BNP #### [facility] [address] [address] [address] Yaz Nur Calcium [Mass/Vol] 8.6 mg/dL Normal 8.5-10.1 [facility] Comment on above: Performed By: #### C MP, BNP #### [facility] [address] [place] [address] Dr. Yaz Nur Chloride [Moles/Vol] 106 mmol/L Normal 98-107 [facility] Comment on above: Performed By: #### C MP, BNP #### [facility] [address] [place] [address] Dr. Yaz Nur CO2 [Moles/Vol] 28.5 mmol/L Normal 21.0-32.[address] [facility] Comment on above: Performed By: #### C MP, BNP #### [facility] [address] [place] [address] Dr. Yaz Nur Creatinine [Mass/Vol] 1.14 mg/dL Normal 0.70-1.30 [facility] Comment on above: Performed By: #### C MP, BNP #### [facility] [address] [place] [address] Dr. Yaz Nur EGFR-AF SUDANESE >60 Normal >=[address] [facility] Comment on above: Performed By: #### C MP, BNP #### [facility] [address] [place] [address] Dr. Yaz Nur EGFR-NON AF SUDANESE >60 Normal >=60 [facility] Comment on above: Performed By: #### C MP, BNP #### [facility] [address] [place] [address] Dr. Yaz Nur Globulin (S) [Mass/Vol] 2.9 g/dL Normal [facility] Comment on above: Performed By: #### C MP, BNP #### [facility] [address] [place] [address] Dr. Yaz Nur Glucose [Mass/Vol] 82 mg/dL Normal 74-106 [facility] Comment on above: Performed By: #### C MP, BNP #### [facility] [address] [place] [address] Dr. Yaz Nur Potassium [Moles/Vol] 4.3 mmol/L Normal 3.5-5.1 [facility] Comment on above: Performed By: #### C MP, BNP #### [facility] [address] [place] [address] Dr. Yaz Nur Protein [Mass/Vol] 6.8 g/dL Normal 6.4-8.2 [facility] Comment on above: Performed By: #### C MP, BNP #### [facility] Laboratory [address] [place] [address] Dr. Yaz Nur Sodium [Moles/Vol] 139 mmol/L Normal 136-145 [facility] Comment on above: Performed By: #### C MP, BNP #### [facility] Laboratory [address] [place] [address] Dr. Yaz Nur Urea nitrogen [Mass/Vol] 15.0 mg/dL Normal 7.0-18.0 [facility] Comment on above: Performed By: #### C MP, BNP #### [facility] Laboratory [address] [place] [address] Dr. Yaz Nur Urea nitrogen/Creatinine [Mass ratio] 13.2 mg/mg Normal [facility] Comment on above: Performed By: #### C MP, BNP #### [facility] Laboratory [address] [place] [address] Dr. Yaz Nur BNPon 08-17-2022 Natriuretic peptide B (Bld) [Mass/Vol] 274.0 pg/mL Normal <=1,800.0 [facility] Comment on above: Performed By: #### B BRASS MOLDER HELPER, CMP, HSTROPN #### [facility] Laboratory [address] [place] [address] Dr. Yaz Nur CARDIAC KANDIS 3-6on 2 CK [Catalytic activity/Vol] 190 U/L Normal 39-308 [facility] Comment on above: Performed By: #### C MP, BNP #### [facility] Laboratory [address] [place] [address] Dr. Yaz Nur CK.MB [Mass/Vol] 3.22 ng/mL Normal <=3.[address] [facility] Comment on above: Performed By: #### C MP, BNP #### [facility] Laboratory [address] [place] [address] Dr. Yaz Nur HSTROP 7.3 pg/mL Normal 4.0-76.1 [facility] Comment on above: Result Comment: CUT- OFF POINTS HAVE BEEN ESTABLISHED BASED ON THE FOURTH UNIVERSAL DEFINITIONS OF MYOCARDIAL INFARCTION. THE UPPER REFERENCE LIMIT (URL) OF TROPONIN, DEFINED THE 99TH PERCENTILE OF cTnI DISTRIBUTION IN A REFERENCE POPULATION, HAS BEEN CONFIRMED THE DECISION THRESHOLD FOR [place] DIAGNOSIS. Performed By: #### C MP, BNP #### [facility] Laboratory [address] [place] [address] Dr. Yaz Nur CBC AUTO DIFFon 08-17-2022 BASO # 0.1 103/ul Normal 0.0-0.1 [facility] Comment on above: Performed By: #### C BC #### [facility] [address] [place] [address] Dr. Yaz Nur Basophils/100 WBC (Bld) 1.5 % Normal 0.2-2.0 [facility] Comment on above: Performed By: #### C BC #### [facility] [address] [place] [address] Dr. Yaz Nur EO # 0.6 103/ul Normal 0.0-0.7 [facility] Comment on above: Performed By: #### C BC #### [facility] Laboratory [address] [place] [address] Dr. Yaz Nur Eosinophils/100 WBC (Bld) 9.1 % Critically high 0.9-7.0 [facility] Comment on above: Performed By: #### C BC #### [facility] [address] [place] [address] Dr. Yaz Nur Erythrocyte distribution width (RBC) [Ratio] 13.2 % Normal 11.0-15.0 [facility] Comment on above: Performed By: #### C BC #### [facility] [address] [place] [address] Dr. Yaz Nur Hematocrit (Bld) [Volume fraction] 47.2 % Normal 42.0-54.0 [facility] Comment on above: Performed By: #### C BC #### [facility] [address] [place] [address] Dr. Yaz Nur Hemoglobin (Bld) [Mass/Vol] 16.2 g/dL Normal 14.0-18.0 [facility] Comment on above: Performed By: #### C BC #### [facility] [address] [place] [address] Dr. Yaz Nur IG # 0.02 10e3/ul Normal 0.00-0.03 [facility] Comment on above: Performed By: #### C BC #### [facility] [address] [place] [address] Dr. Yaz Nur IG % 0.3 % Normal 0.0-0.5 [facility] Comment on above: Performed By: #### C BC #### [facility] [address] [place] [address] Dr. Yaz Nur LYMPH # 1.7 103/ul Normal 1.2-3.8 [facility] Comment on above: Performed By: #### C BC #### [facility] [address] [place] [address] Dr. Yaz Nur Lymphocytes/100 WBC (Bld) 27.1 % Normal 20.5-60.0 [facility] Comment on above: Performed By: #### C BC #### [facility] [address] [place] [address] Dr. Yaz Nur MANUAL DIFF REQ NO Normal [facility] Comment on above: Performed By: #### C BC #### [facility] [address] [place] [address] Dr. Yaz Nur MCH (RBC) [Entitic mass] 31.3 pg Normal 25.9-34.0 [facility] Comment on above: Performed By: #### C BC #### [facility] [address] [place] [address] Dr. Yaz Nur MCHC (RBC) [Mass/Vol] 34.3 g/dL Normal 29.9-35.2 [facility] Comment on above: Performed By: #### C BC #### [facility] [address] [address] [address] Yaz Nur MCV (RBC) [Entitic vol] 91.1 fL Normal 80.0-94.0 [facility] Comment on above: Performed By: #### C BC #### [facility] [address] [address] [address] Yaz Nur MONO # 0.6 103/ul Normal 0.3-0.8 [facility] Comment on above: Performed By: #### C BC #### [facility] [address] [place] [address] Dr. Yaz Nur Monocytes/100 WBC (Bld) 10.2 % Normal 1.7-12.0 [facility] Comment on above: Performed By: #### C BC #### [facility] [address] [place] [address] Dr. Yaz Nur NEUT # 3.2 103/ul Normal 1.4-6.5 [facility] Comment on above: Performed By: #### C BC #### [facility] [address] [place] [address] Dr. Yaz Nur Neutrophils/100 WBC (Bld) 51.8 % Normal 43.0-75.0 [facility] Comment on above: Performed By: #### C BC #### [facility] [address] [place] [address] Dr. Yaz Nur Platelet mean volume (Bld) [Entitic vol] 10.7 fL Normal 9.5-13.5 [facility] Comment on above: Performed By: #### C BC #### [facility] [address] [place] [address] Dr. Yaz Nur PLT 174 103/ul Normal 150-450 [facility] Comment on above: Performed By: #### C BC #### [facility] [address] [place] [address] Dr. Yaz Nur RBC 5.18 106/ul Normal 4.70-6.10 [facility] Comment on above: Performed By: #### C BC #### [facility] [address] [place] [address] Dr. Yaz Nur WBC 6.2 103/ul Normal 4.0-11.0 [facility] Comment on above: Performed By: #### C BC #### [facility] [address] [place] [address] Dr. Yaz Nur Covid-19 PCR ([facility])on SARS-CoV-2 (COVID-19) RNA SHIRLENE+probe Ql (Unsp [...] for this test is supported by the Endoscope Technician of Health and Human Service's declaration that [...] BNP #### [facility] [address] [place] [address] Dr. Yaz Nur PROF 14(COMP METB)on 022 Albumin [Mass/Vol] 4.3 g/dL Normal 3.4-5.0 [facility] Comment on above: Performed By: #### B BRASS MOLDER HELPER, CMP, HSTROPN #### [facility] [address] [place] [address] Dr. Yaz Nur Albumin/Globulin [Mass ratio] 1.7 {ratio} Normal [facility] Comment on above: Performed By: #### B BRASS MOLDER HELPER, CMP, HSTROPN #### [facility] [address] [address] [address] Yaz Nur ALP [Catalytic activity/Vol] 102 U/L Normal 46-116 [facility] Comment on above: Performed By: #### B BRASS MOLDER HELPER, CMP, HSTROPN #### [facility] [address] [address] [address] Yaz Nur ALT [Catalytic activity/Vol] 27 U/L Normal 16-63 [facility] Comment on above: Performed By: #### B BRASS MOLDER HELPER, CMP, HSTROPN #### [facility] [address] [address] [address] Yaz Nur Anion gap [Moles/Vol] 10.8 mmol/L Normal [facility] Comment on above: Performed By: #### B BRASS MOLDER HELPER, CMP, HSTROPN #### [facility] [address] [place] [address] Dr. Yaz Nur AST [Catalytic activity/Vol] 33 U/L Normal 15-37 [facility] Comment on above: Performed By: #### B BRASS MOLDER HELPER, CMP, HSTROPN #### [facility] [address] [address] [address] Yaz Nur Bilirubin [Mass/Vol] 1.0 mg/dL Normal 0.2-1.0 [facility] Comment on above: Performed By: #### B BRASS MOLDER HELPER, CMP, HSTROPN #### [facility] [address] [address] [address] Yaz Nur Calcium [Mass/Vol] 9.0 mg/dL Normal 8.5-10.1 [facility] Comment on above: Performed By: #### B BRASS MOLDER HELPER, CMP, HSTROPN #### [facility] [address] [address] [address] Yaz Nur Chloride [Moles/Vol] 105 mmol/L Normal 98-107 [facility] Comment on above: Performed By: #### B BRASS MOLDER HELPER, CMP, HSTROPN #### [facility] [address] [address] [address] Yaz Nur CO2 [Moles/Vol] 28.5 mmol/L Normal 21.0-32.[address] [facility] Comment on above: Performed By: #### B BRASS MOLDER HELPER, CMP, HSTROPN #### [facility] [address] [place] [address] Dr. Yaz Nur Creatinine [Mass/Vol] 0.92 mg/dL Normal 0.70-1.30 [facility] Comment on above: Performed By: #### B BRASS MOLDER HELPER, CMP, HSTROPN #### [facility] [address] [address] [address] Yaz Nur EGFR-AF SUDANESE >60 Normal >=[address] [facility] Comment on above: Performed By: #### B BRASS MOLDER HELPER, CMP, HSTROPN #### [facility] [address] [place] [address] Dr. Yaz Nur EGFR-NON AF SUDANESE >60 Normal >=60 [facility] Comment on above: Performed By: #### B BRASS MOLDER HELPER, CMP, HSTROPN #### [facility] [address] [place] [address] Dr. Yaz Nur Globulin (S) [Mass/Vol] 2.6 g/dL Normal [facility] Comment on above: Performed By: #### B BRASS MOLDER HELPER, CMP, HSTROPN #### [facility] [address] [place] [address] Dr. Yaz Nru Glucose [Mass/Vol] 108 mg/dL Critically high 74-106 [facility] Comment on above: Performed By: #### B BRASS MOLDER HELPER, CMP, HSTROPN #### [facility] [address] [place] [address] Dr. Yaz Nur Potassium [Moles/Vol] 4.3 mmol/L Normal 3.5-5.1 [facility] Comment on above: Result Comment: spec imen hemolysed Performed By: #### B BRASS MOLDER HELPER, CMP, HSTROPN #### [facility] [address] [place] [address] Dr. Yaz Nur Protein [Mass/Vol] 6.9 g/dL Normal 6.4-8.2 [facility] Comment on above: Performed By: #### B BRASS MOLDER HELPER, CMP, HSTROPN #### [facility] [address] [place] [address] Dr. Yaz Nur Sodium [Moles/Vol] 140 mmol/L Normal 136-145 [facility] Comment on above: Performed By: #### B BRASS MOLDER HELPER, CMP, HSTROPN #### [facility] [address] [place] [address] Dr. Yaz Nur Urea nitrogen [Mass/Vol] 16.0 mg/dL Normal 7.0-18.0 [facility] Comment on above: Performed By: #### B BRASS MOLDER HELPER, CMP, HSTROPN #### [facility] [address] [place] [address] Dr. Yaz Nur Urea nitrogen/Creatinine [Mass ratio] 17.4 mg/mg Normal [facility] Comment on above: Performed By: #### B BRASS MOLDER HELPER, CMP, HSTROPN #### [facility] [address] [place] [address] Dr. Yaz Nur PROTIMEon 08-17-2022 INR Coag (PPP) [Relative time] 1.03 {INR} Normal [facility] Comment on above: Performed By: #### P T, PTT #### [facility] [address] [place] [address] Dr. Yaz Nur INR GUIDELINES SEE BELOW Normal [facility] Comment on above: Result Comment: DAMON RED INR: 2.0 - 3.0 CONDITIONS NOT LISTED BELOW 2.5 - 3.5 FOR PROSTHETIC HEART VALVE REPLACEMENT 2.5 - 3.5 RECURRENT THROMBOSIS Performed By: #### P T, PTT #### [facility] [address] [place] [address] Dr. Yaz Nur PT Coag (PPP) [Time] 11.1 s Normal 9.0-11.6 [facility] Comment on above: Performed By: #### P T, PTT #### [facility] [address] [place] [address] Dr. Yaz Nur PTTon 08-17-2022 aPTT Coag (Bld) [Time] 27.7 s Normal 22.3-36.2 [facility] Comment on above: Performed By: #### P T, PTT #### [facility] [address] [place], [place] [address] Dr. Yaz Nur TROPONIN, HIGH SENSITIVITYon 08-17-2022 HSTROP 7.5 pg/mL Normal 4.0-76.1 [facility] Comment on above: Result Comment: CUT- OFF POINTS HAVE BEEN ESTABLISHED BASED ON THE FOURTH UNIVERSAL DEFINITIONS OF MYOCARDIAL INFARCTION. THE UPPER REFERENCE LIMIT (URL) OF TROPONIN, DEFINED THE 99TH PERCENTILE OF cTnI DISTRIBUTION IN A REFERENCE POPULATION, HAS BEEN CONFIRMED THE DECISION THRESHOLD FOR [place] DIAGNOSIS. Performed By: #### B BRASS MOLDER HELPER, CMP, HSTROPN #### [facility] [address] [place], [place] [address] Dr. Yaz Nur XR CHEST 1 Von [...] Start: 02-08-2018 End: 02-09-2018 Ambulatory DEFAULT PHYSICIAN Facility:[facility] Payers Date Payer Category Payer Medicare [id number] 1940 Unknown [id number] 1940 Unknown [id number] 1940 Unknown [id number] [id number] 1940 Unknown [id number] Unknown Summary Purpose Family History No Family History Records FoundNo Family History Records Found Advance Directives No Advanced Directives Records FoundNo Advanced Directives Records Found Additional Source Comments (unrecognized sect ion and content) No Status Records FoundNo Status Records Found INFORMATION SOURCE (unrecogn ized section and content) DATE CREATED AUTHOR 05/02/2018 [facility] DATE CREATED AUTHOR AUTHOR'S ORGANIZ ATION 09/16/2022 [facility] FOR RECORDS PERTAINING TO PATIENTS WHO [...] BE BASED ON THE PRIMARY CLINICAL RECORDS. [employer] provides no warranty or guarantee of the accuracy or completeness of information in this document.
[2024-09-29] MEDS: 0.9 % SODIUM CHLORIDE 1,000 ML 100 ML IV (04:00)
[2024-09-29 05:56] LABS: Hematocrit 45.2 % (42.0-54.0); Hemoglobin 15.4 g/dL (14.0-18.0); Mean Corpuscular HGB Conc 34.1 g/dL (29.9-35.2); Mean Corpuscular Hemoglobin 30.7 pg (25.9-34.0); Platelet Count 196 10^3/uL (150-450); Red Blood Count 5.02 10^6/uL (4.70-6.10); Red Cell Distribution Width 13.2 % (11.0-15.0); White Blood Count 7.5 10^3/uL (4.0-11.0)
--- NOTE | 2024-09-29 06:00 | ECG_ITS ---
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1940 Requested By: STEPHANE SMALLS Order Number: [id number] Reading MD: STEPHANE SMALLS Measurements Intervals [place] Rate: 60 P: 38 [place]: 217 QRS: -43 QRSD: 101 T: 62 QT: 442 QTc: 445 Interpretive Statements SINUS RHYTHM WITH FIRST DEGREE AV BLOCK WITH OCCASIONAL SUPRAVENTRICULAR PREMATURE COMPLEXES MARKED LEFT AXIS DEVIATION [QRS AXIS < -30] POSSIBLE ANTERIOR MYOCARDIAL INFARCTION [30 ms Q WAVE IN V3/V4, OR R < 0.2 mV IN V4], PROBABLY OLD Compared to ECG 09/29/2024 01:23:46 Ventricular premature complex(es) no longer present Myocardial infarct finding still present Electronically Signed On 09-29-2024 7:28:07 EST by STEPHANE SMALLS
[2024-09-29 06:14] LABS: Anion Gap 16.3; BUN Creatinine Ratio 14.5; Calcium 8.2 mg/dL (8.5-10.1); Carbon Dioxide 23.7 mmol/L (21.0-32.0); Chloride 107 mmol/L (98-107); Estimated GFR (African America 53 (>=60 mL/min/1.73m^2); Estimated GFR (Non-African Ame 44 (>=60 mL/min/1.73m^2); Glucose 100 mg/dL (74-106); Sodium 143 mmol/L (136-145); Troponin I High Sensitivity 22.3 pg/mL (4.0-76.1)
--- NOTE | 2024-09-29 08:07 | CA_ITS ---
Patient Name: ESPERANZA POLANCO MR#: [id number] : 1940 Exam Date: 09/29/2024 Ordering Doctor: DR STEPHANE SMALLS . ECHOCARDIOGRAM REPORT PROCEDURE: CA ECHO DOPPLER COMPLETE INDICATIONS: lateral wall ischemia on ecg COMPARISON: None. DESCRIPTION: COMPLETE ECHOCARDIOGRAM Real-time transthoracic echocardiography with 2D, M-mode, spectral and color flow Doppler performed. QUALITY: Technical quality was good. LEFT VENTRICLE: Normal chamber size. Borderline left ventricular hypertrophy. Global left ventricular systolic function is normal. Visual estimation of left ventricular ejection fraction is 65%. No regional wall motion abnormalities. LV EF: DIASTOLIC: Indeterminate diastolic function. ATRIAL SEPTUM: LEFT ATRIUM: Mild dilatation. RIGHT ATRIUM: Severe dilatation. RIGHT VENTRICLE: Normal chamber size. Normal right ventricular systolic function. TRICUSPID VALVE:Normal mobility and thickness. No stenosis with mild to moderate regurgitation. No evidence of pulmonary hypertension. RVSP 27mmHg MITRAL VALVE: Normal mobility and thickness. No evidence of mitral valve stenosis. There is no mitral annular calcification. No mitral regurgitation. AORTIC VALVE: Normal trileaflet appearance. No visible sclerosis. Normal leaflet mobility. No evidence of aortic valve stenosis. No aortic regurgitation. AORTIC ROOT: Normal diameter and appearance. Normal ascending aorta measuring 3.6cm. PULMONIC VALVE: Normal thickness and mobility. No stenosis. Trivial regurgitation. PERICARDIUM: No evidence of pericardial effusion. IVC: Collapes with inspirations. Normal size. PLEURA: CONCLUSION: Normal chamber size. Borderline left ventricular hypertrophy. Global left ventricular systolic function is normal. Visual estimation of left ventricular ejection fraction is 65%. No regional wall motion abnormalities. Indeterminate diastolic function. Normal right ventricular systolic function. No evidence of pulmonary hypertension. RVSP 27mmHg Mild to moderate tricuspid regurgitation Adult Echocardiography Procedure Report Left Ventricle LVEDD (3.7 - 5.6 cm): 4.07 cm LVESD (2.2 - 4.0 cm): 2.60 cm LVIVS thickness (0.6 - 1.2 cm): 1.09 cm LVPW thickness (0.5 - 1.0 cm): 0.79 cm e': 0.07 m/s E - e': 11.07 LVOT Max Gradient: 2.35 mm[Hg] LVOT Area (cm2): 0.77 m/s Peak Velocity (LVOT): 0.77 m/s Mean Velocity (LVOT): 0.53 m/s LVOT Diameter 2.24 cm Left Ventricular Ejection Fraction: 71.08 % Left Atrium LA Volume Index (2D A2C): 37.80 ml/m2 Left Atrium Systolic Dimension: 2.99 cm Mitral Valve MV E to A Ratio: 0.90 MV Max Gradient: MV Mean Gradient: Mitral Valve A-Wave Peak Velocity: 0.90 m/s Mitral Valve E-Wave Peak Velocity: 0.81 m/s Cardiovascular Orifice Area: Right Ventricle RV Internal Diastolic Dimension: 3.54 cm Aorta AO Root Diam: 3.48 cm Ascending Ao Diam: 3.59 cm Aortic Valve AoV Area (Peak Yogi): 2.73 cm2, 2.73 cm2 AoV Area (VTI): 3.34 cm2, 3.34 cm2 Deceleration [place]: Pressure Half-Time: Peak Velocity(Antegrade Flow): 1.10 m/s Peak Gradient(Antegrade Flow): 4.85 mm[Hg] Mean Velocity(Antegrade Flow): 0.79 m/s Mean Gradient(Antegrade Flow): 2.72 mm[Hg] Velocity Time Integral: 25.17 cm Tricuspid Valve Peak Velocity (Regurgitant Flow): 2.44 m/s, 2.38 m/s, 2.39 m/s Peak Velocity: Pulmonic Valve Mean Gradient: 1.27 mm[Hg], 1.35 mm[Hg] Mean Velocity: 0.52 m/s, 0.53 m/s Peak Velocity: 0.86 m/s Peak Gradient: 2.81 mm[Hg], 3.06 mm[Hg] Right Atrium Right Atrium Systolic Pressure: 59.19 ml, 59.19 ml Dictated by: Francesco Mcarthur MD on 09/29/2024 at 18:00 Approved by: Francesco Mcarthur MD on 09/29/2024 at 18:11
--- NOTE | 2024-09-29 08:10 | P.HP_ITS ---
HPI H&P: HPI History of Present Illness Chief complaint: chest pain Narrative: Patient presented to the emergency room with left-sided chest pain. Blood pressure and heart rate significantly elevated at home as well. Pain was associate with some shortness of breath, no diaphoresis no nausea. Workup in ER unremarkable with negative troponin, EKG without significant acute changes. When I saw patient up in the medical surgical floor, he was resting comfortably in bed, no further chest pain. Feels back to his normal self currently. He has not been up and ambulating however. Opioid HPI Opioid Management Most Recent Pain and Opioid Data: Last Pain Assessment 09/29/24 08:05 Last ORT Total Score 0 09/29/24 03:47 09/29/24 Last ORT Risk Category Low Risk 09/29/24 03:47 09/29/24 Review of Systems ROS Status of ROS 10 or more systems reviewed and unremark able except as noted in history and below PFSH PFS Medical History (Updated 09/29/24 @ 03:37 by Maricruz Betancourt RN) Hypertension ?I10 - Essential (primary) hypertension (ICD-10) History of left heart catheterization ?Z98.890 - Other specified postprocedural states (ICD-10) Chest pain, rule out acute myocardial infarction ?R07.9 - Chest pain, unspecified (ICD-10) Surgical History (Updated 09/29/24 @ 03:37 by Maricruz Betancourt RN) Hx of tonsillectomy ?Z90.89 - Acquired absence of other organs (ICD-10) H/O right knee surgery ?Z98.890 - Other specified postprocedural states (ICD-10) Family History (Updated 09/29/24 @ 03:38 by Maricruz Betancourt RN) Mother Family history of cancer Father Family history of hypertension Social History Within the past year, how often did you have a drink containing alcohol: never Score interpretation: A score less than 4 is consistent with normal alcohol consumption. 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 Highest level of school completed/degree received: high school graduate Are you now , , , , never or living with a partner: Little interest or pleasure in doing things: not at all Feeling down, depressed, or hopeless: not at all Feel stressed/tense/nervous/anxious/difficulty sleeping: not at all Do you think of yourself as: straight/heterosexual Gender Identity: male Meds Home Medications and Allergies Home Medications ?Medication ?Instructions ?Recorded ?Confirmed ?Type amlodipine 5 mg tablet 5 mg PO DAILY 05/10/24 09/28/24 History aspirin 81 mg chewable tablet 81 mg PO DAILY 05/10/24 09/28/24 History (Children's Aspirin) fenofibrate nanocrystallized 145 145 mg PO DAILY 05/10/24 09/28/24 History mg tablet isosorbide mononitrate 30 mg 30 mg PO QD #30 tabs 05/10/24 09/28/24 Rx tablet,extended release 24 hr nitroglycerin 0.4 mg sublingual 0.4 mg sublingual Q5M PRN chest 05/10/24 09/28/24 Rx tablet pain #20 tabs rosuvastatin 5 mg tablet 5 mg PO DAILY 05/10/24 09/28/24 History thyroid (pork) 90 mg tablet 90 mg PO DAILY 05/10/24 09/28/24 History ([place] Thyroid) vitamin E (dl, acetate) 400 unit PO DAILY 05/10/24 09/28/24 History Allergies Allergy/AdvReac Type Severity Reaction Status Date / Time No Known Drug Allergies Allergy Verified 09/28/24 22:46 Exam Constitutional Vital Signs, click to edit/add: Last Vital Signs Temp 98.0 F 09/29/24 08:05 Pulse 56 L 09/29/24 08:05 Resp 16 09/29/24 08:05 BP 115/77 09/29/24 08:05 Pulse Ox 94 L 09/29/24 08:05 O2 Del Method Room Air 09/29/24 08:05 Documenting provider has reviewed patient's vital signs: yes Common normals: no apparent distress Lymph Lymphatic: no lymphadenopathy noted Chest Common normals: inspection of chest normal Respiratory Common normals: normal respiratory effort and no retractions Cardio Common normals: regular rate and regular rhythm GI Common normals: Normal to inspection, nondistended, normoactive bowel sounds present, soft to palpation and non-tender Extremity Common normals: normal to inspection and no clubbing, cyanosis or edema Results Labs Labs: Short CBC 09/28/24 09/29/24 Range/Units 22:51 05:45 WBC 10.1 7.5 (4.0-11.0) 10^3/uL Hgb 17.4 15.4 (14.0-18.0) g/dL Hct 50.8 45.2 (42.0-54.0) % Plt Count 232 196 (150-450) 10^3/uL BMP 09/28/24 09/29/24 22:51 05:45 Sodium 143 143 Potassium 4.1 4.0 Chloride 105 107 Carbon Dioxide 23.4 23.7 BUN 18.0 22.0 H Creatinine 1.50 H 1.52 H Glucose 139 H 100 Calcium 9.6 8.2 L Assessment and Plan Assessment and Plan (1) Chest pain: (2) Hypercholesterolemia: (3) Coronary artery disease: (4) History of left heart catheterization: (5) Hypertension: (6) Chest pain, rule out acute myocardial infarction: Plan Admission findings: Sinus tachycardia, respiratory distress, acute kidney injury (baseline creatinine of 1.16, admission creatinine of 1.52 equals 131.0% above baseline), resulting in chest pain. Patient with known coronary artery disease secondary to hypercholesterolemia now with chest pain-check echocardiogram, troponins are negative, EKG this morning shows possible lateral wall ischemia, already on aspirin, will increase his Imdur. Without elevation in troponin, could stress as an outpatient, increased risk for complications based on age, but he is a very active 84-year-old Possible GERD-start patient on omeprazole, discharge patient on Protonix Thyroid nodules-will follow-up as an outpatient Hypertension-continue with home medications Hypothyroidism-monitor levels as an outpatient Admission status: Patient admitted with chest pain which is now resolved. Check echocardiogram. If echocardiogram is normal he will be discharged to home, is medically necessary treatment would only span 1 midnight. Maintain observational time period. If condition deteriorates, medically necessary treatment will thus span 2 midnights and will change patient to inpatient status
[2024-09-29 08:14] LABS: Alanine Aminotransferase 27 U/L (16-63); Albumin Globulin Ratio 1.3; Albumin Level 3.4 g/dL (3.4-5.0); Alkaline Phosphatase 69 U/L (46-116); Aspartate Amino Transferase 19 U/L (15-37); Bilirubin Direct 0.2 mg/dL (0.0-0.2); Bilirubin Total 0.6 mg/dL (0.2-1.0); Globulin 2.6 g/dL
--- NOTE | 2024-09-29 08:16 | P.DS_ITS ---
DS: Providers Provider Date of admission: 09/29/24 03:24 Primary care physician: Wicho Dominguez MD DS: Diagnosis Discharge Diagnosis (1) Chest pain: (2) Hypercholesterolemia: (3) Coronary artery disease: (4) History of left heart catheterization: (5) Hypertension: (6) Chest pain, rule out acute myocardial infarction: DS: Summary Time Spent with Patient Time attestation: Total time spent providing and/or coordinating discharge services: Exam Constitutional Vital Signs, click to edit/add: Last Vital Signs Temp 98.0 F 09/29/24 08:05 Pulse 56 L 09/29/24 08:05 Resp 16 09/29/24 08:05 BP 115/77 09/29/24 08:05 Pulse Ox 94 L 09/29/24 08:05 O2 Del Method Room Air 09/29/24 08:05 DS: Data Data Completed and Pending Labs on day of discharge: Labs from last 24 hours 09/29/24 09/29/24 09/28/24 05:45 01:20 22:51 WBC 7.5 10.1 RBC 5.02 5.67 Hgb 15.4 17.4 Hct 45.2 50.8 MCV 90.0 89.6 MCH 30.7 30.7 MCHC 34.1 34.3 RDW 13.2 13.0 Plt Count 196 232 MPV 10.0 10.3 Neut % (Auto) 75.2 H Lymph % (Auto) 15.2 L [place] % (Auto) 7.2 Eos % (Auto) 1.3 Baso % (Auto) 0.8 Neut # (Auto) 7.6 H Lymph # (Auto) 1.5 [place] # (Auto) 0.7 Eos # (Auto) 0.1 Baso # (Auto) 0.1 Abs Immat Gran (auto) 0.03 Imm/Tot Granulo (auto) 0.3 D-Dimer 0.95 H* Sodium 143 143 Potassium 4.0 4.1 Chloride 107 105 Carbon Dioxide 23.7 23.4 Anion Gap 16.3 18.7 BUN 22.0 H 18.0 Creatinine 1.52 H 1.50 H Est GFR ( Amer) 53 L 54 L Est GFR (Non-Af Amer) 44 L 44 L BUN/Creatinine Ratio 14.5 12.0 Glucose 100 139 H Calcium 8.2 L 9.6 Total Bilirubin 0.6 Direct Bilirubin 0.2 AST 19 ALT 27 Alkaline Phosphatase 69 Troponin I High Sens 22.3 17.6 15.8 Total Protein 6.0 L Albumin 3.4 Globulin 2.6 Albumin/Globulin Ratio 1.3 Discharge Plan Discharge Discharge Medications: No Action amlodipine 5 mg tablet 5 mg PO DAILY rosuvastatin 5 mg tablet 5 mg PO DAILY fenofibrate nanocrystallized 145 mg tablet 145 mg PO DAILY thyroid (pork) [[place] Thyroid] 90 mg tablet 90 mg PO DAILY aspirin [Children's Aspirin] 81 mg tablet,chewable 81 mg PO DAILY vitamin E (dl, acetate) 400 unit PO DAILY isosorbide mononitrate 30 mg Tablet Extended Release 24 Hr 30 mg PO QD Qty: 30 11RF nitroglycerin 0.4 mg tablet, sublingual 0.4 mg sublingual Q5M PRN (Reason: chest pain) Qty: 20 0RF Rx Instructions: do not exceed 3 doses per episode Print Language: Mongolian Follow Up Appointments: Dr Dominguez SundayOct 01 9am. [phone]
--- NOTE | 2024-09-29 08:17 | P.DS_ITS ---
DS: Providers Provider Date of admission: 09/29/24 03:24 Primary care physician: Wicho Dominguez MD DS: Diagnosis Discharge Diagnosis (1) Chest pain: (2) Hypercholesterolemia: (3) Coronary artery disease: (4) History of left heart catheterization: (5) Hypertension: (6) Chest pain, rule out acute myocardial infarction: Plan Admission findings: Sinus tachycardia, respiratory distress, acute kidney injury (baseline creatinine of 1.16, admission creatinine of 1.52 equals 131.0% above baseline), resulting in chest pain. Patient with known coronary artery disease secondary to hypercholesterolemia now with chest pain-check echocardiogram, troponins are negative, EKG this morning shows possible lateral wall ischemia, already on aspirin, will increase his Imdur. Without elevation in troponin, could stress as an outpatient, increased risk for complications based on age, but he is a very active 84-year-old Possible GERD-start patient on omeprazole, discharge patient on Protonix Thyroid nodules-will follow-up as an outpatient Hypertension-continue with home medications Hypothyroidism-monitor levels as an outpatient Admission status: Patient admitted with chest pain which is now resolved. Check echocardiogram. If echocardiogram is normal he will be discharged to home, is medically necessary treatment would only span 1 midnight. Maintain observational time period. If condition deteriorates, medically necessary treatment will thus span 2 midnights and will change patient to inpatient status ? DS: Summary Hospital Course Hospital Course: Patient was seen and evaluated in the emergency room secondary to chest pain, uncontrolled hypertension, sinus tachycardia. Chest pain resolved. Blood pressure heart rate improved. EKG change this morning does show some lateral wall changes, Imdur was increased, check echocardiogram today. If patient ambulating without chest pain, echocardiogram with a good ejection fraction, would likely discharge patient home in improving condition. Medications see this. Follow-up with me in the office within the next week. Status at Discharge Overall status at discharge: patient is back to baseline Time Spent with Patient Time attestation: Total time spent providing and/or coordinating discharge services: Time spent: greater than 30 minutes Exam Constitutional Vital Signs, click to edit/add: Last Vital Signs Temp 98.0 F 09/29/24 08:05 Pulse 56 L 09/29/24 08:05 Resp 16 09/29/24 08:05 BP 115/77 09/29/24 08:05 Pulse Ox 94 L 09/29/24 08:05 O2 Del Method Room Air 09/29/24 08:05 Documenting provider has reviewed patient's vital signs: yes Common normals: no apparent distress Lymph Lymphatic: no lymphadenopathy noted Chest Common normals: inspection of chest normal Respiratory Common normals: normal respiratory effort and no retractions Cardio Common normals: regular rate and regular rhythm GI Common normals: Normal to inspection, nondistended, normoactive bowel sounds present, soft to palpation and non-tender Extremity Common normals: normal to inspection and no clubbing, cyanosis or edema DS: Data Data Completed and Pending Labs on day of discharge: Labs from last 24 hours 09/29/24 09/29/24 09/28/24 05:45 01:20 22:51 WBC 7.5 10.1 RBC 5.02 5.67 Hgb 15.4 17.4 Hct 45.2 50.8 MCV 90.0 89.6 MCH 30.7 30.7 MCHC 34.1 34.3 RDW 13.2 13.0 Plt Count 196 232 MPV 10.0 10.3 Neut % (Auto) 75.2 H Lymph % (Auto) 15.2 L [place] % (Auto) 7.2 Eos % (Auto) 1.3 Baso % (Auto) 0.8 Neut # (Auto) 7.6 H Lymph # (Auto) 1.5 [place] # (Auto) 0.7 Eos # (Auto) 0.1 Baso # (Auto) 0.1 Abs Immat Gran (auto) 0.03 Imm/Tot Granulo (auto) 0.3 D-Dimer 0.95 H* Sodium 143 143 Potassium 4.0 4.1 Chloride 107 105 Carbon Dioxide 23.7 23.4 Anion Gap 16.3 18.7 BUN 22.0 H 18.0 Creatinine 1.52 H 1.50 H Est GFR ( Amer) 53 L 54 L Est GFR (Non-Af Amer) 44 L 44 L BUN/Creatinine Ratio 14.5 12.0 Glucose 100 139 H Calcium 8.2 L 9.6 Total Bilirubin 0.6 Direct Bilirubin 0.2 AST 19 ALT 27 Alkaline Phosphatase 69 Troponin I High Sens 22.3 17.6 15.8 Total Protein 6.0 L Albumin 3.4 Globulin 2.6 Albumin/Globulin Ratio 1.3 Discharge Plan Discharge Disposition: Home, Self-Care Discharge Medications: New isosorbide mononitrate 30 mg Tablet Extended Release 24 Hr 60 mg PO DAILY Qty: 60 11RF pantoprazole [Protonix] 40 mg tablet,delayed release (DR/EC) 40 mg PO DAILY Qty: 30 11RF Continued amlodipine 5 mg tablet 5 mg PO DAILY rosuvastatin 5 mg tablet 5 mg PO DAILY fenofibrate nanocrystallized 145 mg tablet 145 mg PO DAILY thyroid (pork) [[place] Thyroid] 90 mg tablet 90 mg PO DAILY aspirin [Children's Aspirin] 81 mg tablet,chewable 81 mg PO DAILY vitamin E (dl, acetate) 400 unit PO DAILY nitroglycerin 0.4 mg tablet, sublingual 0.4 mg sublingual Q5M PRN (Reason: chest pain) Qty: 20 0RF Rx Instructions: do not exceed 3 doses per episode Discontinued isosorbide mononitrate 30 mg Tablet Extended Release 24 Hr 30 mg PO QD Qty: 30 11RF Activity: resume usual activities as tolerated Diet: advance to your usual diet Print Language: Kenyan Patient Instructions: Isosorbide Mononitrate (By mouth) (Imdur, Imdur ER, Ismo), Pantoprazole (By mouth), Chest Pain (DC) Forms: Portal Instructions Follow Up Appointments: Dr Dominguez SundayOct 01 9am. [phone] Discharge Date/Time: 09/29/24 13:25
[2024-09-29] MEDS: FENOFIBRATE 54 MG TABLET 162 MG PO (08:23)
[2024-09-29] MEDS: OMEPRAZOLE 40 MG CAPSULE.DR PO (08:25)
[2024-09-29] MEDS: ISOSORBIDE MONONITRATE 30 MG TAB.ER.24H 60 MG PO (08:25)
[2024-09-29] MEDS: ASPIRIN 81 MG TAB.CHEW PO (08:25)
[2024-09-29] MEDS: VITAMIN E (DL,TOCOPHERYL ACET) 180 MG (400 IU) CAPSULE PO (08:25)
[2024-09-29] MEDS: AMLODIPINE BESYLATE 5 MG TABLET PO (08:25)
[2024-09-29] MEDS: THYROID,PORK 30 MG TABLET 90 MG PO (08:27)
--- NOTE | 2024-09-29 10:55 | CM.NOTE ---
Medicare Outpatient Observation Notice discussed with pt, pt verbalizes understanding and signs paper. Original given to pt and copy placed in pt's chart.
--- NOTE | 2024-09-30 13:06 | CM.DCFOLLOWU ---
Person spoke with: Tonya How are you feeling? Much better How is your pain? No pain Did you understand your discharge instructions? Yes Do you have any questions about your discharge instructions? No Were you given any prescriptions at discharge? Yes Were you able to get your prescriptions filled? Yes Do you understand how to take your medications as ordered? Yes Do you have any questions about your follow up appointment and do you plan to keep your follow up appointment? No I see Dr. Dominguez tomorrow Is there anything else that you would like to discuss? No Questions/Comments/Concerns/Other:
== END 2024-09-29 13:25 | disposition home or self-care (01) ==
LOC: ER 09-29 02:11 → MS 09-29 03:24
PROVIDERS: Registered Nurse; Admitting Provider Family Medicine; Emergency Provider Internal Medicine; PCP Family Medicine; Visit Provider Family Medicine
DX: R07.9 Chest pain, unspecified (principal); E78.00 Pure hypercholesterolemia, unspecified; I25.10 Atherosclerotic heart disease of native coronary artery without angina pectoris; I10 Essential (primary) hypertension; R00.0 Tachycardia, unspecified; R06.03 Acute respiratory distress; N17.9 Acute kidney failure, unspecified; E04.1 Nontoxic single thyroid nodule; E03.9 Hypothyroidism, unspecified; Z79.82 Long term (current) use of aspirin
CPT/HCPCS: 36415; 71045; 71275; 80048; 80076; 84484; 85025; 85027; 85378; 93005; 93306; 99285; G0378; Q9966

== ENCOUNTER 2024-10-04 11:03 | Emergency (ER) | payer MEDICARE, SELFPAY ==
[2024-10-04] VITALS (10 sets, daily range): BP systolic 101–128; BP diastolic 65–82; PULSE 43–101; TEMP 36.4; O2SAT 95–99; BMI 28.1
--- OUTSIDE RECORDS SUMMARY | 2024-10-04 11:11 | XMS_ITS | CCD ---
Author Organization 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; Translations: [Old [...] 2 Episodic Other aftercare (1 source) 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 Yaz Nur Prostate specific Ag [Mass/Vol] 2.7 ng/mL Normal 0.0-4.0 [facility] Comment on above: Result Comment: Cooper MAY methodology. . According to the [employer], Serum PSA should decrease and [...] Performed By: #### C MP, BNP #### [facility] [address] [place], [place] [address] Dr. Yaz Nur PSA, Free 1.19 ng/mL Normal N/A [facility] Comment on above: Result Comment: Cooper MAY methodology. Performed By: #### C MP, BNP #### [facility] [address] [place] [address] Dr. Yaz Nur CBC AUTO DIFFon 09-09-2022 BASO # 0.1 103/ul Normal 0.0-0.1 [facility] Comment on above: Performed By: #### C MP, BNP #### [facility] [address] [place] [address] Dr. Yaz Nur Basophils/100 WBC (Bld) 1.0 % Normal 0.2-2.0 [facility] Comment on above: Performed By: #### C MP, BNP #### [facility] [address] [place] [address] Dr. Yaz Nur EO # 0.5 103/ul Normal 0.0-0.7 [facility] Comment on above: Performed By: #### C MP, BNP #### [facility] [address] [place] [address] Dr. Yaz Nur Eosinophils/100 WBC (Bld) 8.8 % Critically high 0.9-7.0 [facility] Comment on above: Performed By: #### C MP, BNP #### [facility] [address] [place] [address] Dr. Yaz Nur Erythrocyte distribution width (RBC) [Ratio] 13.4 % Normal 11.0-15.0 [facility] Comment on above: Performed By: #### C MP, BNP #### [facility] [address] [place] [address] Dr. Yaz Nur Hematocrit (Bld) [Volume fraction] 46.8 % Normal 42.0-54.0 [facility] Comment on above: Performed By: #### C MP, BNP #### [facility] [address] [place] [address] Dr. Yaz Nur Hemoglobin (Bld) [Mass/Vol] 16.2 g/dL Normal 14.0-18.0 [facility] Comment on above: Performed By: #### C MP, BNP #### [facility] [address] [place] [address] Dr. Yaz Nur IG # 0.01 10e3/ul Normal 0.00-0.03 [facility] Comment on above: Performed By: #### C MP, BNP #### [facility] [address] [place] [address] Dr. Yaz Nur IG % 0.2 % Normal 0.0-0.5 [facility] Comment on above: Performed By: #### C MP, BNP #### [facility] [address] [place] [address] Dr. Yaz Nur LYMPH # 1.5 103/ul Normal 1.2-3.8 [facility] Comment on above: Performed By: #### C MP, BNP #### [facility] [address] [place] [address] Dr. Yaz Nur Lymphocytes/100 WBC (Bld) 29.2 % Normal 20.5-60.0 [facility] Comment on above: Performed By: #### C MP, BNP #### [facility] [address] [place] [address] Dr. Yaz Nur MANUAL DIFF REQ NO Normal [facility] Comment on above: Performed By: #### C MP, BNP #### [facility] [address] [place] [address] Dr. Yaz Nur MCH (RBC) [Entitic mass] 31.4 pg Normal 25.9-34.0 [facility] Comment on above: Performed By: #### C MP, BNP #### [facility] [address] [place] [address] Dr. Yaz Nur MCHC (RBC) [Mass/Vol] 34.6 g/dL Normal 29.9-35.2 [facility] Comment on above: Performed By: #### C MP, BNP #### [facility] [address] [place] [address] Dr. Yaz Nur MCV (RBC) [Entitic vol] 90.7 fL Normal 80.0-94.0 [facility] Comment on above: Performed By: #### C MP, BNP #### [facility] [address] [place] [address] Dr. Yaz Nur MONO # 0.6 103/ul Normal 0.3-0.8 [facility] Comment on above: Performed By: #### C MP, BNP #### [facility] [address] [place] [address] Dr. Yaz Nur Monocytes/100 WBC (Bld) 11.2 % Normal 1.7-12.0 [facility] Comment on above: Performed By: #### C MP, BNP #### [facility] [address] [place] [address] Dr. Yaz Nur NEUT # 2.5 103/ul Normal 1.4-6.5 [facility] Comment on above: Performed By: #### C MP, BNP #### [facility] [address] [place] [address] Dr. Yaz Nur Neutrophils/100 WBC (Bld) 49.6 % Normal 43.0-75.0 [facility] Comment on above: Performed By: #### C MP, BNP #### [facility] [address] [place] [address] Dr. Yaz Nur Platelet mean volume (Bld) [Entitic vol] 9.9 fL Normal 9.5-13.5 [facility] Comment on above: Performed By: #### C MP, BNP #### [facility] [address] [place] [address] Dr. Yaz Nur PLT 157 103/ul Normal 150-450 [facility] Comment on above: Performed By: #### C MP, BNP #### [facility] [address] [place] [address] Dr. Yaz Nur RBC 5.16 106/ul Normal 4.70-6.10 [facility] Comment on above: Performed By: #### C MP, BNP #### [facility] [address] [place] [address] Dr. Yaz Nur WBC 5.1 103/ul Normal 4.0-11.0 [facility] Comment on above: Performed By: #### C MP, BNP #### [facility] [address] [place] [address] Dr. Yaz Nur CULTURE URINEon 09-09-2022 CULTURE URINE Culture Observations : LIGHT GROWTH OF MIXED SKIN COCO. NO POTENTIAL PATHOGENS SEEN. Normal [facility] Comment on above: Performed By: #### C MP, BNP #### [facility] [address] [place] [address] Dr. Yaz Nur PROTIMEon 09-09-2022 INR Coag (PPP) [Relative time] 1.06 {INR} Normal [facility] Comment on above: Performed By: #### C MP, BNP #### [facility] [address] [place] [address] Dr. Yaz Nur INR GUIDELINES SEE BELOW Normal [facility] [place] [facility] Comment on above: Result Comment: DAMON RED INR: 2.0 - 3.0 CONDITIONS NOT LISTED BELOW 2.5 - 3.5 FOR PROSTHETIC HEART VALVE REPLACEMENT 2.5 - 3.5 RECURRENT THROMBOSIS Performed By: #### C MP, BNP #### [facility] [address] [place] [address] Dr. Yaz Nur PT Coag (PPP) [Time] 11.4 s Normal 9.0-11.6 [facility] Comment on above: Performed By: #### C MP, BNP #### [facility] [address] [place] [address] Dr. Yaz Nur PTTon 09-09-2022 aPTT Coag (Bld) [Time] 30.0 s Normal 22.3-36.2 [facility] Comment on above: Performed By: #### C MP, BNP #### [facility] [address] [place] [address] Dr. Yaz Nur UA RANDOM W/MICROSCOPICon BACTERIA NONE SEEN Normal NONE SEEN [facility] Comment on above: Performed By: #### C MP, BNP #### [facility] [address] [place] [address] Dr. Yaz Nur Bilirubin Ql (U) Negative Normal NEGATIVE [facility] Comment on above: Performed By: #### C MP, BNP #### [facility] [address] [place] [address] Dr. Yaz Nur CAST NONE SEEN Normal NONE SEEN [facility] Comment on above: Performed By: #### C MP, BNP #### [facility] [address] [place] [address] Dr. Yaz Nur Clarity (U) CLEAR Normal CLEAR [facility] Comment on above: Performed By: #### C MP, BNP #### [facility] [address] [place] [address] Dr. Yaz Nur Color (U) YELLOW Normal YELLOW [facility] Comment on above: Performed By: #### C MP, BNP #### [facility] [address] [place] [address] Dr. Yaz Nur Crystals LM Nom (Urine sed) NONE SEEN Normal NONE SEEN [facility] Comment on above: Performed By: #### C MP, BNP #### [facility] [address] [place] [address] Dr. Yaz Nur Epithelial cells LM Ql (Urine sed) RARE Normal NONE SEEN /RARE [facility] Comment on above: Performed By: #### C MP, BNP #### [facility] [address] [place] [address] Dr. Yaz Nur Glucose Ql (U) Negative Normal NEGATIVE [facility] [place] [facility] Comment on above: Performed By: #### C MP, BNP #### [facility] [address] [place] [address] Dr. Yaz Nur Hemoglobin Ql (U) Negative Normal NEGATIVE [facility] Comment on above: Performed By: #### C MP, BNP #### [facility] [address] [place] [address] Dr. Yaz Nur Ketones Ql (U) Negative Normal NEGATIVE [facility] [place] [facility] Comment on above: Performed By: #### C MP, BNP #### [facility] [address] [place] [address] Dr. Yaz Nur LEUKOCYTES Negative Normal NEGATIVE [facility] Comment on above: Performed By: #### C MP, BNP #### [facility] [address] [place] [address] Dr. Yaz Nur MUCOUS NONE SEEN Normal NONE SEEN [facility] Comment on above: Performed By: #### C MP, BNP #### [facility] [address] [place] [address] Dr. Yaz Nur Nitrite Ql (U) Negative Normal NEGATIVE [facility] [place] [facility] Comment on above: Performed By: #### C MP, BNP #### [facility] [address] [place] [address] Dr. Yaz Nur pH (U) 5.5 [pH] Normal 5-9 [facility] Comment on above: Performed By: #### C MP, BNP #### [facility] [address] [place] [address] Dr. Yaz Nur RBC 0-2 Normal 0-2 [facility] Comment on above: Performed By: #### C MP, BNP #### [facility] [address] [place] [address] Dr. Yaz Nur SPEC GRAVITY >=1.030 Abnormal 1.005-<=1.025 [facility] Comment on above: Performed By: #### C MP, BNP #### [facility] [address] [place] [address] Dr. Yaz Nur UA PROTEIN Negative Normal NEGATIVE/ TRACE [facility] Comment on above: Performed By: #### C MP, BNP #### [facility] [address] [place] [address] Dr. Yaz Nur Urobilinogen Qn (U) 0.2 {Joseph'U}/dL Normal 0.2 - 1. 0 [facility] Comment on above: Performed By: #### C MP, BNP #### [facility] [address] [place] [address] Dr. Yaz Nur WBC 0-2 Abnormal NONE SEEN [facility] Comment on above: Performed By: #### C MP, BNP #### [facility] [address] [place] [address] Dr. Yaz Nur BNPon 08-18-2022 Natriuretic peptide B (Bld) [Mass/Vol] 228.0 pg/mL Normal <=1,800.0 [facility] Comment on above: Performed By: #### C MP, BNP #### [facility] [address] [place] [address] Dr. Yaz Nur CARDIAC KANDIS 3-6on 2 CK [Catalytic activity/Vol] 165 U/L Normal 39-308 [facility] Comment on above: Performed By: #### C MREP #### [facility] [address] [place] [address] Dr. Yaz Nur CK.MB [Mass/Vol] 2.85 ng/mL Normal <=3.60 [facility] Comment on above: Performed By: #### C MREP #### [facility] [address] [place] [address] Dr. Yaz Nur HSTROP 6.7 pg/mL Normal 4.0-76.1 [facility] Comment on above: Result Comment: CUT- OFF POINTS HAVE BEEN ESTABLISHED BASED ON THE FOURTH UNIVERSAL DEFINITIONS OF MYOCARDIAL INFARCTION. THE UPPER REFERENCE LIMIT (URL) OF TROPONIN, DEFINED THE 99TH PERCENTILE OF cTnI DISTRIBUTION IN A REFERENCE POPULATION, HAS BEEN CONFIRMED THE DECISION THRESHOLD FOR CT DIAGNOSIS. Performed By: #### C MREP #### [facility] [address] [place] [address] Dr. Yaz Nur CBC AUTO DIFFon 08-18-2022 BASO # 0.1 103/ul Normal 0.0-0.1 [facility] Comment on above: Performed By: #### C BC #### [facility] [address] [place] [address] Dr. Yaz Nur Basophils/100 WBC (Bld) 1.3 % Normal 0.2-2.0 [facility] Comment on above: Performed By: #### C BC #### [facility] [address] [place] [address] Dr. Yaz Nur EO # 0.6 103/ul Normal 0.0-0.7 [facility] Comment on above: Performed By: #### C BC #### [facility] [address] [place] [address] Dr. Yaz Nur Eosinophils/100 WBC (Bld) 9.9 % Critically high 0.9-7.0 [facility] Comment on above: Performed By: #### C BC #### [facility] [address] [place] [address] Dr. Yaz Nur Erythrocyte distribution width (RBC) [Ratio] 13.2 % Normal 11.0-15.0 [facility] Comment on above: Performed By: #### C BC #### [facility] [address] [place] [address] Dr. Yaz Nur Hematocrit (Bld) [Volume fraction] 47.0 % Normal 42.0-54.0 [facility] Comment on above: Performed By: #### C BC #### [facility] [address] [place] [address] Dr. Yaz Nur Hemoglobin (Bld) [Mass/Vol] 15.8 g/dL Normal 14.0-18.0 [facility] Comment on above: Performed By: #### C BC #### [facility] [address] [place] [address] Dr. Yaz Nur IG # 0.02 10e3/ul Normal 0.00-0.03 [facility] Comment on above: Performed By: #### C BC #### [facility] [address] [place] [address] Dr. Yaz Nur IG % 0.3 % Normal 0.0-0.5 [facility] Comment on above: Performed By: #### C BC #### [facility] [address] [place] [address] Dr. Yaz Nur LYMPH # 1.8 103/ul Normal 1.2-3.8 [facility] Comment on above: Performed By: #### C BC #### [facility] [address] [place] [address] Dr. Yaz Nur Lymphocytes/100 WBC (Bld) 28.1 % Normal 20.5-60.0 [facility] Comment on above: Performed By: #### C BC #### [facility] [address] [place] [address] Dr. Yaz Nur MANUAL DIFF REQ NO Normal [facility] Comment on above: Performed By: #### C BC #### [facility] [address] [place] [address] Dr. Yaz Nur MCH (RBC) [Entitic mass] 31.3 pg Normal 25.9-34.0 [facility] Comment on above: Performed By: #### C BC #### [facility] [address] [place] [address] [address] Yaz Nur MCHC (RBC) [Mass/Vol] 33.6 g/dL Normal 29.9-35.2 [facility] Comment on above: Performed By: #### C BC #### [facility] [address] [place] [address] [address] Yaz Nur MCV (RBC) [Entitic vol] 93.1 fL Normal 80.0-94.0 [facility] Comment on above: Performed By: #### C BC #### [facility] [address] [place] [address] Dr. Yaz Nur MONO # 0.6 103/ul Normal 0.3-0.8 [facility] Comment on above: Performed By: #### C BC #### [facility] [address] [place] [address] Dr. Yaz Nur Monocytes/100 WBC (Bld) 9.7 % Normal 1.7-12.0 [facility] Comment on above: Performed By: #### C BC #### [facility] [address] [place] [address] Dr. Yaz Nur NEUT # 3.2 103/ul Normal 1.4-6.5 [facility] Comment on above: Performed By: #### C BC #### [facility] [address] [place] [address] Dr. Yaz Nur Neutrophils/100 WBC (Bld) 50.7 % Normal 43.0-75.0 [facility] Comment on above: Performed By: #### C BC #### [facility] [address] [place] [address] [address] Yaz Nur Platelet mean volume (Bld) [Entitic vol] 9.9 fL Normal 9.5-13.5 [facility] Comment on above: Performed By: #### C BC #### [facility] [address] [place] [address] [address] Yaz Nur PLT 144 103/ul Critically low 150-450 [facility] Comment on above: Performed By: #### C BC #### [facility] [address] [place] [address] [address] Yaz Nur RBC 5.05 106/ul Normal 4.70-6.10 [facility] Comment on above: Performed By: #### C BC #### [facility] [address] [place] [id number] Yaz Nur WBC 6.4 103/ul Normal 4.0-11.0 [facility] Comment on above: Performed By: #### C BC #### [facility] [address] [id number] Yaz Nur ECHOCARDIO M/2D COMPLETEon 1 ECHOCARDIO M/2D COMPLETE Patient: ESPERANZA POLANCO Exam Date: 08/18/2022 : 1940 Gender:M Ordering : DR STEPHANE SMALLS . Admission #: [id number] Family : Order #: [id number] CLICK HERE TO VIEW EXAM ECHOCARDIOGRAM REPORT [...] Jaimes M.D. on 08/22/2022 at 07:53 Normal [facility] PROF 14(COMP METB)on 08-18- 022 Albumin [Mass/Vol] 3.9 g/dL Normal 3.4-5.0 [facility] Comment on above: Performed By: #### C MP, BNP #### [facility] [address] [place] [address] [address] Yaz Nur Albumin/Globulin [Mass ratio] 1.3 {ratio} [facility] Comment on above: Performed By: #### C MP, BNP #### [facility] [address] [place] [address] Dr. Yaz Nur ALP [Catalytic activity/Vol] 94 U/L Normal 46-116 [facility] Comment on above: Performed By: #### C MP, BNP #### [facility] [address] [place] [address] [address] Yaz Nur ALT [Catalytic activity/Vol] 21 U/L Normal 16-63 [facility] Comment on above: Performed By: #### C MP, BNP #### [facility] [address] [place] [address] [address] Yaz Nur Anion gap [Moles/Vol] 8.8 mmol/L Normal [facility] Comment on above: Performed By: #### C MP, BNP #### [facility] [address] [place] [address] [address] Yaz Nur AST [Catalytic activity/Vol] 16 U/L Normal 15-37 [facility] Comment on above: Performed By: #### C MP, BNP #### [facility] [address] [place] [address] [address] Yaz Nur Bilirubin [Mass/Vol] 1.0 mg/dL Normal 0.2-1.0 [facility] Comment on above: Performed By: #### C MP, BNP #### [facility] [address] [place] [address] [address] Yaz Nur Calcium [Mass/Vol] 8.6 mg/dL Normal 8.5-10.1 [facility] Comment on above: Performed By: #### C MP, BNP #### [facility] [address] [place] [address] Dr. Yaz Nur Chloride [Moles/Vol] 106 mmol/L Normal 98-107 [facility] Comment on above: Performed By: #### C MP, BNP #### [facility] [address] [place] [address] Dr. Yaz Nur CO2 [Moles/Vol] 28.5 mmol/L Normal 21.0-32.0 [facility] Comment on above: Performed By: #### C MP, BNP #### [facility] [address] [place] [address] Dr. Yaz Nur Creatinine [Mass/Vol] 1.14 mg/dL Normal 0.70-1.30 [facility] Comment on above: Performed By: #### C MP, BNP #### [facility] [address] [place] [address] Dr. Yaz Nur EGFR-AF NAMIBIAN >60 Normal >=60 [facility] Comment on above: Performed By: #### C MP, BNP #### [facility] [address] [place] [address] Dr. Yaz Nur EGFR-NON AF NAMIBIAN >60 Normal >=60 [facility] Comment on above: Performed By: #### C MP, BNP #### [facility] [address] [place] [address] Dr. Yaz Nur Globulin (S) [Mass/Vol] 2.9 g/dL Normal [facility] Comment on above: Performed By: #### C MP, BNP #### [facility] [address] [place] [address] Dr. Yaz Nur Glucose [Mass/Vol] 82 mg/dL Normal 74-106 [facility] Comment on above: Performed By: #### C MP, BNP #### [facility] [address] [place] [address] Dr. Yaz Nur Potassium [Moles/Vol] 4.3 mmol/L Normal 3.5-5.1 [facility] Comment on above: Performed By: #### C MP, BNP #### [facility] [address] [place] [address] Dr. Yaz Nur Protein [Mass/Vol] 6.8 g/dL Normal 6.4-8.2 [facility] Comment on above: Performed By: #### C MP, BNP #### [facility] [address] [place] [address] Dr. Yaz Nur Sodium [Moles/Vol] 139 mmol/L Normal 136-145 [facility] Comment on above: Performed By: #### C MP, BNP #### [facility] [address] [place] [address] Dr. Yaz Nur Urea nitrogen [Mass/Vol] 15.0 mg/dL Normal 7.0-18.0 [facility] Comment on above: Performed By: #### C MP, BNP #### [facility] [address] [place] [address] Dr. Yaz Nur Urea nitrogen/Creatinine [Mass ratio] 13.2 mg/mg Normal [facility] Comment on above: Performed By: #### C MP, BNP #### [facility] [address] [place] [address] Dr. Yaz Nur BNPon 08-17-2022 Natriuretic peptide B (Bld) [Mass/Vol] 274.0 pg/mL Normal <=1,800.0 [facility] Comment on above: Performed By: #### B BUSINESS ADMINISTRATION TEACHER, CMP, HSTROPN #### [facility] [address] [place] [address] Dr. Yaz Nur CARDIAC KANDIS 3-6on 2 CK [Catalytic activity/Vol] 190 U/L Normal 39-308 [facility] Comment on above: Performed By: #### C MP, BNP #### [facility] [address] [place] [address] Dr. Yaz Nur CK.MB [Mass/Vol] 3.22 ng/mL Normal <=3.60 [facility] Comment on above: Performed By: #### C MP, BNP #### [facility] [address] [place] [address] Dr. Yaz Nur HSTROP 7.3 pg/mL Normal 4.0-76.1 [facility] Comment on above: Result Comment: CUT- OFF POINTS HAVE BEEN ESTABLISHED BASED ON THE FOURTH UNIVERSAL DEFINITIONS OF MYOCARDIAL INFARCTION. THE UPPER REFERENCE LIMIT (URL) OF TROPONIN, DEFINED THE 99TH PERCENTILE OF cTnI DISTRIBUTION IN A REFERENCE POPULATION, HAS BEEN CONFIRMED THE DECISION THRESHOLD FOR CT DIAGNOSIS. Performed By: #### C MP, BNP #### [facility] [address] [place] [address] Dr. Yaz Nur CBC AUTO DIFFon 08-17-2022 BASO # 0.1 103/ul Normal 0.0-0.1 [facility] Comment on above: Performed By: #### C BC #### [facility] [address] [place] [address] Dr. Yaz Nur Basophils/100 WBC (Bld) 1.5 % Normal 0.2-2.0 [facility] Comment on above: Performed By: #### C BC #### [facility] [address] [place] [address] Dr. Yaz Nur EO # 0.6 103/ul Normal 0.0-0.7 [facility] Comment on above: Performed By: #### C BC #### [facility] [address] [place] [address] Dr. Yaz Nur Eosinophils/100 WBC (Bld) 9.1 % Critically high 0.9-7.0 [facility] Comment on above: Performed By: #### C BC #### [facility] [address] [place] [address] Dr. Yaz Nur Erythrocyte distribution width (RBC) [Ratio] 13.2 % Normal 11.0-15.0 [facility] Comment on above: Performed By: #### C BC #### [facility] [address] [place] [address] Dr. Yaz Nur Hematocrit (Bld) [Volume fraction] 47.2 % Normal 42.0-54.0 [facility] Comment on above: Performed By: #### C BC #### [facility] [address] [place] [address] Dr. Yaz Nur Hemoglobin (Bld) [Mass/Vol] 16.2 g/dL Normal 14.0-18.0 [facility] Comment on above: Performed By: #### C BC #### [facility] [address] [place] [address] Dr. Yaz Nur IG # 0.02 10e3/ul Normal 0.00-0.03 [facility] Comment on above: Performed By: #### C BC #### [facility] [address] [place] [address] Dr. Yaz Nur IG % 0.3 % Normal 0.0-0.5 [facility] Comment on above: Performed By: #### C BC #### [facility] [address] [place] [address] Dr. Yaz Nur LYMPH # 1.7 103/ul Normal 1.2-3.8 [facility] Comment on above: Performed By: #### C BC #### [facility] [address] [place] [address] Dr. Yaz Nur Lymphocytes/100 WBC (Bld) 27.1 % Normal 20.5-60.0 [facility] Comment on above: Performed By: #### C BC #### [facility] [address] [place] [address] Dr. Yaz Nur MANUAL DIFF REQ NO Normal [facility] Comment on above: Performed By: #### C BC #### [facility] [address] [place] [address] Dr. Yaz Nur MCH (RBC) [Entitic mass] 31.3 pg Normal 25.9-34.0 [facility] Comment on above: Performed By: #### C BC #### [facility] [address] [place] [address] Dr. Yaz Nur MCHC (RBC) [Mass/Vol] 34.3 g/dL Normal 29.9-35.2 [facility] Comment on above: Performed By: #### C BC #### [facility] [address] [address] [address] Yaz Nur MCV (RBC) [Entitic vol] 91.1 fL Normal 80.0-94.0 [facility] Comment on above: Performed By: #### C BC #### [facility] [address] [address] [address] Yaz Nur MONO # 0.6 103/ul Normal 0.3-0.8 [facility] Comment on above: Performed By: #### C BC #### [facility] [address] [place] [address] Dr. Yaz Nur Monocytes/100 WBC (Bld) 10.2 % Normal 1.7-12.0 [facility] Comment on above: Performed By: #### C BC #### [facility] [address] [place] [address] Dr. Yaz Nur NEUT # 3.2 103/ul Normal 1.4-6.5 [facility] Comment on above: Performed By: #### C BC #### [facility] [address] [place] [address] Dr. Yaz Nur Neutrophils/100 WBC (Bld) 51.8 % Normal 43.0-75.0 [facility] Comment on above: Performed By: #### C BC #### [facility] [address] [place] [address] Dr. Yaz Nur Platelet mean volume (Bld) [Entitic vol] 10.7 fL Normal 9.5-13.5 [facility] Comment on above: Performed By: #### C BC #### [facility] [address] [place] [address] Dr. Yaz Nur PLT 174 103/ul Normal 150-450 [facility] Comment on above: Performed By: #### C BC #### [facility] [address] [place] [address] Dr. Yaz Nur RBC 5.18 106/ul Normal 4.70-6.10 [facility] Comment on above: Performed By: #### C BC #### [facility] [address] [place] [address] Dr. Yaz Nur WBC 6.2 103/ul Normal 4.0-11.0 [facility] Comment on above: Performed By: #### C BC #### [facility] [address] [place] [address] Dr. Yaz Nur Covid-19 PCR ([facility])on SARS-CoV-2 (COVID-19) RNA SHIRLENE+probe Ql (Unsp spec) Not detected Normal NOT DETECTED [facility] Comment on above: Result Comment: When [...] for this test is supported by the Control Tower Radio Operator of Health and Human Service's declaration [...] Performed By: #### C MP, BNP #### [facility] [address] [place] [address] Dr. Yaz Nur PROF 14(COMP METB)on 022 Albumin [Mass/Vol] 4.3 g/dL Normal 3.4-5.0 [facility] Comment on above: Performed By: #### B BUSINESS ADMINISTRATION TEACHER, CMP, HSTROPN #### [facility] [address] [place] [address] Dr. Yaz Nur Albumin/Globulin [Mass ratio] 1.7 {ratio} Normal [facility] Comment on above: Performed By: #### B BUSINESS ADMINISTRATION TEACHER, CMP, HSTROPN #### [facility] [address] [address] [address] Yaz Nur ALP [Catalytic activity/Vol] 102 U/L Normal 46-116 [facility] Comment on above: Performed By: #### B BUSINESS ADMINISTRATION TEACHER, CMP, HSTROPN #### [facility] [address] [address] [address] Yaz Nur ALT [Catalytic activity/Vol] 27 U/L Normal 16-63 [facility] Comment on above: Performed By: #### B BUSINESS ADMINISTRATION TEACHER, CMP, HSTROPN #### [facility] [address] [address] [address] Yaz Nur Anion gap [Moles/Vol] 10.8 mmol/L Normal [facility] Comment on above: Performed By: #### B BUSINESS ADMINISTRATION TEACHER, CMP, HSTROPN #### [facility] [address] [place] [address] Dr. Yaz Nur AST [Catalytic activity/Vol] 33 U/L Normal 15-37 [facility] Comment on above: Performed By: #### B BUSINESS ADMINISTRATION TEACHER, CMP, HSTROPN #### [facility] [address] [address] [address] Yaz Nur Bilirubin [Mass/Vol] 1.0 mg/dL Normal 0.2-1.0 [facility] Comment on above: Performed By: #### B BUSINESS ADMINISTRATION TEACHER, CMP, HSTROPN #### [facility] [address] [address] [address] Yaz Nur Calcium [Mass/Vol] 9.0 mg/dL Normal 8.5-10.1 [facility] Comment on above: Performed By: #### B BUSINESS ADMINISTRATION TEACHER, CMP, HSTROPN #### [facility] [address] [address] [address] Yaz Nur Chloride [Moles/Vol] 105 mmol/L Normal 98-107 [facility] Comment on above: Performed By: #### B BUSINESS ADMINISTRATION TEACHER, CMP, HSTROPN #### [facility] [address] [address] [address] Yaz Nur CO2 [Moles/Vol] 28.5 mmol/L Normal 21.0-32.0 [facility] Comment on above: Performed By: #### B BUSINESS ADMINISTRATION TEACHER, CMP, HSTROPN #### [facility] [address] [place] [address] Dr. Yaz Nur Creatinine [Mass/Vol] 0.92 mg/dL Normal 0.70-1.30 [facility] Comment on above: Performed By: #### B BUSINESS ADMINISTRATION TEACHER, CMP, HSTROPN #### [facility] [address] [address] [address] Yaz Nur EGFR-AF NAMIBIAN >60 Normal >=60 [facility] Comment on above: Performed By: #### B BUSINESS ADMINISTRATION TEACHER, CMP, HSTROPN #### [facility] [address] [place] [address] Dr. Yaz Nur EGFR-NON AF NAMIBIAN >60 Normal >=60 [facility] Comment on above: Performed By: #### B BUSINESS ADMINISTRATION TEACHER, CMP, HSTROPN #### [facility] [address] [place] [address] Dr. Yaz Nur Globulin (S) [Mass/Vol] 2.6 g/dL Normal [facility] Comment on above: Performed By: #### B BUSINESS ADMINISTRATION TEACHER, CMP, HSTROPN #### [facility] [address] [place] [address] Dr. Yaz Nur Glucose [Mass/Vol] 108 mg/dL Critically high 74-106 [facility] Comment on above: Performed By: #### B BUSINESS ADMINISTRATION TEACHER, CMP, HSTROPN #### [facility] [address] [place] [address] Dr. Yaz Nur Potassium [Moles/Vol] 4.3 mmol/L Normal 3.5-5.1 [facility] Comment on above: Result Comment: spec imen hemolysed Performed By: #### B BUSINESS ADMINISTRATION TEACHER, CMP, HSTROPN #### [facility] [address] [place] [address] Dr. Yaz Nur Protein [Mass/Vol] 6.9 g/dL Normal 6.4-8.2 [facility] Comment on above: Performed By: #### B BUSINESS ADMINISTRATION TEACHER, CMP, HSTROPN #### [facility] [address] [place] [address] Dr. Yaz Nur Sodium [Moles/Vol] 140 mmol/L Normal 136-145 [facility] Comment on above: Performed By: #### B BUSINESS ADMINISTRATION TEACHER, CMP, HSTROPN #### [facility] [address] [place] [address] Dr. Yaz Nur Urea nitrogen [Mass/Vol] 16.0 mg/dL Normal 7.0-18.0 [facility] Comment on above: Performed By: #### B BUSINESS ADMINISTRATION TEACHER, CMP, HSTROPN #### [facility] [address] [place] [address] Dr. Yaz Nur Urea nitrogen/Creatinine [Mass ratio] 17.4 mg/mg Normal [facility] Comment on above: Performed By: #### B BUSINESS ADMINISTRATION TEACHER, CMP, HSTROPN #### [facility] [address] [place] [address] Dr. Yaz Nur PROTIMEon 08-17-2022 INR Coag (PPP) [Relative time] 1.03 {INR} Normal [facility] Comment on above: Performed By: #### P T, PTT #### [facility] [address] [place] [address] Dr. Yaz Nur INR GUIDELINES SEE BELOW Normal [facility] [place] [facility] Comment on above: Result Comment: DAMON RED INR: 2.0 - 3.0 CONDITIONS NOT LISTED BELOW 2.5 - 3.5 FOR PROSTHETIC HEART VALVE REPLACEMENT 2.5 - 3.5 RECURRENT THROMBOSIS Performed By: #### P T, PTT #### [facility] [address] [place] [address] Dr. Yaz Nur PT Coag (PPP) [Time] 11.1 s Normal 9.0-11.6 [facility] Comment on above: Performed By: #### P T, PTT #### [facility] [address] [place] [address] Dr. Yaz Nur PTTon 08-17-2022 aPTT Coag (Bld) [Time] 27.7 s Normal 22.3-36.2 [facility] Comment on above: Performed By: #### P T, PTT #### [facility] [address] [place], [place] [address] Dr. Yaz Nur TROPONIN, HIGH SENSITIVITYon 08-17-2022 HSTROP 7.5 pg/mL Normal 4.0-76.1 [facility] Comment on above: Result Comment: CUT- OFF POINTS HAVE BEEN ESTABLISHED BASED ON THE FOURTH UNIVERSAL DEFINITIONS OF MYOCARDIAL INFARCTION. THE UPPER REFERENCE LIMIT (URL) OF TROPONIN, DEFINED THE 99TH PERCENTILE OF cTnI DISTRIBUTION IN A REFERENCE POPULATION, HAS BEEN CONFIRMED THE DECISION THRESHOLD FOR CT DIAGNOSIS. Performed By: #### B BUSINESS ADMINISTRATION TEACHER, CMP, HSTROPN #### [facility] [address] [place], [place] [address] Dr. Yaz Nur XR CHEST 1 Von [...] CEFERINO VALDOVINOS Date: 2022-08-17 17:22 Normal [facility] Encounters Encounter Date Encounter Type Care Provider Facility Start: 09-12-2022 End: 09-13-[address] STEPHANE SMALLS Facility:[facility] Start: 09-09-2022 End: 09-10-[address] STEPHANE SMALLS Facility:[facility] Start: 08-19-2022 End: 08-19-[address] STEPHANE SMALLS Facility:[facility] Start: 08-17-2022 End: 08-18-[address] STEPHANE SMALLS Facility:[facility] Start: 02-08-2018 End: 02-09-2018 Ambulatory DEFAULT PHYSICIAN Facility:[facility] Payers Date Payer Category Payer Medicare [id number] 1940 Unknown [id number] 1940 Unknown [id number] [id number] [id number] 1940 Unknown [id number] [id number] [id number] 1940 Unknown [id number] [id number] [id number] Unknown Summary Purpose Family History No Family History Records FoundNo Family History Records Found Advance Directives No Advanced Directives Records FoundNo Advanced Directives Records Found Additional Source Comments (unrecognized sect ion and content) No Status Records FoundNo Status Records Found INFORMATION SOURCE (unrecogn ized section and content) DATE CREATED AUTHOR 05/02/2018 [facility] DATE CREATED AUTHOR AUTHOR'S ORGANIZ ATION 09/16/2022 [facility] FOR RECORDS PERTAINING TO PATIENTS WHO [...] BE BASED ON THE PRIMARY CLINICAL RECORDS. [employer] provides no warranty or guarantee of the accuracy or completeness of information in this document.
--- NOTE | 2024-10-04 11:15 | ECG_ITS ---
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
--- NOTE | 2024-10-04 11:19 | XR_ITS ---
The [address] [address] Patient Name: ESPERANZA POLANCO MRN: [id number] date: 1940 Sex: M Assigned Patient Location: ED.MAIN Current Patient Location: Accession/Order Number: [id number] Exam Date: 10/04/2024 11:30 Report Date: 10/04/2024 12:27 At the request of: RONNIE YOUNG Procedure: XR chest 1V EXAM: XR chest 1V INDICATION: Chest pain. COMPARISON: Chest x-ray 09/28/2024. TECHNIQUE: Single frontal view of the chest FINDINGS: Stable cardiomediastinal contours. Large hiatal hernia. Normal pulmonary vasculature. Stable left lung base atelectasis. No acute infiltrate. No pleural effusion or pneumothorax. No acute osseous abnormality. XR/XR chest 1V IMPRESSION: No acute cardiopulmonary process. Electronically authenticated by: LUIS SALINAS Date: 10/04/2024 12:27
--- NOTE | 2024-10-04 11:21 | ED_ITS ---
HPI - Chest Pain General Chief Complaint: Chest Pain Stated Complaint: CHEST PAIN, SOB, SWEATS Time Seen by Provider: 10/04/24 11:11 Source: patient and family Mode of arrival: Wheelchair Limitations: no limitations History of Present Illness HPI narrative: 84-year-old male presents to the emergency department for chest pain. This started 20 minutes before coming into the emergency department while he was working outside. It is in the middle of the chest and feels like somebody sitting on him. He has also been quite sweaty. He had been admitted overnight for observation at this hospital about 5 days ago and at that time had a negative workup. He had a heart catheterization about 30 years ago and none since. The pain has been continuous and he is not complaining of shortness of breath to me. Related Data Home Medications ?Medication ?Instructions ?Recorded ?Confirmed amlodipine 5 mg tablet 5 mg PO DAILY 05/10/24 10/04/24 aspirin 81 mg chewable tablet 81 mg PO DAILY 05/10/24 10/04/24 (Children's Aspirin) fenofibrate nanocrystallized 145 145 mg PO DAILY 05/10/24 10/04/24 mg tablet rosuvastatin 5 mg tablet 5 mg PO DAILY 05/10/24 10/04/24 thyroid (pork) 90 mg tablet 90 mg PO DAILY 05/10/24 10/04/24 ([place] Thyroid) vitamin E (dl, acetate) 400 unit PO DAILY 05/10/24 10/04/24 memantine 21 mg capsule 21 mg PO Q24H 10/04/24 10/04/24 sprinkle,extended release 24hr Previous Rx's ?Medication ?Instructions ?Recorded nitroglycerin 0.4 mg sublingual 0.4 mg sublingual Q5M PRN chest 05/10/24 tablet pain #20 tabs isosorbide mononitrate 30 mg 60 mg (2 x 30 mg) PO DAILY #60 tabs 09/29/24 tablet,extended release 24 hr pantoprazole 40 mg tablet,delayed 40 mg PO DAILY #30 tabs 09/29/24 release (Protonix) Allergies Allergy/AdvReac Type Severity Reaction Status Date / Time No Known Drug Allergies Allergy Verified 10/04/24 11:14 Review of Systems ROS Narrative A ten point review of systems is negative except as noted above. [facility] Medical History (Updated 10/04/24 @ 11:21 by Joey Ortiz MD) Chest pain ?R07.9 - Chest pain, unspecified (ICD-10) Hypercholesterolemia ?E78.00 - Pure hypercholesterolemia, unspecified (ICD-10) Coronary artery disease ?I25.10 - Atherosclerotic heart disease of [place] coronary artery without angina pectoris (ICD-10) Hypertension ?I10 - Essential (primary) hypertension (ICD-10) History of left heart catheterization ?Z98.890 - Other specified postprocedural states (ICD-10) Chest pain, rule out acute myocardial infarction ?R07.9 - Chest pain, unspecified (ICD-10) Surgical History (Updated 09/29/24 @ 03:37 by Maricruz Betancourt RN) Hx of tonsillectomy ?Z90.89 - Acquired absence of other organs (ICD-10) H/O right knee surgery ?Z98.890 - Other specified postprocedural states (ICD-10) Family History (Updated 09/29/24 @ 03:38 by Maricruz Betancourt RN) Mother Family history of cancer Father Family history of hypertension Social History Within the past year, how often did you have a drink containing alcohol: never Score interpretation: A score less than 4 is consistent with normal alcohol consumption. 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 General: The patient appears no apparent distress. Patient is resting comfortably on cart. Skin: Warm, mildly diaphoretic, no pallor noted. There is no rash noted. Head: Normocephalic, atraumatic Eye: Normal conjunctiva, no drainage Ears, Nose, Mouth, and Throat: oral mucosa is moist. Nares patent. Cardiovascular: Regular Rate and Rhythm Respiratory: Patient is in no distress, no accessory muscle use, lungs are clear to auscultation, no wheezing, rales or rhonchi Back: non-tender GI: Soft and nontender Musculoskeletal: The patient has no evidence of calf tenderness, no pitting edema, symmetrical pulses noted bilaterally Neurological: A&O, normal speech Psychiatric: Cooperative Constitutional Vital Signs, click to edit/add: Last Vital Signs Temp 97.5 F L 10/04/24 11:08 Pulse 52 L 10/04/24 11:30 Resp 16 10/04/24 11:30 BP 107/80 10/04/24 11:30 Pulse Ox 96 10/04/24 11:30 O2 Del Method Nasal Cannula 10/04/24 11:26 O2 Flow Rate 2 10/04/24 11:26 Course Vital Signs Vital signs: Vital Signs Temperature 97.5 F L 10/04/24 11:08 Pulse Rate 48 L 10/04/24 11:08 Respiratory Rate 18 10/04/24 11:08 Blood Pressure 128/82 10/04/24 11:08 Pulse Oximetry 95 10/04/24 11:08 Oxygen Delivery Method Room Air 10/04/24 11:08 Temperature 97.5 F L 10/04/24 11:08 Pulse Rate 52 L 10/04/24 11:30 Respiratory Rate 16 10/04/24 11:30 Blood Pressure 107/80 10/04/24 11:30 Pulse Oximetry 96 10/04/24 11:30 Oxygen Delivery Method Nasal Cannula 10/04/24 11:26 Oxygen Delivery Flow Rate 2 10/04/24 11:26 MDM - Chest Pain MDM Narrative Medical decision making narrative: EKG on my interpretation shows STEMI with ST elevation in V2 and V3 and V4. He has a suggestion of ST elevation in lead I as well and depression in lead III. This is compared to an EKG taken on September 29 of this year and it is markedly different. He did not have any of these changes at that time. I have spoken to Dr. Patton who requests that the patient be given heparin and Brilinta and this is being accomplished. He was also given aspirin and nitroglycerin here. He is hemodynamically stable and is being transferred to [facility]. Differential Diagnosis Differential diagnosis: Likely pneumothorax, unstable angina pectoris, atypical chest pain, st elevation myocardial infarction, costochondritis and chest pain Lab Data Labs: Lab Results 10/04/24 Range/Units 11:15 WBC 8.0 (4.0-11.0) 10^3/uL RBC 5.13 (4.70-6.10) 10^6/uL Hgb 16.0 (14.0-18.0) g/dL Hct 46.4 (42.0-54.0) % MCV 90.4 (80.0-94.0) fL MCH 31.2 (25.9-34.0) pg MCHC 34.5 (29.9-35.2) g/dL RDW 13.0 (11.0-15.0) % Plt Count 202 (150-450) 10^3/uL MPV 10.0 (9.5-13.5) fL Neut % (Auto) 42.9 L (43.0-75.0) % Lymph % (Auto) 36.1 (20.5-60.0) % [place] % (Auto) 13.6 H (1.7-12.0) % Eos % (Auto) 6.0 (0.9-7.0) % Baso % (Auto) 1.1 (0.2-2.0) % Neut # (Auto) 3.4 (1.4-6.5) 10^3/uL Lymph # (Auto) 2.9 (1.2-3.8) 10^3/uL [place] # (Auto) 1.1 H (0.3-0.8) 10^3/uL Eos # (Auto) 0.5 (0.0-0.7) 10^3/uL Baso # (Auto) 0.1 (0.0-0.1) 10^3/uL Abs Immat Gran (auto) 0.02 (0.00-0.03) 10^3/uL Imm/Tot Granulo (auto) 0.3 (0.0-0.5) % Imaging Data Chest x-ray: My impression: No acute findings ECG Data Attestation: I personally reviewed and interpreted this ECG as follows: (EKG on my interpretation shows ST elevation in leads V2, V3 and V4. He also has elevation in lead I and depression in lead III.) Heart Score History: Highly Suspicious ECG: Sign. ST Depression Age: >65 years Risk Factors: >3 Risk Factors/ HX of CAD:2 Troponin: <Normal Limit Total Heart Score Recommendations & Risks:: 8 Critical Care Time Critical Care Time Critical Care Time: Yes Total Critical Care Time: 45 Attestation: Due to the high probability of sudden and clinically significant deterioration in the patient's condition he/she required the highest level of my preparedness to intervene urgently I provided critical care time including documentation time, medication orders and management, reevaluation, vital sign assessment, ordering and reviewing of lab tests, ordering and reviewing of x-ray studies, and admission orders. Aggregate critical care time is 45 minutes including only time during which I was engaged in work directly related to his/her care and did not include time spent treating other patients simultaneously. Discharge Plan Discharge Chief Complaint: Chest Pain Clinical Impression: ST elevation myocardial infarction (STEMI) Patient Disposition: [facility] Time of Disposition Decision: 11:21 Discharge Location: [facility] Condition: Fair Mode of Transportation: [employer]
[2024-10-04 11:25] LABS: Basophils Absolute Auto 0.1 10^3/uL (0.0-0.1); Basophils Percent Auto 1.1 % (0.2-2.0); Eosinophils Absolute Auto 0.5 10^3/uL (0.0-0.7); Hematocrit 46.4 % (42.0-54.0); Immature Granulocytes Abs Auto 0.02 10^3/uL (0.00-0.03); Immature Granulocytes Pct Auto 0.3 % (0.0-0.5); Lymphocytes Absolute Auto 2.9 10^3/uL (1.2-3.8); Lymphocytes Percent Auto 36.1 % (20.5-60.0); Mean Corpuscular HGB Conc 34.5 g/dL (29.9-35.2); Mean Corpuscular Hemoglobin 31.2 pg (25.9-34.0); Mean Corpuscular Volume 90.4 fL (80.0-94.0); Monocytes Absolute Auto 1.1 10^3/uL (0.3-0.8); Monocytes Percent Auto 13.6 % (1.7-12.0); Neutrophils Absolute Auto 3.4 10^3/uL (1.4-6.5); Neutrophils Percent Auto 42.9 % (43.0-75.0); Platelet Count 202 10^3/uL (150-450); Red Blood Count 5.13 10^6/uL (4.70-6.10)
[2024-10-04] MEDS: HEPARIN SODIUM (PORCINE) 5,000 UNIT/ML VIAL 2700 UNIT IV (11:28)
[2024-10-04] MEDS: TICAGRELOR 90 MG TABLET 180 MG PO (11:29)
[2024-10-04] MEDS: NITROGLYCERIN 0.4 MG BOTTLE SL (11:29)
[2024-10-04 11:43] LABS: Anion Gap 15.3; BUN Creatinine Ratio 11.6; Carbon Dioxide 20.2 mmol/L (21.0-32.0); Chloride 109 mmol/L (98-107); Estimated GFR (African America 52 (>=60 mL/min/1.73m^2); Estimated GFR (Non-African Ame 43 (>=60 mL/min/1.73m^2); Glucose 134 mg/dL (74-106); Potassium 3.5 mmol/L (3.5-5.1); Sodium 141 mmol/L (136-145)
[2024-10-04 11:46] LABS: Troponin I High Sensitivity 26.2 pg/mL (4.0-76.1)
== END 2024-10-04 12:06 | disposition short-term general hospital (02) ==
PROVIDERS: Emergency Provider Emergency Medicine; PCP Family Medicine
DX: I21.3 ST elevation (STEMI) myocardial infarction of unspecified site (principal)
CPT/HCPCS: 36415; 71045; 80048; 84484; 85025; 93005; 96374; 99285; J1644

== ENCOUNTER 2024-11-11 07:05 | Outpatient (RCR) | payer MEDICARE, SELFPAY ==
--- NOTE | 2024-10-30 10:36 | CR1_ITS ---
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
--- NOTE | 2024-11-03 09:39 | CR1_ITS ---
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
== END 2024-11-11 12:05 | disposition home or self-care (01) ==
LOC: CR 07:05
PROVIDERS: PCP Family Medicine; Visit Provider Internal Medicine Cardiovascular Disease
DX: I21.9 Acute myocardial infarction, unspecified (principal); I25.5 Ischemic cardiomyopathy
CPT/HCPCS: 93798

== ENCOUNTER 2025-01-30 07:04 | Outpatient (RCR) | payer MEDICARE, SELFPAY ==
--- NOTE | 2024-11-27 08:00 | CR1_ITS ---
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
--- NOTE | 2024-12-29 14:00 | CR1_ITS ---
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
== END 2025-01-30 09:33 | disposition home or self-care (01) ==
LOC: CR 07:04
PROVIDERS: PCP Family Medicine; Visit Provider Internal Medicine Cardiovascular Disease
DX: I21.9 Acute myocardial infarction, unspecified (principal); I25.5 Ischemic cardiomyopathy
CPT/HCPCS: 93798

== ENCOUNTER 2025-03-15 21:42 | Emergency (ER) | payer MEDICARE, SELFPAY ==
[2025-03-15] VITALS (15 sets, daily range): BP systolic 155–180; BP diastolic 106–120; PULSE 58–74; TEMP 36.3; O2SAT 95–98; BMI 28.0
--- NOTE | 2025-03-15 22:44 | ECG_ITS ---
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 Measurements Intervals [place] Rate: 61 P: 49 [place]: 244 QRS: 176 QRSD: 88 T: 60 QT: 398 QTc: 402 Interpretive Statements 1100 Sinus rhythm 2231 First degree AV block 3234 Anteroseptal myocardial infarction, age undetermined [address] depression 5120 Possible right ventricular hypertrophy 9150 abnormal ECG Compared to ECG 10/04/2024 11:10:25 ST no longer elevated in anterolateral leads Myocardial infarct finding still present Electronically Signed On 03-16-2025 7:48:04 EDT by ANANT YUN M.D.
[2025-03-15 22:54] LABS: Basophils Absolute Auto 0.1 10^3/uL (0.0-0.1); Basophils Percent Auto 0.7 % (0.2-2.0); Eosinophils Absolute Auto 0.3 10^3/uL (0.0-0.7); Eosinophils Percent Auto 4.1 % (0.9-7.0); Hematocrit 48.4 % (42.0-54.0); Hemoglobin 16.4 g/dL (14.0-18.0); Immature Granulocytes Abs Auto 0.03 10^3/uL (0.00-0.03); Immature Granulocytes Pct Auto 0.4 % (0.0-0.5); Lymphocytes Absolute Auto 1.1 10^3/uL (1.2-3.8); Lymphocytes Percent Auto 16.5 % (20.5-60.0); Mean Corpuscular HGB Conc 33.9 g/dL (29.9-35.2); Mean Corpuscular Hemoglobin 31.4 pg (25.9-34.0); Mean Corpuscular Volume 92.5 fL (80.0-94.0); Mean Platelet Volume 10.2 fL (9.5-13.5); Monocytes Absolute Auto 0.6 10^3/uL (0.3-0.8); Monocytes Percent Auto 8.9 % (1.7-12.0); Neutrophils Absolute Auto 4.7 10^3/uL (1.4-6.5); Neutrophils Percent Auto 69.4 % (43.0-75.0); Platelet Count 189 10^3/uL (150-450); Red Blood Count 5.23 10^6/uL (4.70-6.10); Red Cell Distribution Width 13.9 % (11.0-15.0); White Blood Count 6.8 10^3/uL (4.0-11.0)
[2025-03-15] MEDS: ACETAMINOPHEN 500 MG TABLET PO (22:57)
[2025-03-15] MEDS: NITROGLYCERIN IN 5 % DEXTROSE 50 MG/250 ML INFUS..BTL IV (22:58)
[2025-03-15 23:02] LABS: Partial Thromboplastin Time 27.6 sec (22.3-36.2)
[2025-03-15 23:06] LABS: Alanine Aminotransferase 37 U/L (16-63); Albumin Globulin Ratio 1.5; Alkaline Phosphatase 100 U/L (46-116); Anion Gap 6.5; Aspartate Amino Transferase 28 U/L (15-37); BUN Creatinine Ratio 14.6; Bilirubin Total 0.9 mg/dL (0.2-1.0); Calcium 9.1 mg/dL (8.5-10.1); Carbon Dioxide 29.2 mmol/L (21.0-32.0); Chloride 105 mmol/L (98-107); Estimated GFR (African America 51 (>=60 mL/min/1.73m^2); Estimated GFR (Non-African Ame 42 (>=60 mL/min/1.73m^2); Globulin 2.7 g/dL; Glucose 123 mg/dL (74-106); Potassium 3.7 mmol/L (3.5-5.1); Sodium 137 mmol/L (136-145); Total Protein 6.7 g/dL (6.4-8.2)
[2025-03-15 23:16] LABS: Magnesium 2.1 mg/dL (1.8-2.4); TSH W/ REFLEX FT4 0.621 uIU/mL (0.358-3.740); Troponin I High Sensitivity 32.8 pg/mL (4.0-76.1)
--- NOTE | 2025-03-15 23:21 | ECG_ITS ---
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 Measurements Intervals [place] Rate: 60 P: 38 [place]: 210 QRS: 162 QRSD: 86 T: 58 QT: 414 QTc: 415 Interpretive Statements 1100 Sinus rhythm 2231 First degree AV block 3113 Cannot rule out anterior myocardial infarction, probably old [address] depression 5120 Possible right ventricular hypertrophy 9150 abnormal ECG Compared to ECG 03/15/2025 21:50:21 No significant changes Electronically Signed On 03-16-2025 7:48:36 EDT by ANANT YUN M.D.
--- NOTE | 2025-03-15 23:24 | PC.NURSE ---
Repeat 12 lead done due to pt's new c/o L arm pain rated at a 3-4.
[2025-03-16] VITALS (75 sets, daily range): BP systolic 109–157; BP diastolic 80–107; PULSE 49–86; O2SAT 93–98
--- NOTE | 2025-03-16 00:02 | ED_ITS ---
HPI - Chest Pain General Chief Complaint: Chest Pain Stated Complaint: CHEST PAINS Time Seen by Provider: 03/15/25 22:03 Source: patient Mode of arrival: walk-in History of Present Illness HPI narrative: The patient is a 84-year-old gentleman who presents to the emergency department with his for chest pain. Chest pain began after dinner at 630. It was a pressure-like sensation at an 8 out of 10. Unknown what made it worse. Nothing made it better. It radiated to the left arm. It was associate with nausea and sweating. Patient denied really having any shortness of breath. Patient stated that this is exactly how he felt when he had his myocardial infarction in October. At that time, the patient went to [facility] where he underwent percutaneous intervention by Dr. Patton. Patient actually just saw Dr. Patotn on March 10. He stated in his appointment he was doing well and the patient was able to go off of his Eliquis and his Imdur. The doctor apparently told him to hold onto his Imdur as he may have to started up again. Patient stated he took a nitro at home that did not provide any relief. He has not had a taken nitro since his cardiac catheterization in October 2024. 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 Instructions: unknown aspirin 81 mg chewable tablet 81 mg PO DAILY 05/10/24 03/15/25 (Children's Aspirin) fenofibrate nanocrystallized 145 145 mg PO DAILY 05/1003/15/25 mg tablet vitamin E (dl, acetate) 400 unit PO DAILY 05/10/24 0 03/15/25 memantine 21 mg capsule 21 mg PO Q24H 10/04/2403/15 sprinkle,extended release 24hr apixaban 5 mg tablet (Eliquis) mg 03/15/25 atorvastatin 80 mg tablet mg 03/15/25 carvedilol 6.25 mg tablet mg 03/15/25 clopidogrel 75 mg tablet mg 03/15/25 losartan 25 mg tablet mg 03/15/25 Previous Rx's ?Medication ?Instructions ?Recorded nitroglycerin 0.4 mg sublingual 0.4 mg sublingual Q5M PRN chest 05/10/24 tablet pain #20 tabs isosorbide mononitrate 30 mg 60 mg (2 x 30 mg) PO KATTY Y #60 tabs 09/29/24 tablet,extended release 24 hr Held on 03/15/25. Instructions: Doctor's Order pantoprazole 40 mg tablet,delayed 40 mg PO DAILY #30 t abs 09/29/24 release (Protonix) Allergies Allergy/AdvReac Type Severity Reaction Status Date / Time No Known Drug Allergies Allergy Verified 10/04/24 11:14 Review of Systems ROS Status of ROS 10 or more systems reviewed and unremark able except as noted in history and below PFSH [facility] Medical History Chest pain ?R07.9 - Chest pain, unspecified (ICD-10) Hypercholesterolemia ?E78.00 - Pure hypercholesterolemia, unspecified (ICD-10) Coronary artery disease ?I25.10 - Atherosclerotic heart disease of [place] coronary artery without angina pectoris (ICD-10) Hypertension ?I10 - Essential (primary) hypertension (ICD-10) History of left heart catheterization ?Z98.890 - Other specified postprocedural states (ICD-10) Chest pain, rule out acute myocardial infarction ?R07.9 - Chest pain, unspecified (ICD-10) Surgical History Hx of tonsillectomy ?Z90.89 - Acquired absence of other organs (ICD-10) H/O right knee surgery ?Z98.890 - Other specified postprocedural states (ICD-10) Family History Mother Family history of cancer Father Family history of hypertension Social History Within the past year, how often did you have a drink containing alcohol: never Score interpretation: A score less than 4 is consistent with normal alcohol consumption. Smoking status: Never smoker Non-prescribed substance use: denies use Previous occupational history: [employer] Highest level of school completed/degree received: high school graduate Are you now , , , , never or living with a partner: Little interest or pleasure in doing things: not at all Feeling down, depressed, or hopeless: not at all Feel stressed/tense/nervous/anxious/difficulty sleeping: not at all Do you think of yourself as: straight/heterosexual Gender Identity: male Exam Narrative Exam Narrative: Prior to examining the patient, I have washed with hospital approved and provided Antiseptic 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 Prior to touching the patient, I asked for consent to examine the patient.? General: Alert and oriented, well nourished, mild distress. Eye: PERRL, EOMI, normal conjunctiva. HENT: Normocephalic, normal hearing, moist oral mucosa, no scleral icterus, no sinus tenderness. Neck: Supple, non-tender, no carotid bruits, no JVD, no lymphadenopathy. Lungs: Clear to auscultation and percussion, non-labored respiration. No rhonchi, rales, wheezing Heart: Normal rate, regular rhythm, no murmur, gallop or edema. Abdomen: Soft, non-tender, non-distended, normal bowel sounds, no masses. Musculoskeletal: Normal range of motion and strength, no tenderness or swelling. Skin: Skin is warm, dry and pink, no rashes or lesions. Neurologic: Awake, alert, and oriented X3, CN II-XII intact. Psychiatric: Cooperative, appropriate mood and affect.? Following the conclusion of the examination, I have washed my hands thoroughly after removing examination gloves. Constitutional Vital Signs, click to edit/add: Last Vital Signs Temp 97.3 F L 03/15/25 21:50 Pulse 53 L 03/16/25 04:00 Resp 17 03/16/25 04:00 BP 127/85 03/16/25 04:00 Pulse Ox 97 03/16/25 04:00 O2 Del Method Room Air 03/15/25 21:50 Course Reevaluation(s) Reevaluation #1: Pain in the chest is now tight and a 1-2/10. Nitro gtt at 10 mcg/min. The patient BP 142/96. Patient resting comfortably. Time: 00:03 Reevaluation #2: Patient was given morphine for management for the remaining chest pain as well as for some leg cramps he was having. Consultations Consultation #1: Discussed this case with Dr. HAN at [facility] who did agree to accept the transfer of the patient. Like me, he feels that it is hypertension less uncontrolled causing the gentleman to have chest pain. Time: 02:42 Consultation #2: I did discuss this case with the hospitalist for [facility]. They stated that with the patient being on heparin they strongly thought that the patient was going to need percutaneous intervention again and felt he should go back to where his procedure was originally performed. Time: 02:15 Vital Signs Vital signs: Vital Signs Pulse Rate 70 03/15/25 21:48 Respiratory Rate 23 H 03/15/25 21:48 Temperature 97.3 F L 03/15/25 21:50 Pulse Rate 53 L 03/16/25 04:00 Respiratory Rate 17 03/16/25 04:00 Blood Pressure 127/85 03/16/25 04:00 Pulse Oximetry 97 03/16/25 04:00 Oxygen Delivery Method Room Air 03/15/25 21:50 MDM - Chest Pain Differential Diagnosis Differential diagnosis: Likely pneumothorax, stable angina, unstable angina pectoris, atypical chest pain, st elevation myocardial infarction, costochondritis, chest pain, biliary colic and other (stent occlusion) Medical Records Data Attestation: I reviewed the patient's medical records. Lab Data Attestation: I reviewed the patient's lab results. Lab results narrative: The CBC revealed no evidence of anemia or leukocytosis. Comprehensive metabolic panel was negative for any electrolyte, kidney, or liver dysfunction. And both of the patient's cardiac times were high-sensitivity yet negative for being over value and negative for any delta 6 change. The TSH was normal. Patient does have evidence of chronic kidney disease and it is not any worse than his baseline. Labs: Lab Results 03/15/25 03/16/25 Range/Units 21:55 00:05 WBC 6.8 (4.0-11.0) 10^3/uL RBC 5.23 (4.70-6.10) 10^6/uL Hgb 16.4 (14.0-18.0) g/dL Hct 48.4 (42.0-54.0) % MCV 92.5 (80.0-94.0) fL MCH 31.4 (25.9-34.0) pg MCHC 33.9 (29.9-35.2) g/dL RDW 13.9 (11.0-15.0) % Plt Count 189 (150-450) 10^3/uL MPV 10.2 (9.5-13.5) fL Neut % (Auto) 69.4 (43.0-75.0) % Lymph % (Auto) 16.5 L (20.5-60.0) % [place] % (Auto) 8.9 (1.7-12.0) % Eos % (Auto) 4.1 (0.9-7.0) % Baso % (Auto) 0.7 (0.2-2.0) % Neut # (Auto) 4.7 (1.4-6.5) 10^3/uL Lymph # (Auto) 1.1 L (1.2-3.8) 10^3/uL [place] # (Auto) 0.6 (0.3-0.8) 10^3/uL Eos # (Auto) 0.3 (0.0-0.7) 10^3/uL Baso # (Auto) 0.1 (0.0-0.1) 10^3/uL Abs Immat Gran (auto) 0.03 (0.00-0.03) 10^3/uL Imm/Tot Granulo (auto) 0.4 (0.0-0.5) % APTT 27.6 (22.3-36.2) sec Sodium 137 (136-145) mmol/L Potassium 3.7 (3.5-5.1) mmol/L Chloride 105 (98-107) mmol/L Carbon Dioxide 29.2 (21.0-32.0) mmol/L Anion Gap 6.5 BUN 23.0 H (7.0-18.0) mg/dL Creatinine 1.57 H (0.70-1.30) mg/dL Est GFR ( Amer) 51 L (>=60 mL/min/1.73m^2) Est GFR (Non-Af Amer) 42 L (>=60 mL/min/1.73m^2) BUN/Creatinine Ratio 14.6 Glucose 123 H (74-106) mg/dL Calcium 9.1 (8.5-10.1) mg/dL Magnesium 2.1 (1.8-2.4) mg/dL Total Bilirubin 0.9 (0.2-1.0) mg/dL AST 28 (15-37) U/L ALT 37 (16-63) U/L Alkaline Phosphatase 100 (46-116) U/L Troponin I High Sens 32.8 31.0 (4.0-76.1) pg/mL Total Protein 6.7 (6.4-8.2) g/dL Albumin 4.0 (3.4-5.0) g/dL Globulin 2.7 g/dL Albumin/Globulin Ratio 1.5 TSH & Free T4 Interp 0.621 (0.358-3.740) uIU/mL Imaging Data Chest x-ray: Radiologist's impression: No acute cardiopulmonary disease. ECG Data Attestation: I personally reviewed and interpreted this ECG as follows: ECG interpretation date: 03/15/25 ECG interpretation time: 21:52 Ischemic changes: non-specific ST-T wave changes Interpretation: Twelve-lead EKG reveals a sinus rhythm with a ventricular of 61 bpm. There is a first-degree AV block because the CO interval is 244 ms. QRS duration is normal at 88 ms. QTc is not prolonged. Poor R wave progression in the anteroseptal leads. The patient does have nonspecific ST segment depression in the lateral leads. T wave inversion in aVR. Otherwise nonspecific EKG. Twelve-lead EKG #2 revealed sinus rhythm with a ventricular rate of 60 bpm. William ramires continues to have a first-degree AV block with poor R wave progression in the anteroseptal leads. Normal QRS duration. QTc is not prolonged. Again nonspecific/abnormal EKG. Twelve-lead EKG #3 revealed a sinus rhythm with a ventricular rate of 55 bpm. The CO interval is prolonged owing to a first-degree AV block. QRS duration is normal. QTc is not prolonged. Nonspecific ST depression in the lateral leads. Poor R wave progression in the anteroseptal leads. Summary: Nonspecific/abnormal EKG. Discharge Plan Discharge Chief Complaint: Chest Pain Clinical Impression: Unstable angina pectoris Patient Disposition: [facility] Time of Disposition Decision: 04:22 Discharge Location: [facility] Condition: Fair Mode of Transportation: EMS
[2025-03-16] MEDS: MORPHINE SULFATE 4 MG/ML VIAL IV (01:21)
--- NOTE | 2025-03-16 02:50 | ECG_ITS ---
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 Measurements Intervals [place] Rate: 55 P: 47 [place]: 214 QRS: 164 QRSD: 84 T: 60 QT: 452 QTc: 442 Interpretive Statements 1100 Sinus rhythm 2231 First degree AV block 3113 Cannot rule out anterior myocardial infarction, probably old [address] depression 5120 Possible right ventricular hypertrophy 9150 abnormal ECG Compared to ECG 03/15/2025 23:14:15 No significant changes Electronically Signed On 03-16-2025 7:50:00 EDT by ANANT YUN M.D.
--- NOTE | 2025-03-16 05:33 | PC.NURSE ---
Report called to Declan DIETZ at [facility] [place] 4 Progressive.
--- NOTE | 2025-03-16 07:22 | ECG_ITS ---
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 Measurements Intervals [place] Rate: 51 P: 58 [place]: 250 QRS: 165 QRSD: 88 T: 71 QT: 440 QTc: 418 Interpretive Statements 1100 Sinus rhythm 2231 First degree AV block 3113 Cannot rule out anterior myocardial infarction, probably old [address] depression 5120 Possible right ventricular hypertrophy 9150 abnormal ECG Compared to ECG 03/16/2025 02:47:19 No significant changes Electronically Signed On 03-16-2025 7:51:11 EDT by ANANT YUN M.D.
[2025-03-16 07:52] LABS: Troponin I High Sensitivity 30.2 pg/mL (4.0-76.1)
== END 2025-03-16 12:15 | disposition short-term general hospital (02) ==
PROVIDERS: Student in an Organized Health Care Education/Training Program; Emergency Provider Emergency Medicine; PCP Family Medicine
DX: I25.110 Atherosclerotic heart disease of native coronary artery with unstable angina pectoris (principal); I25.2 Old myocardial infarction; E78.00 Pure hypercholesterolemia, unspecified; I10 Essential (primary) hypertension
CPT/HCPCS: 36415; 71045; 80053; 83735; 84443; 84484; 85025; 85730; 93005; 96374; 96375; 99285; J2270; J2305